=== PATIENT | female | born 1945 | race Caucasian/White ===

== ENCOUNTER → 2017-07-06 11:57 | Outpatient (CLI) | payer OTHER, SELFPAY ==
[2017-07-06 12:31] LABS: Add Manual Diff / Slide Review NO; Basophils Percent Auto 0.6 % (0-2); Hematocrit 36.5 % (36-46); Hemoglobin 12.3 g/dL (12.0-16.0); Lymphocytes Percent Auto 29.3 % (25-40); Mean Corpuscular HGB Conc 33.7 % (30-36); Mean Corpuscular Hemoglobin 29.6 PG (26-34); Monocytes Percent Auto 8.5 % (3-14); Neutrophils Absolute Auto 4200 /uL (3000-5900); Neutrophils Percent Auto 57.6 % (50-75); Platelet Count 249 X10^3/uL (150-400); Red Blood Cell Count 4.15 X10^6/uL (4.0-5.2); Red Cell Distribution Width 14.3 % (11.6-14.8); White Blood Cell Count 7.4 X10^3/uL (4.5-11.0)
[2017-07-06 12:45] LABS: Alanine Aminotransferase 64 IU/L (9-52); Albumin 4.3 g/dL (3.5-5.0); Albumin Globulin Ratio 1.4 (1.0-2.8); Alkaline Phosphatase 65 U/L (38-126); Aspartate Aminotransferase 47 IU/L (14-36); BUN Creatinine Ratio 21.3 (6-22); Bilirubin Total 0.5 mg/dL (0.2-1.3); Calcium 9.3 mg/dL (8.4-10.2); Estimated Glomerular Filt Rate > 60.0 mL/min (>60); Globulin 3.1 g/dL (1.7-4.1); Glucose 156 mg/dL (80-110); HEMOLYSIS < 15 (0-50); Potassium 4.6 mmol/L (3.4-5.1); Sodium 138 mmol/L (137-145); Total Protein 7.4 g/dL (6.3-8.2)
[2017-07-11 15:49] LABS: Chromogranin A, Serum 81 ng/mL (25-140)
[2017-07-14 08:06] LABS: 5-HIAA, Urine 9.5 mg/24 h (< OR = 6.0); Total Volume 2500 mL
== END ==
PROVIDERS: Family Provider Internal Medicine; PCP Internal Medicine; Visit Provider Internal Medicine Hematology & Oncology
DX: C00-D49 Neoplasms (principal)
CPT/HCPCS: 36415; 80053; 82570; 83497; 85025; 86316

== ENCOUNTER → 2017-07-06 13:44 | Outpatient (CLI) | payer OTHER, SELFPAY ==
--- NOTE | 2017-07-06 13:46 | DI.CT.S_ITS ---
PROCEDURE: CT ABDOMEN WO/W CON INDICATIONS: MASS OF SMALL INTESTINE TECHNIQUE: 4 phase scanning was performed. Non-contrast 5 mm axial sections acquired from the diaphragm to the iliac crests. Following the administration of intravenous contrast, 5 mm thick arterial-phase, portal venous-phase, and 5-minute delayed phase images were acquired through the liver. 5 mm thick coronal and sagittal reformats were performed. For radiation dose reduction, the following was used: automated exposure control, adjustment of mA and/or kV according to patient size. COMPARISON: [facility], CT, THORAX WITH CONTRAST, 01/11/2016, 8:48. [facility], CT, ABDOMEN/PELVIS WITH CONTRAST, 10/19/2015, 10:49. FINDINGS: Image quality: Excellent. Lung bases: There is a small subpleural nodule in the right lower lobe measuring up to 5 mm which appears similar to the prior study. Mild dependent atelectasis is present bilaterally. Heart size is normal. Liver: Within the right posterior hepatic dome in segment 7, there is a peripheral subcapsular peripherally enhancing hyperattenuating lesions measuring up to 2.3 x 1.0 x 1.2 cm. In addition, along the falciform ligament of the left hepatic lobe, there is a peripheral subcapsular hyperattenuating lesion measuring approximately 1.5 x 1.1 x 1.1 cm. Given its small size, evaluate for internal enhancement is limited. The findings are new from the prior study. Other solid organs: Gallbladder is surgically absent. Biliary system is non dilated. Pancreas is normal in morphology. Spleen is normal in size and enhancement. No adrenal nodules. Both kidneys demonstrate normal size and enhancement, without hydronephrosis or nephrolithiasis. Nodes and vessels: No retroperitoneal or mesenteric adenopathy by size criteria. Aorta and inferior vena cava are normal in size. Bowel and peritoneum: There are postsurgical changes in the right lower quadrant compatible with prior partial resection. Visualized bowel loops are normal in caliber and wall thickness. No free fluid or air. Bones: No suspicious bony lesions. No vertebral body compression fractures. Miscellaneous: There are postsurgical changes within the ventral abdominal wall. No ventral hernias. IMPRESSION: 1. Demonstration of 2 new subcapsular hypoattenuating lesions in the liver with peripheral enhancement demonstrated within the right lobe lesion. The findings are suspicious for metastatic disease. Dictated by: Carlos Tracey M.D. on 07/06/2017 at 15:43 Approved by: Carlos Tracey M.D. on 07/06/2017 at 15:55
== END ==
PROVIDERS: Family Provider Internal Medicine; PCP Internal Medicine; Visit Provider Internal Medicine Hematology & Oncology
DX: K76.9 Liver disease, unspecified (principal)
CPT/HCPCS: 36415; 74170; 80053; 82570; 83497; 85025; 86316

== ENCOUNTER → 2017-10-30 09:00 | Outpatient (CLI) | payer OTHER, SELFPAY ==
[2017-10-30 09:23] LABS: Add Manual Diff / Slide Review NO; Basophils Percent Auto 0.6 % (0-2); Eosinophils Percent Auto 3.6 % (2-4); Hematocrit 38.6 % (36-46); Hemoglobin 12.9 g/dL (12.0-16.0); Lymphocytes Percent Auto 30.6 % (25-40); Mean Corpuscular HGB Conc 33.3 % (30-36); Mean Corpuscular Hemoglobin 29.6 PG (26-34); Mean Corpuscular Volume 88.7 fL (80-100); Monocytes Percent Auto 8.9 % (3-14); Neutrophils Absolute Auto 4100 /uL (3000-5900); Neutrophils Percent Auto 56.3 % (50-75); Platelet Count 279 X10^3/uL (150-400); Red Blood Cell Count 4.35 X10^6/uL (4.0-5.2); Red Cell Distribution Width 14.2 % (11.6-14.8); White Blood Cell Count 7.3 X10^3/uL (4.5-11.0)
[2017-10-30 09:46] LABS: Alanine Aminotransferase 50 IU/L (9-52); Albumin 4.3 g/dL (3.5-5.0); Albumin Globulin Ratio 1.5 (1.0-2.8); Alkaline Phosphatase 65 U/L (38-126); Aspartate Aminotransferase 40 IU/L (14-36); BUN Creatinine Ratio 16.7 (6-22); Bilirubin Total 0.4 mg/dL (0.2-1.3); Blood Urea Nitrogen 15 mg/dL (7-17); Carbon Dioxide 29 mmol/L (22-32); Chloride 104 mmol/L (98-107); Estimated Glomerular Filt Rate > 60.0 mL/min (>60); Globulin 2.9 g/dL (1.7-4.1); Glucose 145 mg/dL (80-110); HEMOLYSIS < 15 (0-50); Potassium 4.7 mmol/L (3.4-5.1); Sodium 143 mmol/L (137-145); Total Protein 7.2 g/dL (6.3-8.2)
[2017-11-01 18:39] LABS: Chromogranin A, Serum 97 ng/mL (25-140)
== END ==
PROVIDERS: PCP Internal Medicine; Visit Provider Internal Medicine Hematology & Oncology
CPT/HCPCS: 36415; 80053; 85025; 86316

== ENCOUNTER → 2017-10-30 09:19 | Outpatient (CLI) | payer OTHER, SELFPAY ==
--- NOTE | 2017-10-30 10:06 | DI.CT.S_ITS ---
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 5 mm coronal and sagittal reformats were performed, with additional 7 mm coronal MIP reformats through the lungs. For radiation dose reduction, the following was used: automated exposure control, adjustment of mA and/or kV according to patient size. COMPARISON: [facility], CT, ABDOMEN/PELVIS WITH CONTRAST, 10/19/2015, 10:49. [facility], CT, CT ABDOMEN WO/W CON, 07/06/2017, 13:51. FINDINGS: Image quality: Excellent. CHEST: Lungs and pleura: No acute airspace opacities. No pleural effusions or pneumothorax. Central and peripheral airways appear patent and normal in caliber. Mediastinum: Heart size is normal. No pericardial effusion. No mediastinal or hilar adenopathy by size criteria. Thoracic aorta and central pulmonary arteries are normal in size. Esophagus is normal in caliber. No hiatal hernia. Chest wall: No axillary or supraclavicular adenopathy by size criteria. Thyroid gland demonstrates no significant CT abnormality. ABDOMEN: Solid organs: The liver demonstrates 2 lesions that are smaller than on the prior. Adjacent to the falciform ligament there is a 12 by 8 by 15 mm nodule, which previously measured 23 x 10 x 12 mm. Within the subcapsular right lateral liver dome, there is a nodule seen that measures 11 x 11 x 15 mm, which previously measured 15 x 11 x 11 mm. Gallbladder has been removed. Biliary system is non dilated. Pancreas enhances normally. Spleen is normal in size and enhancement. No adrenal nodules. Kidneys demonstrate normal size and enhancement, without hydronephrosis. Peritoneum and bowel: No masses are now seen. Postoperative changes are seen in the right lower quadrant, with anastomotic staple lines. No dilated loops of small bowel are seen. No free air or significant free fluid can be seen. Nodes and vessels: No retroperitoneal or mesenteric adenopathy by size criteria. Aorta and inferior vena cava are normal in size. Bones: No suspicious bony lesions. No vertebral body compression fractures. Miscellaneous: There is a fat-containing ventral hernia seen within the epigastrium, as seen on series 4 image 58. Apparent mesh placement is seen more inferiorly. Age-appropriate bony degenerative changes are seen. IMPRESSION: 2 liver lesions are seen. One of which appears slightly smaller than on the prior and a 2nd that is stable from prior. No new lesions are seen. Incidental note is made of: Right lower quadrant postoperative change Anterior abdominal wall mesh placement Fat-containing ventral wall hernia within the epigastrium Dictated by: Lasha Mason M.D. on 10/30/2017 at 10:13 Approved by: Lasha Mason M.D. on 10/30/2017 at 10:20
== END ==
PROVIDERS: Family Provider Internal Medicine; PCP Internal Medicine; Visit Provider Internal Medicine Hematology & Oncology
DX: C7A.012 Malignant carcinoid tumor of the ileum (principal); C78.7 Secondary malignant neoplasm of liver and intrahepatic bile duct
CPT/HCPCS: 36415; 71260; 72193; 74170; 80053; 85025; 86316; Q9967

== ENCOUNTER → 2017-11-27 09:30 | Outpatient (CLI) | payer OTHER, SELFPAY ==
[2017-11-27 10:27] LABS: Hemoglobin A1C% w Est Avg Glu 6.4 % (4.0-6.0)
[2017-11-27 10:38] LABS: Cholesterol 173 mg/dL (140-199); HDL Cholesterol 53 mg/dL (40-60); LDL Cholesterol Calculated 88 mg/dL (<100); Triglycerides 161 mg/dL (35-150)
== END ==
PROVIDERS: Family Provider Internal Medicine; PCP Internal Medicine; Visit Provider Internal Medicine
DX: E11.9 Type 2 diabetes mellitus without complications (principal); E78.5 Hyperlipidemia, unspecified
CPT/HCPCS: 36415; 80061; 83036

== ENCOUNTER 2017-12-06 07:46 | Day surgery (SDC) | payer OTHER, SELFPAY ==
[2017-12-06] VITALS (8 sets, daily range): BP systolic 128–148; BP diastolic 68–80; PULSE 76–95; RESP 10–16; TEMP 35.8–37.1; O2SAT 90–95; BMI 34.7
[2017-12-06] MEDS: LACTATED RINGERS 1,000 ML 100 ML IV (08:16)
[2017-12-06] MEDS: CEFAZOLIN 2 GM/100 ML FROZ.PIGGY IV (08:45)
--- NOTE | 2017-12-06 09:07 | SUR.OPER ---
Supine on padded OR bed, head on pillow, arms secured on padded arm boards at <90 degrees abduction, legs uncrossed, safety belt at thigh, tape over blanket over lower legs.
[2017-12-06] MEDS: BUPIVACAINE 0.5% (PF) VIAL 30 ML INJ (09:18)
[2017-12-06] MEDS: LIDOCAINE 1% W/EPI INJ 20 ML INJ (09:19)
[2017-12-06] MEDS: CEFAZOLIN 1 GM VIAL IV (09:40)
--- NOTE | 2017-12-06 09:56 | PM.OP.1 ---
Operative Date/Time/Diagnoses Date of procedure: 12/06/17 Time of procedure: 09:57 Pre-op diagnosis: Incisional Hernia Post-op diagnosis: same Procedure & Clinicians Procedure: Incisional Hernia Repair Same procedure as scheduled: Yes Indications: Enlarging and painful incisional hernia Click Yes if Unassisted: Yes Anesthesia Type: General (Abdontlarctheayk) Operative Notes Findings: 8x6 cm Incisional Hernia containing transverse colon and omentum Closure Type: primary Specimen(s): none sent Implants & Drains: 8 cm circular CQur mesh implant Estimated Blood Loss (mL): 3 Blood products transfused: none Procedure in detail: After obtaining informed consent, the patient was brought to the operating room and placed in the supine position on the operating table. Following successful induction of general endotracheal, placement of appropriate monitors, and padding of all bony prominences, the abdomen was prepped and draped in the standard surgical fashion. A time-out was held per SCOAP protocol. Following infiltration with local anesthetic to create a field block, an incision was created directly over the hernia in the epigastrium and carried down through the skin subcutaneous tissue. This was all done sharply and very carefully. We immediately encountered the transverse colon which was carefully preserved. Dissection was continued to liberate the hernia sac from the overlying fascia. The omentum was freed superiorly so that it could overlie the colon. Once this was done we attempted to repair the hernia. We initially tried to repair the hernia directly using Prolene suture of the bed there were such enormous tension this matted was abandoned. Closing the upper and lower portions of the hernia with 0 Prolene suture, an 8 x 8 cm portion of C cur mesh was placed in the hernia defect. This size was chosen because it covered the defect without impinging too much on the xiphoid process which extended into the wound. The fascia over the the xiphoid process was closed to cover this bone. The graft fit nicely in the wound and was flattened. It was sewn to the fascial edges using Prolene suture. The wound was irrigated with warm saline solution and aspirated free of all fluid. The subcutaneous tissue was closed with Vicryl sutures and Monocryl was placed in the skin. All sponge, needle, and instrument counts were correct at the conclusion of the case. The patient was allowed to wake from anesthesia without difficulty and taken to the post anesthesia care unit in good condition. Complications: none Condition: stable Disposition: PACU Plan for aftercare: 1. Discharge to home 2. Follow up with me in 2 weeks
--- NOTE | 2017-12-06 10:23 | PM.PREOP ---
Pre-operative Note Interval Note Pre-op Check: Yes History & Physical Reviewed by Physician Changes: No
--- NOTE | 2017-12-06 10:33 | SUR.PHASEI ---
stablee pacu stay. to opd.
[2017-12-06] MEDS: OXYCODONE/ACETAMINOPHEN 5/325 TABLET 1 TAB PO (10:40)
--- NOTE | 2017-12-06 10:43 | SUR.PHASEII ---
pain rated 3/10, medicated with 1 percocet after tolerated applesauce. called for peanut picker.
--- NOTE | 2017-12-06 10:53 | SUR.PHASEII ---
here, vss, discussed d/c instructions, both voiced an understanding.
== END 2017-12-06 11:05 | disposition home or self-care (01) ==
PROVIDERS: PCP Internal Medicine; Visit Provider Surgery
PROC: (CPT 49560; principal; 2017-12-06 08:45)
DX: K43.2 Incisional hernia without obstruction or gangrene (principal); E11.9 Type 2 diabetes mellitus without complications; I10 Essential (primary) hypertension; E66.9 Obesity, unspecified; Z79.84 Long term (current) use of oral hypoglycemic drugs
CPT/HCPCS: 49560; 49568; C1781; J0690; J2405; J2704; J3010

== ENCOUNTER → 2018-07-03 08:17 | Outpatient (CLI) | payer OTHER, SELFPAY ==
[2018-07-03 09:27] LABS: Add Manual Diff / Slide Review NO; Basophils Absolute Auto 100 /uL (0-100); Basophils Percent Auto 0.6 % (0-2); Eosinophils Absolute Auto 200 /uL (0-450); Eosinophils Percent Auto 2.1 % (2-4); Hematocrit 39.1 % (36-46); Lymphocytes Absolute Auto 2700 /uL (1100-4500); Lymphocytes Percent Auto 33.5 % (25-40); Mean Corpuscular HGB Conc 33.4 % (30-36); Mean Corpuscular Hemoglobin 29.5 PG (26-34); Mean Corpuscular Volume 88.5 fL (80-100); Monocytes Absolute Auto 700 /uL (0-900); Monocytes Percent Auto 8.6 % (3-14); Neutrophils Absolute Auto 4500 /uL (1500-7000); Neutrophils Percent Auto 55.2 % (50-75); Platelet Count 294 X10^3/uL (150-400); Red Blood Cell Count 4.42 X10^6/uL (4.0-5.2); Red Cell Distribution Width 14.4 % (11.6-14.8); White Blood Cell Count 8.2 X10^3/uL (4.5-11.0)
[2018-07-03 09:29] LABS: Hemoglobin A1C% w Est Avg Glu 5.9 % (4.0-6.0)
[2018-07-03 09:36] LABS: Alanine Aminotransferase 33 IU/L (9-52); Albumin 4.6 g/dL (3.5-5.0); Albumin Globulin Ratio 1.5 (1.0-2.8); Alkaline Phosphatase 70 U/L (38-126); Aspartate Aminotransferase 30 IU/L (14-36); BUN Creatinine Ratio 18.8 (6-22); Bilirubin Total 0.4 mg/dL (0.2-1.3); Blood Urea Nitrogen 15 mg/dL (7-17); Calcium 9.4 mg/dL (8.4-10.2); Carbon Dioxide 25 mmol/L (22-32); Chloride 102 mmol/L (98-107); Cholesterol 175 mg/dL (140-199); Estimated Glomerular Filt Rate > 60.0 mL/min (>60); Glucose 131 mg/dL (80-110); HDL Cholesterol 52 mg/dL (40-60); HEMOLYSIS < 15 (0-50); LDL Cholesterol Calculated 89 mg/dL (<100); Potassium 4.4 mmol/L (3.4-5.1); Sodium 139 mmol/L (137-145); Total Protein 7.6 g/dL (6.3-8.2); Triglycerides 168 mg/dL (35-150)
[2018-07-03 10:22] LABS: Vitamin D 25 Hydroxy (D3) 39.9 ng/mL (30.0-100.0)
[2018-07-03 10:25] LABS: Microalbumin Urine Random 2.2 mg/dL (0-1.6)
[2018-07-03 10:26] LABS: Creatinine Urine Random 95.4 mg/dL
[2018-07-03 10:35] LABS: Hep C Virus Ab w/Reflex Quant NEGATIVE s/c (NEGATIVE)
== END ==
PROVIDERS: PCP Internal Medicine; Visit Provider Nurse Practitioner Family
DX: E11.9 Type 2 diabetes mellitus without complications (principal); Z11.59 Encounter for screening for other viral diseases; Z13.29 Encounter for screening for other suspected endocrine disorder; Z86.39 Personal history of other endocrine, nutritional and metabolic disease
CPT/HCPCS: 36415; 80053; 80061; 82043; 82306; 82570; 83036; 84443; 85025; 86803

== ENCOUNTER → 2018-07-06 15:24 | Outpatient (CLI) | payer OTHER, SELFPAY ==
--- NOTE | 2018-07-06 | DI.RAD.S_ITS ---
PROCEDURE: XR LUMBAR SPINE 2-3V INDICATIONS: LOW BACK PAIN TECHNIQUE: 3 views of the lumbar spine were acquired. COMPARISON: [facility], , L-SPINE 2-3 VIEWS, 07/24/2012, 8:21. FINDINGS: Bones: 5 [id number] vertebrae are present. There is grade 1 anterolisthesis of L4 on L5 and L3 on L4. Grade 1 retrolisthesis of L1 on L2 and L2 on L3 is also seen. No vertebral body compression fractures. Degenerative endplate changes and bilateral facet arthrosis throughout lumbar spine is seen. No suspicious bony lesions. Soft tissues: Overlying bowel gas pattern is normal. No suspicious soft tissue calcifications. IMPRESSION: Degenerative disc disease throughout lumbar spine. Grade 1 spondylolisthesis at L1-2 through L4-5 levels as above. No acute compression fracture. Dictated by: Chito Rodríguez M.D. on 07/06/2018 at 16:55 Approved by: Chito Rodríguez M.D. on 07/06/2018 at 16:57
== END ==
PROVIDERS: PCP Internal Medicine; Visit Provider Nurse Practitioner Family
DX: M54.5 Low back pain (principal); M51.36 Other intervertebral disc degeneration, lumbar region; M43.16 Spondylolisthesis, lumbar region
CPT/HCPCS: 72100

== ENCOUNTER → 2018-07-27 12:41 | Outpatient (CLI) | payer OTHER, SELFPAY ==
--- NOTE | 2018-07-27 | DI.MG.S_ITS ---
BILATERAL DIGITAL SCREENING MAMMOGRAM 3D/2D WITH CAD: 07/27/2018 CLINICAL: Routine screening. Family history of breast cancer. Comparison is made to exams dated: 12/20/2016 mammogram, 12/07/2016 mammogram, 11/15/2016 mammogram, 10/02/2015 mammogram - [facility], 12/30/2016 stereotactic biopsy - [facility], and 11/18/2013 mammogram - [facility]. There are scattered fibroglandular elements in both breasts. Current study was also evaluated with a Computer Aided Detection (CAD) system. There is a benign biopsy clip in the right breast. There also are benign biopsy clips in the left breast. There is a mole marker on the right breast. There are mole markers on the left breast. No significant masses, calcifications, or other findings are seen in either breast. There has been no significant interval change. IMPRESSION: NEGATIVE There is no mammographic evidence of malignancy. A 1 year screening mammogram is recommended. This exam was interpreted at Station ID: [id number]. NOTE: For mammograms, a report in lay terms will be sent to the patient. Approximately 15% of breast malignancies will not be visualized mammographically. In the management of a palpable breast mass, a negative mammogram must not discourage biopsy of a clinically suspicious lesion. Electronically Signed By: Vincent mayberry/nicole:07/27/2018 18:29:24 letter sent: Normal Exam ACR BI-RADS Category 1: Negative 3341F
== END ==
PROVIDERS: PCP Nurse Practitioner Family; Visit Provider Nurse Practitioner Family
DX: Z12.31 Encounter for screening mammogram for malignant neoplasm of breast (principal); Z80.3 Family history of malignant neoplasm of breast; M85.851 Other specified disorders of bone density and structure, right thigh; Z78.0 Asymptomatic menopausal state; E11.9 Type 2 diabetes mellitus without complications; Z87.891 Personal history of nicotine dependence
CPT/HCPCS: 77063; 77067; 77080

== ENCOUNTER → 2018-07-30 14:33 | Outpatient (CLI) | payer OTHER, SELFPAY ==
[2018-08-06 11:02] LABS: 5-HIAA, Urine 12.5 mg/24 h (< OR = 6.0); Total Volume 1250 mL
== END ==
PROVIDERS: PCP Nurse Practitioner Family; Visit Provider Internal Medicine Hematology & Oncology
DX: C78.7 Secondary malignant neoplasm of liver and intrahepatic bile duct (principal)
CPT/HCPCS: 82570; 83497

== ENCOUNTER → 2018-08-27 10:51 | Outpatient (CLI) | payer OTHER, SELFPAY ==
--- NOTE | 2018-08-27 10:52 | DI.CT.S_ITS ---
PROCEDURE: CT CHEST ABD PEL W CON INDICATIONS: carcinoid TECHNIQUE: After the administration of oral and intravenous contrast, 5 mm thick sections acquired from the lung apices to the symphysis. 5 mm coronal and sagittal reformats were performed, with additional 7 mm coronal MIP reformats through the lungs. For radiation dose reduction, the following was used: automated exposure control, adjustment of mA and/or kV according to patient size. COMPARISON: [facility], CT, CT CHEST ABD PEL W ABD WO, 10/30/2017, 10:10. FINDINGS: Image quality: Excellent. CHEST: Lungs and pleura: 5 mm nodular density in posterior lateral aspect of left lung base is seen series 4 image 223. 4 mm nodular pleural thickening in posterior aspect of left lung base is also seen series 4 image 246. No acute airspace opacities. No discrete right lung nodule. No pleural effusions or pneumothorax. Central and peripheral airways appear patent and normal in caliber. Mediastinum: Heart size is normal. No pericardial effusion. No mediastinal or hilar adenopathy by size criteria. Thoracic aorta and central pulmonary arteries are normal in size. Esophagus is normal in caliber. No hiatal hernia. Chest wall: No axillary or supraclavicular adenopathy by size criteria. Thyroid gland is within normal limits. ABDOMEN: Solid organs: Liver is normal in size. Previously described 12 x 8 x 15 mm hypodensity adjacent to falciform ligament now measures 10 x 6 mm in size. Previously described 15 x 11 x 11 mm hypodense area involving subcapsular right lateral hepatic dome now measures 15 x 7 x 7 mm in size. No new hepatic lesion is seen. Gallbladder is surgically absent. Biliary system is non dilated. Pancreas enhances normally. Spleen is normal in size and enhancement. No adrenal nodules. Kidneys demonstrate normal size and enhancement, without hydronephrosis. Peritoneum and bowel: Bowel loops demonstrate normal wall thickness and caliber. No free fluid or air. Post surgical changes in right lower quadrant abdomen is again seen. Nodes and vessels: No retroperitoneal or mesenteric adenopathy by size criteria. Aorta and inferior vena cava are normal in size. Miscellaneous: Fat containing ventral hernia is again seen and unchanged. PELVIS: Genitourinary: Bladder wall thickness is normal. Miscellaneous: No inguinal hernias or adenopathy. Bones: No suspicious bony lesions. No vertebral body compression fractures. Degenerative disc disease throughout thoracic and lumbar spine is seen. IMPRESSION: 1. Tiny 4-5 mm nodular densities in left lung base as described above, not definitively seen on previous study, consider followup CT study in 6-12 months for evaluation of stability. 2. Interval further decrease in size of patient's known hypodense areas in right and left hepatic lobes as described above. 3. Post surgical changes in right lower quadrant abdomen. Ventral hernia containing fat only. Anterior abdominal wall mesh placement. These are unchanged from prior study. Dictated by: Chito Rodríguez M.D. on 08/27/2018 at 15:32 Approved by: Chito Rodríguez M.D. on 08/27/2018 at 15:43
== END ==
PROVIDERS: PCP Nurse Practitioner Family
DX: C7A.012 Malignant carcinoid tumor of the ileum (principal); R91.8 Other nonspecific abnormal finding of lung field; Z90.49 Acquired absence of other specified parts of digestive tract; K43.9 Ventral hernia without obstruction or gangrene; R16.0 Hepatomegaly, not elsewhere classified
CPT/HCPCS: 71260; 74177; Q9967

== ENCOUNTER → 2018-10-25 08:09 | Outpatient (CLI) | payer OTHER, SELFPAY ==
--- NOTE | 2018-10-25 08:12 | DI.MRI.S_ITS ---
PROCEDURE: MR LUMBAR SPINE WO CON INDICATIONS: Right L4-5 L5-S1 facet pain TECHNIQUE: Noncontrast sagittal T1 spin echo and T2 fast echo, sagittal STIR, axial T1 and T2 fast spin echo through the lumbar spine. In cases with scoliosis, additional coronal T2 fast spin echo may be performed. COMPARISON: [facility], CR, XR LUMBAR SPINE 2-3V, 07/06/2018, 15:34. FINDINGS: Image quality: Excellent. Alignment and Curvature: There is mild L3-L4 and L4-L5 anterolisthesis secondary to facet hypertrophy. Bone Marrow: Marrow is of normal overall signal. No acute vertebral body compression fractures. Spinal Cord: Conus medullaris terminates at the L1-2 disc level. Visualized cord demonstrates normal signal and size. Paraspinous Soft Tissues: No paravertebral masses. L1-L2: Loss of disc signal. Mild, diffuse disc bulge. Mild narrowing of the central canal. Mild bilateral neural foraminal narrowing. No neural compression. L2-L3: Loss of disc signal. Mild, diffuse disc bulge. Mild narrowing of the central canal. Mild bilateral neural foraminal narrowing. No neural compression. L3-L4: Loss of disc signal. Mild, diffuse disc bulge. Moderate to severe bilateral facet hypertrophy. Mild narrowing of the central canal. Mild to moderate right and moderate left neural foraminal narrowing. No neural compression. Fissure noted in the anterior annulus. L4-L5: Loss of disc signal. Mild, diffuse disc bulge. Severe facet and ligamentum flavum hypertrophy. Severe narrowing of the central canal with compression of the nerve roots of the cauda equina. Moderate to severe right and moderate left neural foraminal narrowing and slight compression of the exiting right L4 nerve root. L5-S1: Loss of disc signal. Mild, diffuse disc bulge. Mild right and moderate left facet hypertrophy. Mild narrowing of the central canal. Severe bilateral neural foraminal narrowing with compression of the exiting L5 nerve roots. There is a fissure in posterior annulus. IMPRESSION: 1. Grade I L3-L4 and L4-L5 degenerative spondylolisthesis. 2. Multilevel degenerative disc disease. 3. Multilevel facet arthropathy. 4. Severe L4-L5 central canal narrowing. Mild L1-L2, L2-L3, L3-L4 and L5-S1 central canal narrowing. 5. Severe bilateral L5-S1 neural foraminal narrowing. Moderate to severe right and moderate left L4-L5 neural foraminal narrowing. Mild to moderate right and moderate left L3-L4 neural foraminal narrowing. Mild bilateral L1-L2 and L2-L3 neural foraminal narrowing. Dictated by: Pam Weathers MD, PhD on 10/25/2018 at 11:39 Approved by: Pam Weathers MD, PhD on 10/25/2018 at 11:43
== END ==
PROVIDERS: PCP Nurse Practitioner Family; Visit Provider Physical Medicine & Rehabilitation
DX: M47.27 Other spondylosis with radiculopathy, lumbosacral region (principal); M43.16 Spondylolisthesis, lumbar region; M51.16 Intervertebral disc disorders with radiculopathy, lumbar region; M48.061 Spinal stenosis, lumbar region without neurogenic claudication; M96.1 Postlaminectomy syndrome, not elsewhere classified
CPT/HCPCS: 72148

== ENCOUNTER 2018-12-04 13:22 | Outpatient (CLI) | payer OTHER, SELFPAY ==
[2018-12-04] VITALS (9 sets, daily range): BP systolic 120–144; BP diastolic 63–71; PULSE 61–67; RESP 16–20; O2SAT 94–100
--- NOTE | 2018-12-04 13:24 | DI.RAD.S_ITS ---
PROCEDURE: PAIN L/SI FACET INJ/BLK 1STL INDICATIONS: SPONDYLOSIS FINDINGS: Fluoroscopic spot filming was performed to verify placement of spinal needles at the right L3-4, L4-5 and L5-S1 facet joints level(s), as labeled on the films. Appropriate location(s) of the needle tip(s) was confirmed by injection of iodinated contrast. IMPRESSION: Successful needle tip localization for facet joint injections on the right as noted above. Dictated by: Wyatt Roche M.D. on 12/04/2018 at 16:30 Approved by: Wyatt Roche M.D. on 12/04/2018 at 16:30
[2018-12-04] MEDS: MIDAZOLAM 5 MG/5 ML VIAL IV (13:59)
[2018-12-04] MEDS: fentaNYL 100 MCG/2 ML INJ 50 MCG IV (13:59)
[2018-12-04] MEDS: LIDOCAINE 1% 20 ML 10 ML INJ (14:05)
[2018-12-04] MEDS: IOPAMIDOL 15 ML VIAL 3 ML INJ (14:05)
[2018-12-04] MEDS: BUPIVACAINE 0.5% (PF) VIAL 2 ML INJ (14:06)
[2018-12-04] MEDS: BETAMETHASONE 30 MG/5 ML MDV 12 MG INJ (14:06)
--- NOTE | 2018-12-04 14:08 | PC.NURSE ---
ASSISTING PT OFF TABLE AND TRANSPORTING TO POST PROC AREA IN STABLE CONDITION. PASSING NURSING CARE OF PT OFF TO CARTER Man RN.
--- NOTE | 2018-12-04 14:20 | P.PCN_ITS ---
Procedures Date/Time Date of procedure: 12/04/18 Time of procedure: 14:20 General Procedure description: PREOP DIAGNOSIS 1. FACET ARTHROPATHY, 2. AXIAL LBP, 3. MULTILEVEL DDD, POST OP DIAGNOSIS 1. FACET ARTHROPATHY, 2. AXIAL LBP, 3. MULTILEVEL DDD, PROCEDURES 1. FLUORSCOPICALLY GUIDED CONTRAST CONTROLLED FACET JOINT INJECTIONS RIGHT L3/4, L4/5, L5/S1 SURGEON: Derrick Barraza, DO INDICATIONS Sanna is referred by COLLEEN Eason for treatment of Axial LBP FINDINGS Multilevel Facet Arthropathy with Clinically significant axial LBP DESCRIPTION OF PROCEDURE Fluoroscopically guided, contrast-controlled right L3/4, L4/5, L5/S1 facet joint injections. Following review of allergy and review of potential side effects and complications, including, but not necessarily limited to, infection, allergic reaction, local tissue breakdown, stroke, temporary or permanent nerve injury, paralysis, and possible , the patient indicated that the patient understood and agreed to proceed. An informed consent document was signed by the patient, witnessed by a nurse, and placed in the patient's chart. Additionally, other treatment options including medications, modalities, and physical therapy were reviewed with the patient. After review of previous anaesthesic history and IV conscious sedation the patient was deemed safe to proceed with todays procedure with IV conscious sedation as ASA class II designation. Safety time-out was performed to confirm patient ID, procedure to be performed and site of procedure. IV sedation was accomplished with a combination of 2mg of Versed and 50mcg of Fentanyl was administered by the RN after DO order, titrated to patient comfort during the course of the procedure while the patient remained responsive to all verbal commands. In the prone position, following sterile prep and drape of the lumbar region, the posterior aspect of the right L3/4, L4/5, L5/S1 facet joints were identified fluoroscopically. The skin was anesthetized via a 25-gauge 1.5-inch needle with 1% lidocaine solution into the corresponding facet joints. At this point, a 22- gauge 3.5-inch spinal needle was atraumatically introduced and advanced under fluoroscopic guidance into the corresponding facet joints. Following negative aspiration, injections of approximately 0.2-cc of Isovue 200 confirmed interarticular placement without vascular uptake. Radiological data, including multiple fluoroscopic views of the lumbosacral spine, reveal a spinal needle at the right L3/4, L4/5, L5/S1 facet joints. Subsequent views show flow of contrast material both superiorly and inferiorly within the joint space without vascular or intrathecal uptake. At this point, a total of 0.5 cc including a mixture of 0.25cc Marcaine and 0.25cc betamethasone was injected without complication into each of the maya esponding facet joints. The procedure tolerated the procedure well without signs or symptoms of complications prior to transfer to the recovery area continued monitoring without incident. The patient was then transferred to the recovery area where they were observed for an appropriate period of time after the injection. The patient reported a VAS score of 7 prior to the procedure and a post-procedure VAS of 0. Total Fluoroscopy Time: 12.7 seconds Total Conscious Sedation Time: 24min POST OP INSTRUCTIONS The patient was provided a Pain Log to continue to record their response to the target-specific procedure prior to follow-up visit with their referring physician. Additionally, specific post-injection care instructions and a contact number to our office were provided if concerns arise regarding possible complications associated with the procedure are suspected. Derrick Barraza DO Complications: none
--- NOTE | 2018-12-04 16:28 | PC.NURSE ---
Discharge note: Patient arrived for post pocedure monitoring at 1418. VSS, O2 sat WNL, Drowsy but awake. at chairside. Tolerating po without nausea. No complaints of pain or unusual numbness or tingling to lower extremities. Discharge instructions reviewed with patient and with good understanding. Able to stand and transfer to wheelchair without difficulty. Stable for discharge to home, W/C to car.
== END 2018-12-04 14:55 ==
LOC: RAD 13:23
PROVIDERS: PCP Nurse Practitioner Family; Visit Provider Physical Medicine & Rehabilitation
DX: M47.817 Spondylosis without myelopathy or radiculopathy, lumbosacral region (principal); M47.816 Spondylosis without myelopathy or radiculopathy, lumbar region; M54.5 Low back pain; M51.36 Other intervertebral disc degeneration, lumbar region; M51.37 Other intervertebral disc degeneration, lumbosacral region
CPT/HCPCS: 64493; 64494; 64495; 99152; J0702; J2250; J3010

== ENCOUNTER → 2019-07-22 07:25 | Outpatient (CLI) | payer MEDICARE, SELFPAY ==
[2019-07-22 08:05] LABS: Hemoglobin A1C% w Est Avg Glu 6.3 % (4.0-6.0)
[2019-07-22 08:09] LABS: BUN Creatinine Ratio 20.7 (6-22); Blood Urea Nitrogen 18 mg/dL (7-17); Calcium 9.8 mg/dL (8.4-10.2); Carbon Dioxide 25 mmol/L (22-32); Chloride 103 mmol/L (98-107); Cholesterol 176 mg/dL (140-199); Estimated Glomerular Filt Rate > 60.0 mL/min (>60); Glucose 131 mg/dL (80-110); HDL Cholesterol 53 mg/dL (40-60); HEMOLYSIS < 15 (0-50); LDL Cholesterol Calculated 84 mg/dL (<100); Potassium 4.8 mmol/L (3.4-5.1); Sodium 138 mmol/L (137-145); Triglycerides 197 mg/dL (35-150)
[2019-07-22 16:02] LABS: Creatinine Urine Random 151.3 mg/dL
[2019-07-22 16:05] LABS: Microalbumi Creatinin Ratio Ur 19.8 ug/mg CR (<30)
== END ==
PROVIDERS: PCP Internal Medicine; Referring Provider Internal Medicine; Visit Provider Internal Medicine
DX: E11.9 Type 2 diabetes mellitus without complications (principal); I10 Essential (primary) hypertension; E78.5 Hyperlipidemia, unspecified
CPT/HCPCS: 36415; 80048; 80061; 82043; 82570; 83036

== ENCOUNTER → 2019-07-29 11:06 | Outpatient (CLI) | payer MEDICARE, SELFPAY ==
--- NOTE | 2019-07-29 | DI.MG.S_ITS ---
BILATERAL DIGITAL SCREENING MAMMOGRAM 3D/2D WITH CAD: 07/29/2019 CLINICAL: Routine screening. Family history of breast cancer. Comparison is made to exams dated: 11/15/2016 mammogram, 10/02/2015 mammogram, 11/18/2013 mammogram, and 07/27/2018 mammogram - [facility]. There are scattered fibroglandular elements in both breasts. Current study was also evaluated with a Computer Aided Detection (CAD) system. There is a biopsy clip in the right breast. There also are biopsy clips in the left breast. There is a mole marker on the right breast. There are mole markers on the left breast. No significant masses, calcifications, or other findings are seen in either breast. There has been no significant interval change. IMPRESSION: NEGATIVE There is no mammographic evidence of malignancy. A 1 year screening mammogram is recommended. This exam was interpreted at Station ID: [id number]. NOTE: For mammograms, a report in lay terms will be sent to the patient. Approximately 15% of breast malignancies will not be visualized mammographically. In the management of a palpable breast mass, a negative mammogram must not discourage biopsy of a clinically suspicious lesion. Electronically Signed By: Sebastián alves/nicole:07/29/2019 11:27:54 letter sent: Normal Exam ACR BI-RADS Category 1: Negative 3341F
--- NOTE | 2019-08-13 15:50 | ONC.SCHED ---
Waiting for approval for CT scan.
== END ==
PROVIDERS: PCP Internal Medicine; Referring Provider Internal Medicine; Visit Provider Internal Medicine
DX: Z12.31 Encounter for screening mammogram for malignant neoplasm of breast (principal); Z80.3 Family history of malignant neoplasm of breast
CPT/HCPCS: 77063; 77067

== ENCOUNTER → 2019-08-16 09:21 | Outpatient (CLI) | payer MEDICARE, SELFPAY ==
--- NOTE | 2019-08-16 10:20 | DI.CT.S_ITS ---
PROCEDURE: CT CHEST ABD PEL W CON INDICATIONS: f/u carcinoid TECHNIQUE: After the administration of oral and intravenous contrast, 5 mm thick sections acquired from the lung apices to the symphysis. 5 mm coronal and sagittal reformats were performed, with additional 7 mm coronal MIP reformats through the lungs. For radiation dose reduction, the following was used: automated exposure control, adjustment of mA and/or kV according to patient size. COMPARISON: [facility], CT, ABDOMEN/PELVIS WITH CONTRAST, 10/19/2015, 10:49. [facility], CT, CT CHEST ABD PEL W CON, 08/27/2018, 12:02. FINDINGS: Image quality: Excellent. CHEST: Lungs and pleura: No acute airspace opacities. No pleural effusions or pneumothorax. Central and peripheral airways appear patent and normal in caliber. The previously identified sub-centimeter bilateral pulmonary nodules are unchanged. There is a 5 mm groundglass like appearing nodular focus in the medial posterior left lower lobe on series 3 image 255, new compared to prior exam. Mediastinum: Heart size is normal. No pericardial effusion. No mediastinal or hilar adenopathy by size criteria. Thoracic aorta and central pulmonary arteries are normal in size. Esophagus is normal in caliber. No hiatal hernia. Chest wall: No axillary or supraclavicular adenopathy by size criteria. Thyroid gland is unremarkable. ABDOMEN: Solid organs: Liver is enlarged. Previous identified hepatic hyper densities are unchanged. Hepatic steatosis is present. Gallbladder has been removed. Biliary system is non dilated. Pancreas enhances normally. Spleen is normal in size and enhancement. No adrenal nodules. Kidneys demonstrate normal size and enhancement, without hydronephrosis. Peritoneum and bowel: Bowel loops demonstrate normal wall thickness and caliber. No free fluid or air. Postsurgical changes are present within the distal small bowel. Nodes and vessels: No retroperitoneal or mesenteric adenopathy by size criteria. Aorta and inferior vena cava are normal in size. Miscellaneous: No ventral hernias. PELVIS: Genitourinary: Bladder wall thickness is normal. Miscellaneous: No inguinal hernias or adenopathy. Bones: No suspicious bony lesions. No vertebral body compression fractures. IMPRESSION: 1. 5 mm groundglass like appearing nodular opacity within the left lower lobe as above. Given history of carcinoid, three-month interval followup is recommended to document stability. Dictated by: Deedee Humphrey M.D. on 08/16/2019 at 14:31 Approved by: Deedee Humphrey M.D. on 08/16/2019 at 14:39
== END ==
PROVIDERS: PCP Internal Medicine
DX: C7A.012 Malignant carcinoid tumor of the ileum (principal); R91.8 Other nonspecific abnormal finding of lung field; R16.0 Hepatomegaly, not elsewhere classified; K76.0 Fatty (change of) liver, not elsewhere classified; Z90.49 Acquired absence of other specified parts of digestive tract
CPT/HCPCS: 71260; 74177

== ENCOUNTER → 2019-10-14 08:50 | Outpatient (CLI) | payer MEDICARE, SELFPAY ==
[2019-10-15 20:09] LABS: COVID19 Sendout Not Detected (Not Detect)
== END ==
PROVIDERS: PCP Internal Medicine; Visit Provider Physician Assistant
DX: Z11.59 Encounter for screening for other viral diseases (principal)
CPT/HCPCS: 87635

== ENCOUNTER 2019-10-17 07:31 | Outpatient (CLI) | payer MEDICARE, SELFPAY ==
[2019-10-17] VITALS (10 sets, daily range): BP systolic 112–179; BP diastolic 56–95; PULSE 62–75; RESP 11–19; TEMP 36.3; O2SAT 92–100
--- NOTE | 2019-10-17 07:32 | DI.RAD.S_ITS ---
PROCEDURE: PAIN L/SI FACET INJ/BLK 1STL INDICATIONS: SPONDYLOSIS COMPARISON: [facility], CT, CT CHEST ABD PEL W CON, 08/16/2019, 10:12. [facility], XA, PAIN L/SI FACET INJ/BLK 1STL, 12/04/2018, 14:01. FINDINGS: Fluoroscopic spot filming was performed to verify placement of spinal needles at the L3 through L5 facet joint level(s), as labeled on the films. Appropriate location(s) of the needle tip(s) was confirmed by injection of iodinated contrast. IMPRESSION: Appropriate needle tip localization for left-sided L3-L4, L4-L5, and L5-S1 facet joint injections Dictated by: Wyatt Roche M.D. on 10/17/2019 at 9:04 Approved by: Wyatt Roche M.D. on 10/17/2019 at 9:08
[2019-10-17] MEDS: MIDAZOLAM 5 MG/5 ML VIAL IV (08:26)
[2019-10-17] MEDS: fentaNYL 100 MCG/2 ML INJ 50 MCG IV (08:26)
[2019-10-17] MEDS: BUPIVACAINE 0.5% (PF) VIAL 5 ML INJ (08:36)
[2019-10-17] MEDS: BETAMETHASONE 30 MG/5 ML MDV 12 MG INJ (08:36)
[2019-10-17] MEDS: LIDOCAINE 1% 20 ML 10 ML INJ (08:36)
[2019-10-17] MEDS: IOPAMIDOL 15 ML VIAL 3 ML INJ (08:36)
--- NOTE | 2019-10-17 08:44 | P.PCN_ITS ---
Date/Time/Diagnoses Date of procedure: 10/17/19 Time of procedure: 08:45 Pre-procedure diagnosis: 1. FACET ARTHROPATHY, 2. AXIAL LBP, 3. MULTILEVEL DDD Post-procedure diagnosis: same Procedure Notes Procedure: 1. FLUOROSCOPICALLY GUIDED CONTRAST CONTROLLED FACET JOINT INJECTIONS LEFT L3/4, L4/5, L5/S1 Indications: Sanna is referred by for treatment of Axial LBP Physician: Derrick Barraza Total Fluoroscopy time (seconds): 6 Total sedation minutes: 12 Complications: none Procedure in detail & Post-procedure care: FINDINGS Multilevel Facet Arthropathy with Clinically significant axial LBP DESCRIPTION OF PROCEDURE Fluoroscopically guided, contrast-controlled left L3/4, L4/5, L5/S1 facet joint injections. Following review of allergy and review of potential side effects and complications, including, but not necessarily limited to, infection, allergic reaction, local tissue breakdown, stroke, temporary or permanent nerve injury, paralysis, and possible , the patient indicated that the patient understood and agreed to proceed. An informed consent document was signed by the patient, witnessed by a nurse, and placed in the patient's chart. Additionally, other treatment options including medications, modalities, and physical therapy were reviewed with the patient. After review of previous anaesthesic history and IV conscious sedation the patient was deemed safe to proceed with today?s procedure with IV conscious sedation as ASA class II designation. Safety time-out was performed to confirm patient ID, procedure to be performed and site of procedure. IV sedation was accomplished with a combination of 2mg of Versed and 50mcg of Fentanylwas administered by the RN after DO order, titrated to patient comfort during the course of the procedure while the patient remained responsive to all verbal commands. In the prone position, following sterile prep and drape of the lumbar region, the posterior aspect of the left L3/4, L4/5, L5/S1 facet joints were identified fluoroscopically. The skin was anesthetized via a 25-gauge 1.5-inch needle with 1% lidocaine solution into the corresponding facet joints. At this point, a 22- gauge 3.5-inch spinal needle was atraumatically introduced and advanced under fluoroscopic guidance into the corresponding facet joints. Following negative aspiration, injections of approximately 0.2-cc of Isovue 200 confirmed interarticular placement without vascular uptake. Radiological data, including multiple fluoroscopic views of the lumbosacral spine, reveal a spinal needle at the left L3/4, L4/5, L5/S1 facet joints. Subsequent views show flow of contrast material both superiorly and inferiorly within the joint space without vascular or intrathecal uptake. At this point, a total of 0.5cc including a mixture of 0.25cc Marcaine and 0.25cc betamethasone was injected without complication into each of the corresponding facet joints. The procedure tolerated the procedure well without signs or symptoms of complications prior to transfer to the recovery area continued monitoring without incident. The patient was then transferred to the recovery area where they were observed for an appropriate period of time after the injection. The patient reported a VAS score of 7 prior to the procedure and a post-procedure VAS of 0. POST OP INSTRUCTIONS The patient was provided a Pain Log to continue to record their response to the target-specific procedure prior to follow-up visit with their referring physician. Additionally, specific post-injection care instructions and a contact number to our office were provided if concerns arise regarding possible complications associated with the procedure are suspected.
--- NOTE | 2019-10-17 15:44 | PC.NURSE ---
Fentanyl and versed given by this RN all other meds scanned given by Dr Barraza. Patient was stable and transferred to [facility].
== END 2019-10-17 09:20 | disposition home or self-care (01) ==
PROVIDERS: PCP Internal Medicine; Referring Provider Internal Medicine; Visit Provider Physical Medicine & Rehabilitation
DX: M47.817 Spondylosis without myelopathy or radiculopathy, lumbosacral region (principal); M47.816 Spondylosis without myelopathy or radiculopathy, lumbar region; M54.5 Low back pain; M51.36 Other intervertebral disc degeneration, lumbar region; M51.37 Other intervertebral disc degeneration, lumbosacral region
CPT/HCPCS: 64493; 64494; 64495; 99152; J0702; J2250; J3010

== ENCOUNTER → 2019-11-13 08:31 | Outpatient (CLI) | payer MEDICARE, SELFPAY ==
--- NOTE | 2019-11-13 08:46 | DI.CT.S_ITS ---
PROCEDURE: CT CHEST WO CON INDICATIONS: follow up GGO seen in [facility] on August CT chest TECHNIQUE: Noncontrast 2.0-2.5 mm thick sections acquired from the pulmonary apices to the posterior costophrenic angles. 7 mm thick axial MIP and 5 mm coronal and sagittal reformats were then acquired. A low radiation dose technique was utilized. COMPARISON: [facility], CT, CT ABDOMEN WO/W CON, 07/06/2017, 13:51. [facility], CT, CT CHEST ABD PEL W CON, 08/16/2019, 10:12. FINDINGS: Image quality: Diagnostic, given the low radiation dose technique. Lungs and pleura: Compared to previous study, previously described 5 millimeter ground-glass like nodular focus in medial posterior left lower lobe is no longer present suggestive of resolved focal atelectasis. There is a benign appearing ill-defined 6 millimeter subpleural nodular density in lateral aspect of left lower lobe series 3, image 236 which is essentially unchanged from prior studies dating back to 2018. There is no new pulmonary nodule or mass. Mild scattered dependent atelectasis and scarring is seen in periphery of bilateral lung lara. No pleural effusion or pneumothorax. No acute airspace opacity. Mild reticular thickening in periphery of bilateral upper lobes are seen. Central and peripheral airway is patent and are normal in size. Mediastinum: Heart size is enlarged. No pericardial effusion. No mediastinal adenopathy by size criteria. Mild atherosclerotic calcifications are seen. Thoracic aorta and central pulmonary arteries are normal in size. Esophagus is normal in caliber. No hiatal hernia. Bones and chest wall: No suspicious bony lesions. No vertebral body compression fractures. No axillary or supraclavicular adenopathy by size criteria. Thyroid gland is within normal limits.. Abdomen: Hepatic steatosis is again seen. Gallbladder is surgically absent. IMPRESSION: 1. Previously noted ground-glass opacity nodule in medial left lower lobe near left lung base is no longer present consistent with resolved nodular atelectasis. Stable benign 6 millimeter subpleural nodule in lateral periphery of left lung base dating back to 2018 and is consistent with benign process. No new pulmonary nodule or mass is seen. Airway is patent. 2. Scattered atelectasis and scarring in periphery of bilateral lung lara with mild peripheral reticular thickening suggestive of mild chronic interstitial lung disease. 3. No mediastinal or hilar lymphadenopathy. Fleischner Society criteria for SOLID lung nodule followup. Nodule size (mm)Low-risk patientHigh-risk patient<6 (single or multiple)No routine followup.Optional CT at 12 months. 6-8 (single or multiple)CT at 6-12 months, then optional CT at 18-24 mo.CT at 6-12 months, then CT at 18-24 months. >8 (single)CT at 3 months, PET-CT, or biopsy. Same as for low-risk pts. >8 (multiple)CT at 3-6 months, then optional CT at 18-24 mo.CT at 3-6 months, then CT at 18-24 months. Fleischner Society criteria for SUB-SOLID lung nodule followup. Solitary pure ground-glass nodules<6 mm (ground glass or part solid)No followup needed. 6 mm or larger (ground glass)CT at 6-12 months to confirm persistence, then CT every 2 years until 5 years.6 mm or larger (part solid)CT at 3-6 months to confirm persistence, then annual CT until 5 years if unchanged and solid component remains <6 mm. Multiple sub-solid nodules<6 mmCT at 3-6 months, then CT consider at 2 & 4 years for high risk patients. [address] at 3-6 months. Subsequent management based on most suspicious lesions. Recommendations do not apply to lung cancer screening, patients with immunosuppression, or patients with known primary cancer. Dictated by: Chito Rodríguez M.D. on 11/13/2019 at 10:08 Approved by: Chito Rodríguez M.D. on 11/13/2019 at 10:13
== END ==
PROVIDERS: PCP Internal Medicine; Referring Provider Internal Medicine; Visit Provider Internal Medicine
DX: C7A.012 Malignant carcinoid tumor of the ileum (principal); K76.0 Fatty (change of) liver, not elsewhere classified; R91.1 Solitary pulmonary nodule; J98.11 Atelectasis; J98.4 Other disorders of lung; Z90.49 Acquired absence of other specified parts of digestive tract
CPT/HCPCS: 71250

== ENCOUNTER → 2020-01-08 13:08 | Outpatient (CLI) | payer MEDICARE, SELFPAY ==
--- NOTE | 2020-01-08 13:09 | DI.RAD.S_ITS ---
PROCEDURE: XR LUMBAR SPINE MIN 4V INDICATIONS: UPDATE IMAGING TECHNIQUE: 5 views of the lumbar spine were acquired. COMPARISON: [facility], CT, CT CHEST ABD PEL W CON, 08/16/2019, 10:12. [facility], CR, XR LUMBAR SPINE 2-3V, 07/06/2018, 15:34. FINDINGS: Bones: 5 nonrib-bearing vertebrae are present. Mild anterolisthesis of L4 on L5 measuring 5 mm. Mild degenerative change. No vertebral body compression fractures. No suspicious bony lesions. Soft tissues: Overlying bowel gas pattern is normal. No suspicious soft tissue calcifications. Abdominal clips. Oblique images: No pars defects. IMPRESSION: No compression fracture. Mild anterolisthesis of L4 on L5. Mild degenerative change. Dictated by: Luciano Moscoso M.D. on 01/08/2020 at 15:56 Approved by: Luciano Moscoso M.D. on 01/08/2020 at 16:00
== END ==
PROVIDERS: PCP Internal Medicine; Referring Provider Physical Medicine & Rehabilitation; Visit Provider Physical Medicine & Rehabilitation
DX: M47.27 Other spondylosis with radiculopathy, lumbosacral region (principal); M43.19 Spondylolisthesis, multiple sites in spine
CPT/HCPCS: 72110; 99214

== ENCOUNTER → 2020-02-11 08:20 | Outpatient (CLI) | payer MEDICARE, SELFPAY ==
[2020-02-11 10:03] LABS: Add Manual Diff / Slide Review NO; Basophils Absolute Auto 100 /uL (0-100); Basophils Percent Auto 0.7 % (0-2); Eosinophils Absolute Auto 200 /uL (0-450); Hematocrit 36.8 % (36-46); Hemoglobin 12.3 g/dL (12.0-16.0); Lymphocytes Absolute Auto 2600 /uL (1100-4500); Lymphocytes Percent Auto 36.5 % (25-40); Mean Corpuscular HGB Conc 33.3 % (30-36); Mean Corpuscular Hemoglobin 29.7 PG (26-34); Monocytes Absolute Auto 600 /uL (0-900); Monocytes Percent Auto 8.9 % (3-14); Neutrophils Absolute Auto 3700 /uL (1500-7000); Neutrophils Percent Auto 50.9 % (50-75); Platelet Count 238 X10^3/uL (150-400); Red Blood Cell Count 4.13 X10^6/uL (4.0-5.2); Red Cell Distribution Width 13.9 % (11.6-14.8); White Blood Cell Count 7.2 X10^3/uL (4.5-11.0)
[2020-02-11 10:07] LABS: Hemoglobin A1C% w Est Avg Glu 6.7 % (4.0-6.0)
[2020-02-11 10:29] LABS: BUN Creatinine Ratio 17.6 (6-22); Blood Urea Nitrogen 15 mg/dL (7-17); Calcium 9.3 mg/dL (8.4-10.2); Carbon Dioxide 29 mmol/L (22-32); Chloride 104 mmol/L (98-107); Cholesterol 177 mg/dL (140-199); Estimated Glomerular Filt Rate > 60.0 mL/min (>60); Glucose 111 mg/dL (80-110); HDL Cholesterol 62 mg/dL (40-60); HEMOLYSIS < 15 (0-50); LDL Cholesterol Calculated 77 mg/dL (<100); Potassium 4.8 mmol/L (3.4-5.1); Sodium 137 mmol/L (137-145); Triglycerides 191 mg/dL (35-150)
== END ==
PROVIDERS: PCP Internal Medicine; Referring Provider Internal Medicine; Visit Provider Internal Medicine
DX: E11.9 Type 2 diabetes mellitus without complications (principal); E78.5 Hyperlipidemia, unspecified
CPT/HCPCS: 36415; 80048; 80061; 83036; 85025

== ENCOUNTER → 2020-02-24 13:51 | Outpatient (CLI) | payer MEDICARE, SELFPAY ==
[2020-02-24 14:51] LABS: COVID19 -Nasal RAPID Negative (Negative)
== END ==
PROVIDERS: PCP Internal Medicine; Visit Provider Physical Medicine & Rehabilitation
DX: Z01.812 Encounter for preprocedural laboratory examination (principal); Z20.822 Contact with and (suspected) exposure to COVID-19
CPT/HCPCS: 87635; C9803

== ENCOUNTER 2020-02-25 12:14 | Outpatient (CLI) | payer MEDICARE, SELFPAY ==
[2020-02-25] VITALS (8 sets, daily range): BP systolic 125–146; BP diastolic 50–71; PULSE 71–93; RESP 13–16; TEMP 36.1; O2SAT 92–98
--- NOTE | 2020-02-25 12:18 | DI.RAD.S_ITS ---
PROCEDURE: PAIN L/SI FACET INJ/BLK 1STL INDICATIONS: SPONDYLOSIS COMPARISON: None. FINDINGS: Fluoroscopic spot filming was performed to verify placement of spinal needles at the L3, L4, L5 and S1 level(s), as labeled on the films. Appropriate location(s) of the needle tip(s) was confirmed by injection of iodinated contrast. IMPRESSION: Fluoroscopy for pain management. Dictated by: Cordell Chang M.D. on 02/25/2020 at 15:20 Approved by: Cordell Chang M.D. on 02/25/2020 at 15:20
[2020-02-25] MEDS: fentaNYL 100 MCG/2 ML INJ 50 MCG IV (13:22)
[2020-02-25] MEDS: MIDAZOLAM 5 MG/5 ML VIAL IV (13:22)
[2020-02-25] MEDS: BUPIVACAINE 0.5% (PF) VIAL 5 ML INJ (13:27)
[2020-02-25] MEDS: LIDOCAINE 1% 20 ML 10 ML INJ (13:27)
[2020-02-25] MEDS: IOPAMIDOL 15 ML VIAL 3 ML INJ (13:27)
--- NOTE | 2020-02-25 13:45 | PM.PROC.IR.1 ---
Date/Time/Diagnoses Date of procedure: 02/25/20 Time of procedure: 13:45 Pre-procedure diagnosis: 1. FACET ARTHROPATHY Post-procedure diagnosis: same Procedure Notes Procedure: 1. BILATERAL- L3, L4, L5 and S1 DIAGNOSTIC MB BLOCKS with LA Anesthetic Indications: Sanna is referred by Dr. Cho for treatment of Bilateral Axial LBP. Physician: Derrick Barraza Total Fluoroscopy time (seconds): 11 Total sedation minutes: 18 Complications: none Procedure in detail & Post-procedure care: DESCRIPTION OF PROCEDURE Fluoroscopically guided, contrast-controlled bilateral L3, L4, L5 and S1 medial branch blocks with 0.5cc of 0.5% Marcaine. Following review of allergy and review of potential side effects and complications, including, but not necessarily limited to, infection, allergic reaction, local tissue breakdown, nerve injury, paralysis, stroke and possible , the patient indicated that the patient understood and agreed to proceed. An informed consent document was signed by the patient, witnessed by a nurse, and placed in the patient's chart. After review of previous anaesthesic history and IV conscious sedation the patient was deemed safe to proceed with today's procedure with IV conscious sedation as ASA class II designation. Safety time-out was performed to confirm patient ID, procedure to be performed and site of procedure. IV sedation was accomplished with a combination of 2mg of Versed and 50mcg of Fentanyl was administered by the RN after DO order, titrated to patient comfort during the course of the procedure while the patient remained responsive to all verbal commands In the prone position, following sterile prep and drape of the lumbar region, the right L3, L4, L5 and S1 anatomical location of the medial branch of the dorsal ramus was identified fluoroscopically. Subsequently an anesthetic skin wheal using 1% lidocaine solution was initiated at each of the anatomical spots. Subsequently then a 22-gauge 3.5-inch spinal needle was atraumatically introduced and advanced under fluoroscopic guidance at each of the corresponding sites at the right L3, L4, L5 and S1 MB. After negative aspiration, 0.2cc of Isovue 200 was injected, confirming placement without vascular or intrathecal uptake. Subsequently then 0.5cc of 0.5% Marcaine solution was injected at each of the corresponding sites at the right L3, L4, L5 and S1 medial branch locations. The identical procedure was replicated on the left. The patient tolerated the procedure well without signs or symptoms of complications prior to transfer to the recovery area continued monitoring without incident. Post-procedure, the patient was monitored initiating provocative activities to measure the amount of relief from block of the facetogenic pain. The patient reported a VAS of 7 prior to the procedure and a post-procedure VAS of 1. It has been a pleasure to assist in the diagnostic and therapeutic care of your patient. POST OP INSTRUCTIONS The patient was provided with a Pain Log to complete over the next several hours and subsequent days prior to the patient's follow up with the ordering physician. If the patient has science center display builder relief to the solution applied, then they may be a candidate for medial branch rhizotomy. The patient is aware, was provided, once again, with a Pain Log and will follow up with the referring physician for review and clinical correlation
== END 2020-02-25 14:00 | disposition home or self-care (01) ==
LOC: RAD 12:17
PROVIDERS: PCP Internal Medicine; Referring Provider Internal Medicine; Visit Provider Physical Medicine & Rehabilitation
DX: M47.817 Spondylosis without myelopathy or radiculopathy, lumbosacral region (principal); M47.816 Spondylosis without myelopathy or radiculopathy, lumbar region
CPT/HCPCS: 64493; 64494; 64495; 99152; J2250; J3010

== ENCOUNTER → 2020-04-13 14:26 | Outpatient (CLI) | payer MEDICARE, SELFPAY ==
[2020-04-13 15:21] LABS: COVID19 -Nasal RAPID Negative (Negative)
== END ==
PROVIDERS: PCP Internal Medicine; Visit Provider Physical Medicine & Rehabilitation
DX: Z20.822 Contact with and (suspected) exposure to COVID-19 (principal)
CPT/HCPCS: 87635; C9803

== ENCOUNTER 2020-04-14 07:26 | Outpatient (CLI) | payer MEDICARE, SELFPAY ==
[2020-04-14] VITALS (13 sets, daily range): BP systolic 115–151; BP diastolic 54–75; PULSE 66–86; RESP 12–18; TEMP 36.1; O2SAT 94–99
--- NOTE | 2020-04-14 07:27 | DI.RAD.S_ITS ---
PROCEDURE: PAIN L/S MED/LAT N RFA BILAT INDICATIONS: SPONDYLOSIS COMPARISON: [facility], , PAIN L/SI FACET INJ/BLK 1STL, 02/25/2020, 13:26. FINDINGS: Fluoroscopic spot filming was performed to verify placement of spinal needles on both sides at the L3, L4, L5, and S1 levels, as labeled on the films. IMPRESSION: Intraprocedural examination within normal limits. Dictated by: Lasha Mason M.D. on 04/14/2020 at 8:43 Approved by: Lasha Mason M.D. on 04/14/2020 at 8:44
[2020-04-14] MEDS: fentaNYL 100 MCG/2 ML INJ 50 MCG IV (08:22)
[2020-04-14] MEDS: MIDAZOLAM 5 MG/5 ML VIAL IV (08:44)
[2020-04-14] MEDS: LIDOCAINE 1% 20 ML INJ (08:52)
[2020-04-14] MEDS: BUPIVACAINE 0.5% (PF) VIAL 5 ML INJ (08:53)
--- NOTE | 2020-04-14 09:15 | P.PCN_ITS ---
Date/Time/Diagnoses Date of procedure: 04/14/20 Time of procedure: 09:15 Pre-procedure diagnosis: 1. RECALCITRANT FACET ARTHROPATHY Post-procedure diagnosis: same Procedure Notes Procedure: 1. BILATERAL L3, L4 AND L5 MEDIAL BRANCH RADIOFREQUENCY NEUROTOMY AND S1 DORSAL RAMUS BRANCH RADIOFREQUENCY NEUROTOMY Indications: Sanna is referred by Dr. Cho for treatment of facet arthropathy. Physician: Derrick Barraza Total Fluoroscopy time (seconds): 20 Total sedation minutes: 38 Complications: none Procedure in detail & Post-procedure care: DESCRIPTION OF PROCEDURE Bilateral L3, L4 and L5 medial branch radiofrequency neurotomy and bilateral S1 dorsal ramus radiofrequency neurotomy under fluoroscopy with conscious sedation. The patient is well known to this clinic having undergone previous facet injecti ons with good but temporary relief. The patient has experienced appropriate, concordant relief with previous facet and median branch blocks but the patient's pain has been recalcitrant to further conservative measures. Therefore, based upon the patient's relief and persistent symptoms, the patient is considered an appropriate candidate for facet rhizotomy. All of the patient's questions regarding the risks versus benefits of the procedure, including, but not limited to, bleeding, infection, temporary as well as lasting nerve injury, paralysis, stroke, and , as well treatment alternatives were answered to satisfaction. After obtaining informed consent, denial of pertinent drug allergies, as well as being made aware of the potential risks of bleeding, infection, spinal cord trauma, paralysis, temporary and permanent nerve damage, seizure, stroke, and possible , the patient was brought to the fluoroscopy suite and positioned prone on the fluoroscopy table. The lumbar region was prepped with Betadine and covered with a fenestrated drape in the usual sterile fashion. Appropriate monitors applied including pulse oximeter, pulse, and blood pressure for regular monitoring throughout the procedure. After review of previous anaesthesic history and IV conscious sedation the patient was deemed safe to proceed with today's procedure with IV conscious sedation as ASA class II designation. Safety time-out was performed to confirm patient ID, procedure to be performed and site of procedure. IV sedation was accomplished with a combination of 4mg of Versed and 50mcg of Fentanyl administered by the RN after DO order, titrated to patient comfort during the course of the procedure while the patient remained responsive to all verbal commands. After local infiltration using 1% lidocaine, under fluoroscopic guidance, a 10- cm RF insulated needle with a 10-mm active tip was positioned parallel to the junction of the right sacral ala and the superior articulating process where the S1 dorsal ramus resides. Needle placement was confirmed with motor stimulation of .5v on the right which produced local stimulation without radicular component. The stimulation was then increased to 2v with, once again, only local multifidus stimulation without radicular component. The needle was then removed and the identical procedure was performed along the length of the right L5 medial branch with motor stimulation at .7v on the right. The identical procedure was once again performed along the length of the right L4 medial branch with motor stimulation of .5v on the right. The identical procedure was once again performed along the length of the right L3 medial branch with motor stimulation of .5v on the right. The medial branches were then anesthetised with 0.5% Marcaine. This was then followed by two discreet lesions performed at 80 degrees Celsius for 90 seconds each. The identical procedure was repeated on the left. The patient tolerated the procedure well without signs or symptoms of complications prior to transfer to the recovery area continued monitoring without incident. The patient was then transferred to the recovery area where they were observed for an appropriate period of time after the injection. The patient reported a VAS score of 7 prior to the procedure and a post-procedure VAS of 0. POST OP INSTRUCTIONS The patient was provided a Pain Log to continue to record the patient's response to the target-specific procedure prior to the patient's follow-up visit with the referring physician. Additionally, specific post-injection care instructions and a contact number to our office were provided if concerns arise regarding possible complications associated with the procedure are suspected.
== END 2020-04-14 09:32 | disposition home or self-care (01) ==
LOC: RAD 07:27
PROVIDERS: PCP Internal Medicine; Referring Provider Internal Medicine; Visit Provider Physical Medicine & Rehabilitation
DX: M47.817 Spondylosis without myelopathy or radiculopathy, lumbosacral region (principal); M47.816 Spondylosis without myelopathy or radiculopathy, lumbar region
CPT/HCPCS: 64635; 64636; 99152; 99153; J2250; J3010

== ENCOUNTER → 2020-06-08 14:36 | Outpatient (CLI) | payer MEDICARE, SELFPAY ==
[2020-06-08 15:23] LABS: COVID19 -Nasal RAPID Negative (Negative)
== END ==
PROVIDERS: PCP Internal Medicine; Visit Provider Physical Medicine & Rehabilitation
DX: Z20.822 Contact with and (suspected) exposure to COVID-19 (principal)
CPT/HCPCS: 87635; C9803

== ENCOUNTER 2020-06-09 08:07 | Outpatient (CLI) | payer MEDICARE, SELFPAY ==
[2020-06-09] VITALS (8 sets, daily range): BP systolic 129–171; BP diastolic 59–70; PULSE 68–76; RESP 12–20; TEMP 36.1; O2SAT 95–100
--- NOTE | 2020-06-09 08:08 | DI.RAD.S_ITS ---
PROCEDURE: PAIN L/S TRANSFORAM INJECT SWAPNIL COMPARISON: None. INDICATIONS: SPONDYLOSIS FINDINGS: Needle tip localization at the L4-L5 neural foramen bilaterally for transforaminal epidural steroid injection. IMPRESSION: Normal tip positioning of the injection needle bilaterally for L4-L5 steroid injection. Dictated by: Wyatt Roche M.D. on 06/09/2020 at 11:40 Approved by: Wyatt Roche M.D. on 06/09/2020 at 11:41
[2020-06-09] MEDS: fentaNYL 100 MCG/2 ML INJ 50 MCG IV (09:11)
[2020-06-09] MEDS: MIDAZOLAM 5 MG/5 ML VIAL IV (09:11)
[2020-06-09] MEDS: IOPAMIDOL 15 ML VIAL 3 ML INJ (09:17)
[2020-06-09] MEDS: DEXAMETHASONE 10 MG/ML VIAL 20 MG INJ (09:17)
[2020-06-09] MEDS: BETAMETHASONE 30 MG/5 ML MDV 6 MG INJ (09:18)
[2020-06-09] MEDS: BUPIVACAINE 0.25% (PF) VIAL 2 ML INJ (09:18)
[2020-06-09] MEDS: LIDOCAINE 1% 20 ML 10 ML INJ (09:20)
--- NOTE | 2020-06-09 09:28 | P.PCN_ITS ---
Date/Time/Diagnoses Date of procedure: 06/09/20 Time of procedure: 09:28 Pre-procedure diagnosis: 1. FORAMINAL STENOSIS WITH LE SYMPTOMS Post-procedure diagnosis: same Procedure Notes Procedure: 1. FLUOROSCOPICALLY GUIDED CONTRAST CONTROLLED TRANSFORAMINAL EPIDURAL STEROID INJECTION - BILATERAL L4/5 TFESI Indications: Sanna is referred by Dr. Cho for treatment of Foraminal Stenosis with bilateral LE Symptoms Physician: Derrick Barraza Total Fluoroscopy time (seconds): 15 Total sedation minutes: 15 Complications: none Procedure in detail & Post-procedure care: FINDINGS Foraminal Nerve Root Compression secondary to disc disease and facet hypertrophy DESCRIPTION OF PROCEDURE Following review of allergy and review of potential side effects and complications, including, but not necessarily limited to, infection, allergic reaction, local tissue breakdown, stroke, temporary or permanent nerve injury, paralysis, and possible , the patient indicated that the patient understood and agreed to proceed. An informed consent document was signed by the patient, witnessed by a nurse, and placed in the patient's chart. Additionally, other treatment options including medications, modalities, and physical therapy were reviewed with the patient. After review of previous anaesthesic history and IV conscious sedation the patient was deemed safe to proceed with today?s procedure with IV conscious sedation as ASA class II designation. Safety time-out was performed to confirm patient ID, procedure to be performed and site of procedure. IV sedation was accomplished with a combination of 2mg of Versed and 50mcg of Fentanyl was administered by the RN after DO order, titrated to patient comfort during the course of the procedure while the patient remained responsive to all verbal commands In the prone position following sterile prep and drape of the lumbar region, the right L4/5 posterior neuroforamen was identified fluoroscopically. The skin was anesthetized via a 25-gauge 1.5-inch needle with 1% lidocaine solution. At this point, a 25-gauge 3.5-inch spinal needle was atraumatically introduced and advanced under fluoroscopic guidance through the posterior right L4/5 neuroforamen to approximately the anterior aspect of the canal. Depth was confirmed on lateral view. Following negative aspiration, injection of approximately 1.5cc of Isovue 200 under live fluoroscopy in the AP view confirmed excellent flow along the nerve root, into the epidural space without vascular or intrathecal uptake observed Radiological data, including multiple fluoroscopic views of the lumbosacral spine, reveal a spinal needle at the right L4/5 posterior neuroforamen. Subsequent views show flow of contrast material flowing superiorly and inferiorly along the nerve root confirming epidural flow. Subsequently, a test dose of 1.5cc of 1% lidocaine solution was administered and patient was observed for two minutes for signs or symptoms of complications, including abdominal pain, shortness of breath, bilateral upper or lower extremity weakness, nausea and vomiting, prior to steroid injection. At this point, a total of 3cc or 20mg of dexamethasone and 6mg betamethasone was injected without incident. Attention was then refocused to the left L4/5 level where the identical procedure was replicated. The procedure tolerated the procedure well without signs or symptoms of co mplications prior to transfer to the recovery area continued monitoring without incident. The patient was then transferred to the recovery area where they were observed for an appropriate time after the injection. The patient reported a VAS score of 7 prior to the procedure and a post-procedure VAS of 0. POST OP INSTRUCTIONS The patient was provided a Pain Log to continue to record their response to the target-specific procedure prior to follow-up visit with their referring physician. Additionally, specific post-injection care instructions and a contact number to our office were provided if concerns arise regarding possible complications associated with the procedure are suspected.
== END 2020-06-09 09:50 | disposition home or self-care (01) ==
LOC: RAD 08:08
PROVIDERS: PCP Internal Medicine; Referring Provider Internal Medicine; Visit Provider Physical Medicine & Rehabilitation
DX: M48.061 Spinal stenosis, lumbar region without neurogenic claudication (principal); M51.16 Intervertebral disc disorders with radiculopathy, lumbar region
CPT/HCPCS: 64483; 99152; J0702; J1100; J2250; J3010

== ENCOUNTER → 2020-06-24 19:30 | Outpatient (CLI) | payer MEDICARE, SELFPAY ==
--- NOTE | 2020-06-24 | DI.MRI.S_ITS ---
PROCEDURE: MR LUMBAR SPINE WO CON INDICATIONS: Spinal stenosis, lumbar region with neurogenic cla TECHNIQUE: Noncontrast sagittal T1 spin echo and T2 fast echo, sagittal STIR, axial T1 and T2 fast spin echo through the lumbar spine. In cases with scoliosis, additional coronal T2 fast spin echo may be performed. COMPARISON: [facility], CR, XR LUMBAR SPINE MIN 4V, 01/08/2020, 13:21. FINDINGS: Image quality: Excellent. Alignment and Curvature: There is mild L3-L4 and L4-L5 anterolisthesis secondary to facet hypertrophy. Bone Marrow: Marrow is of normal overall signal. No acute vertebral body compression fractures. Spinal Cord: Conus medullaris terminates at the L1 level. Visualized cord demonstrates normal signal and size. Paraspinous Soft Tissues: No paravertebral masses. T12-L1: Loss of disc signal. Mild, diffuse disc bulge. No central stenosis. No neural foraminal narrowing. No neural compression. L1-L2: Loss of disc signal. Mild, diffuse disc bulge. Mild narrowing of the central canal. Mild bilateral neural foraminal narrowing. No neural compression. Fissure noted in the posterior annulus. L2-L3: Loss of disc signal. Mild, diffuse disc bulge. Mild bilateral facet hypertrophy. Mild narrowing the central canal. Mild bilateral neural foraminal narrowing. No neural compression. L3-L4: Loss of disc signal and slight loss of disc height. Mild, diffuse disc bulge. Moderate bilateral facet hypertrophy. Mild narrowing of the central canal. Mild right moderate left neural foraminal narrowing. No neural compression. L4-L5: Loss of disc signal. Mild, diffuse disc bulge. Severe bilateral facet hypertrophy. Severe ligamentum flavum hypertrophy. Severe narrowing of the central canal with compression of the nerve roots of the cauda equina. Severe right and moderate left neural foraminal narrowing with compression of the exiting right L4 nerve root. L5-S1: Loss of disc signal. Mild, diffuse disc bulge. Mild bilateral facet hypertrophy. No central stenosis. Severe bilateral neural foraminal narrowing with slight compression of the exiting L5 nerve roots. IMPRESSION: 1. Grade 1 L3-L4 and L4-L5 degenerative spondylolisthesis. 2. Multilevel degenerative disc disease. 3. Severe L4-L5 central canal narrowing with compression of the nerve roots of the cauda equina. 4. Severe right L4-L5 neural foraminal narrowing with compression of the exiting right L4 nerve root. Severe bilateral L5-S1 neural foraminal narrowing with slight compression of the exiting bilateral L5 nerve roots. Dictated by: Pam Weathers MD, PhD on 06/25/2020 at 8:58 Approved by: Pam Weathers MD, PhD on 06/25/2020 at 9:55
== END ==
PROVIDERS: PCP Internal Medicine; Referring Provider Orthopaedic Surgery Orthopaedic Surgery of the Spine; Visit Provider Orthopaedic Surgery Orthopaedic Surgery of the Spine
DX: M48.062 Spinal stenosis, lumbar region with neurogenic claudication (principal); M48.07 Spinal stenosis, lumbosacral region; M51.36 Other intervertebral disc degeneration, lumbar region; M51.37 Other intervertebral disc degeneration, lumbosacral region; M48.061 Spinal stenosis, lumbar region without neurogenic claudication; M43.16 Spondylolisthesis, lumbar region
CPT/HCPCS: 72148

== ENCOUNTER → 2020-07-29 08:37 | Outpatient (CLI) | payer MEDICARE, SELFPAY ==
--- NOTE | 2020-07-29 | DI.MG.S_ITS ---
BILATERAL DIGITAL SCREENING MAMMOGRAM 3D/2D WITH CAD: 07/29/2020 CLINICAL: Routine screening. Family history of breast cancer. Comparison is made to exams dated: 07/29/2019 mammogram, 07/27/2018 mammogram, and 11/15/2016 mammogram - [facility]. There are scattered fibroglandular elements in both breasts. Current study was also evaluated with a Computer Aided Detection (CAD) system. There is a biopsy clip in the right breast. There also are biopsy clips in the left breast. No significant masses, calcifications, or other findings are seen in either breast. There has been no significant interval change. IMPRESSION: NEGATIVE There is no mammographic evidence of malignancy. A 1 year screening mammogram is recommended. This exam was interpreted at Station ID: [id number]. NOTE: For mammograms, a report in lay terms will be sent to the patient. Approximately 15% of breast malignancies will not be visualized mammographically. In the management of a palpable breast mass, a negative mammogram must not discourage biopsy of a clinically suspicious lesion. Electronically Signed By: Carlos cruz/nicole:07/29/2020 11:30:58 letter sent: Normal Exam ACR BI-RADS Category 1: Negative [id number]
[2020-07-29 09:14] LABS: Add Manual Diff / Slide Review NO; Basophils Absolute Auto 100 /uL (0-100); Basophils Percent Auto 0.8 % (0-2); Eosinophils Absolute Auto 200 /uL (0-450); Eosinophils Percent Auto 2.7 % (2-4); Hematocrit 39.4 % (36-46); Hemoglobin 12.8 g/dL (12.0-16.0); Lymphocytes Absolute Auto 2600 /uL (1100-4500); Lymphocytes Percent Auto 32.4 % (25-40); Mean Corpuscular HGB Conc 32.5 % (30-36); Mean Corpuscular Hemoglobin 29.1 PG (26-34); Mean Corpuscular Volume 89.6 fL (80-100); Monocytes Absolute Auto 800 /uL (0-900); Monocytes Percent Auto 9.6 % (3-14); Neutrophils Absolute Auto 4300 /uL (1500-7000); Neutrophils Percent Auto 54.5 % (50-75); Platelet Count 282 X10^3/uL (150-400); Red Cell Distribution Width 14.2 % (11.6-14.8); White Blood Cell Count 7.9 X10^3/uL (4.5-11.0)
[2020-07-29 09:25] LABS: Alanine Aminotransferase 54 IU/L (<35); Albumin 4.6 g/dL (3.5-5.0); Albumin Globulin Ratio 1.5 (1.0-2.8); Alkaline Phosphatase 67 U/L (38-126); Aspartate Aminotransferase 51 IU/L (14-36); BUN Creatinine Ratio 21.4 (6-22); Bilirubin Total 0.6 mg/dL (0.2-1.3); Blood Urea Nitrogen 18 mg/dL (7-17); Calcium 9.8 mg/dL (8.4-10.2); Carbon Dioxide 23 mmol/L (22-32); Chloride 103 mmol/L (98-107); Estimated Glomerular Filt Rate > 60.0 mL/min (>60); Glucose 144 mg/dL (80-110); HEMOLYSIS < 15 (0-50); Sodium 137 mmol/L (137-145); Total Protein 7.6 g/dL (6.3-8.2)
--- NOTE | 2020-07-29 09:40 | DI.CT.S_ITS ---
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 Coronal and sagittal reformats were performed. For radiation dose reduction, the following was used: automated exposure control, adjustment of mA and/or kV according to patient size. COMPARISON:[facility], CT, CT CHEST WO CON, 11/13/2019, 8:47. [facility], CT, CT CHEST ABD PEL W CON, 08/16/2019, 10:12. [facility], CT, CT CHEST ABD PEL W CON, 08/27/2018, 12:02. FINDINGS: Image quality: Excellent. CHEST: Lower Neck: No enlarged lymph nodes. Thyroid: Normal where well visualized. Axillae: No enlarged lymph nodes. Chest Wall: Unremarkable. Lungs and Airways: No consolidation or suspicious nodules. Pleura: No pneumothorax or pleural effusions. Heart: Heart size is normal. No pericardial effusion. Thoracic Vessels: The aorta and pulmonary arteries demonstrate normal size. Mediastinum and Freda: No enlarged lymph nodes. Esophagus: No wall thickening. No hiatal hernia. ABDOMEN: Liver: Unremarkable. Gallbladder: Surgically resected Biliary ducts: Unremarkable. Pancreas: Unremarkable. Spleen: Unremarkable. Adrenal Glands: Unremarkable. Kidneys and Ureters: Unremarkable. Stomach and Bowel: Stomach, small bowel loops, and colon are unremarkable. Peritoneum: No abnormal intraperitoneal fluid. No free air. Ventral Wall: No hernia. Abdominal Nodes: No retroperitoneal or mesenteric adenopathy by size criteria. Vessels: Aorta and inferior vena cava are normal in size. PELVIS: Pelvic Organs: Unremarkable. Bladder: Unremarkable. Pelvic Nodes: No enlarged lymph nodes. Miscellaneous: No inguinal hernias are seen. Bones: Unremarkable. IMPRESSION: 1. Resolution of a small nodule at the medial left lung base, no evidence of pulmonary metastatic disease. 2. No hepatic metastatic disease. Prior cholecystectomy. No bone lesion found. Dictated by: Wyatt Roche M.D. on 07/29/2020 at 12:39 Approved by: Wyatt Roche M.D. on 07/29/2020 at 12:44
[2020-07-29 10:38] LABS: Hemoglobin A1C% w Est Avg Glu 6.5 % (4.0-6.0)
[2020-07-29 16:00] LABS: Creatinine Urine Random 74.6 mg/dL
[2020-07-29 16:05] LABS: Microalbumi Creatinin Ratio Ur 20.1 ug/mg CR (<30); Microalbumin Urine Random 1.5 mg/dL (0-1.6)
[2020-07-31 12:45] LABS: Chromogranin A, Serum 97.8 ng/mL (0.0-101.8)
[2020-08-06 14:09] LABS: 5-HIAA, UR 24HR 18.1 mg/24 hr (0.0-14.9); 5-HIAA, Urine 25.9 mg/L (Undefined)
== END ==
PROVIDERS: Orthopaedic Surgery Orthopaedic Surgery of the Spine; PCP Internal Medicine; Referring Provider Internal Medicine; Visit Provider Internal Medicine
DX: Z01.818 Encounter for other preprocedural examination (principal); Z01.812 Encounter for preprocedural laboratory examination; C7A.019 Malignant carcinoid tumor of the small intestine, unspecified portion; C78.7 Secondary malignant neoplasm of liver and intrahepatic bile duct; Z12.31 Encounter for screening mammogram for malignant neoplasm of breast; Z80.3 Family history of malignant neoplasm of breast; R73.9 Hyperglycemia, unspecified; Z90.49 Acquired absence of other specified parts of digestive tract
CPT/HCPCS: 36415; 71260; 74177; 77063; 77067; 80053; 82043; 82570; 83036; 83497; 85025; 86316; 93005; Q9967

== ENCOUNTER → 2020-08-26 09:22 | Outpatient (CLI) | payer MEDICARE, SELFPAY ==
[2020-08-26 11:52] LABS: COVID19 -Nasal RAPID Negative (Negative)
== END ==
PROVIDERS: PCP Internal Medicine; Visit Provider Physician Assistant
DX: Z01.812 Encounter for preprocedural laboratory examination (principal); Z20.822 Contact with and (suspected) exposure to COVID-19
CPT/HCPCS: 87635

== ENCOUNTER 2020-08-28 06:29 | Inpatient (IN) | payer MEDICARE, SELFPAY ==
[2020-08-20 08:54] VITALS: BMI 32.5
[2020-08-28] VITALS (11 sets, daily range): BP systolic 141–180; BP diastolic 53–85; PULSE 68–115; RESP 12–18; TEMP 36.3–36.7; O2SAT 92–99; BMI 34.3
[2020-08-28] MEDS: LACTATED RINGERS 1,000 ML 42 ML IV ×3 (07:20→12:12)
--- NOTE | 2020-08-28 07:27 | PM.PREOP ---
Pre-operative Note COVID-19 COVID-19 status: Negative Result date/Date tested (Pos, Neg/Pending): 08/26/20 Interval Note History & Physical reviewed/Exam performed by Physician: Yes Changes to H&P: No
[2020-08-28] MEDS: CEFAZOLIN 1 GM VIAL 2 GM IV ×3 (08:05→20:14)
--- NOTE | 2020-08-28 08:26 | SUR.OPER ---
Prone on spine table, head in foam head support, padded chest and pelvic supports, gel pad at knees, lower legs supported by pillows; nipples, genitalia and toes free of pressure, arms secured on foam padded arm boards at <90 degrees abduction. Tape over blanket at thigh secured to table.
[2020-08-28] MEDS: SCOPOLAMINE 1 PATCH TOP (08:45)
[2020-08-28] MEDS: BUPIVACAINE 0.25% W/ EPI 30 ML VIAL INJ (09:33)
[2020-08-28] MEDS: BUPIVACAINE LIPOSOME 266 MG/20 ML VIAL INJ (09:33)
--- NOTE | 2020-08-28 12:30 | DI.RAD.S_ITS ---
PROCEDURE: XR LUMBAR SPINE 2-3V INDICATIONS: L3-4, L4-5, L5-S1 TLIF TECHNIQUE: 3 views of the lumbar spine were acquired. COMPARISON: [facility], MR, MR LUMBAR SPINE WO CON, 10/25/2018, 8:30. [facility], CR, XR LUMBAR SPINE MIN 4V, 01/08/2020, 13:21. FINDINGS: Intraoperative fluoroscopic images demonstrate discectomy and interbody fixation of L3-4, L4-5, and L5-S1. Hardware appears intact and well-positioned. IMPRESSION: Postoperative changes of discectomy and interbody fixation as above. Dictated by: Jonh Quintanilla M.D. on 08/28/2020 at 14:10 Approved by: Jonh Quintanilla M.D. on 08/28/2020 at 14:12
--- NOTE | 2020-08-28 12:56 | P.OP_ITS ---
Operative Date/Time/Diagnoses Date of procedure: 08/28/20 Time of procedure: 07:54 Pre-op diagnosis: 1. L3-4, L4-5, L5-S1 spondylolisthesis 2. L3-4, L4-5, L5-S1 spinal stenosis 3. L3-S1 spondylosis with radiculopathy Post-op diagnosis: same Procedure & Clinicians Procedure: 1. L3-4, L4-5, L5-S1 Postero-lateral and posterior interbody fusion 2. L3-4, L4-5, L5-S1 interbody cage placement. 3. L3-4, L4-5, L5-S1 decompressive laminectomy with bilateral facetecomies 4. L3-4, L4-5, L5-S1 Posterior segmental instrumentation 5. Slayden of bone marrow from iliac crest 6. Utilization of microsurgical technique and operating microscope Same procedure as scheduled: Yes Indications: Patient has been having chronic back pain and worsening lumbar ra diculopathy. Patient failed multiple conservative management with worsening pain weakness and numbness in her lower extremity. Patient has been having difficulty performing activity of daily living. After discussing risks benefits of treatment options, patient elected proceed with surgery. Surgeon: Brianna Mills [employer]anc[employer] Cutting Control Clerk: Da Villa Click Yes if Unassisted: No Anesthesia Type: General Operative Notes Closure Type: primary Specimen(s): none sent Prosthetic devices, grafts, tissues, transplants, or devices: Globus revolve screws, Rise cages Applied: catheter Estimated Blood Loss (mL): 100 Blood products transfused: none Procedure in detail: Patient was seen in the preoperative area. Risks and benefits of the surgery was discussed with the patient. Informed consent was obtained from the patient and placed in the chart. Surgical site was marked. Patient was taken to the operative room. General anesthesia was administered. Prophylactic antibiotic was given to the patient less than 30 min before the incision was made. Patient was placed into a prone position on the Efrain table. Patient's back was then prepped and draped in the sterile fashion. Time- out was performed at this time. Using AP and lateral C-arm imaging the interval between L3-S1 was identified and marked on patient's back. A 3 inch incision 2 in from midline was made on the right side first. The fascia was incised in line with skin incision. Globus MARS retractors was placed inside the incision and docked onto the L3, L4 and L5 lamina. Using microsurgical technique and operating microscope, a L3, L4 and L5 laminectomy and L3-4, L4-5 L5-S1 facetectomy was performed using a Kerrison rongeur. Patient was found have severe neural foramen stenosis and central stenosis at L3 levels. The stenosis was fully decompressed after the laminectomy and facetectomy was completed. The facetectomy and laminectomy render the L3-4 L4-5 L5-S1 further unstable and require fusion procedure at the same time. The disc space at L3-4, L4-5, L5-S1 was identified. And a total diskectomy was performed at L3-4, L4-5, L5-S1 level. The endplates were decorticated using a rasp and shaver. The total diskectomy and decortication was performed at L3-4, L4-5, L5-S1 level in order to to accomplish a L3-4, L4-5, L5-S1 fusion. The local bone from the laminectomy and facetectomy was saved for local bone grafting. After the total diskectomy and decortication was completed, Trifecta bone graft material was combined with local bone that was harvested earlier. At this time, a separate skin is incision was made over the iliac crest. A Jamshidi needle was inserted into the iliac crest through a separate skin incision. 5 cc of bone marrow aspiration was obtained through the separate skin incision using a Jamshidi needle from the iliac crest. The bone marrow aspiration was combined with local bone and the Trifecta bone grafting material. The bone grafting material was placed into the L3-4, L4-5, L5-S1 interbody space along with three cages, one expandable cage at each level. The cages were expanded to their maximum height using the torque limiting screwdriver. At this time a mirror image incision was made on the left side. The fascia was incised in line with the skin incision. Globus MARS retractor was inserted and docked onto the L3-4, L4-5, L5-S1 posterolateral gutter. Using the power drill, posterior-lateral decortication was performed at L3-4, L4-5, L5-S1 level until bleeding cortical bone was identified. The remaining bone grafting material was placed into the L3-4, L4-5 L5-S1 posterior lateral gutter he order to accomplish posterolateral fusion at the L3-4, L4-5 L5-S1 levels. Using the double C-arm technique, pedicle screws were placed into the L3, L4, L5, S1 pedicles bilaterally. This was done by placing the Jamshidi needle into the pedicles, then placing the guidewires over the Jamshidi needle, and finally placing the cannulated screws over the guidewires bilaterally. After the pedicle screws were placed, 2 titanium rods was locked into the heads of the pedicle screws using locking caps and torque limiting screwdriver. Total 8 pedicles screws were placed. After all the hardware was placed, and confirmed with AP and lateral C-arm imaging, the wound was then irrigated with sterile normal saline and packed with Ray-Claude gauze for 3 min to accomplish hemostasis. After the gauze was removed the deep fascia was closed with #1 Vicryl suture. The subcutaneous layer was closed with 2-0 Vicryl. The skin was closed with skin tejal. Patient tolerated the procedure well. There were no complications. Complications: none Post-operative Condition: stable Disposition: PACU Plan for aftercare: Admit to inpatient hospital
[2020-08-28] MEDS: fentaNYL 100 MCG/2 ML INJ IV (13:43)
[2020-08-28] MEDS: SODIUM CHLORIDE 0.9% 1,000 ML 100 ML IV (14:49)
--- NOTE | 2020-08-28 14:55 | PC.NURSE ---
Recieved from PACU, sleepy, O2 on at 3L NC with sats 94%. PACU nurse reports pt sats dropped after receiving some fentynal and then O2 was applied. Will let pt wake up a little more before trying off O2. Denies any sob, rr 14-16. Reports mild pain, says she doesn't need any medication for pain right now. Instructed on pain med regime, to call staff once she starts to notice the pain increasing. Denies any nausea. Dressing to low back is c/d/i.
--- NOTE | 2020-08-28 15:30 | PT.IIE ---
Current Diagnoses Spondylolisthesis, lumbar region (08/28/20) Spinal stenosis, lumbar region with neurogenic claudication (08/28/20) Other specified postprocedural states (08/28/20) Surgery Performed Operation Date: 08/28/20 07:45 Actual Procedures p L3-4, L4-5, L5-S1 TLIF with posterior instrumentation - Brianna Mills MD Medical History (Last Updated 08/20/20 @ 09:52 by Linda Oglesby RN) Arthritis Chronic pain Diabetes Diarrhea Facet arthropathy, lumbosacral Foraminal stenosis of lumbar region History of meniscal tear (~2008) History of Mohs micrographic surgery for skin cancer (12/2017) Hyperlipidemia Hypertension Joint pain Liver metastasis Melanoma of right upper arm (~1980) Pilonidal cyst Rattlesnake bite (~1983) Spondylolisthesis at L4-L5 level Physical Therapy Inpatient Evaluation/Re-Eval M1 PT/OT-IP Prior Functional Status Start: 08/28/20 16:37 Freq: NEEDED Status: Active Protocol: Document 08/28/20 15:30 AB (Rec: 08/28/20 16:51 AB [id number]) Medical Review Prior Functional Status Medical History Reviewed Yes Communication able to make needs known Mobility and Gait pt stated that she is independent with all mobilities and ambulation without AD Social History Household Members spouse Living Arrangements House Number of Floors (Floors) Two Floors Number of Stairs To Enter/Railing? pt stays on main level of the house has 2 steps without rails to enter Home Environment High Toilet,Tub/Shower Home Equipment Hand Held Shower,Grab Bars Near Toilet,Grab Bars In Shower Additional Social History Comment pt has a standard walker and a tripod cane M2 PT-IP Current Condition Start: 08/28/20 16:37 Freq: NEEDED Status: Active Protocol: Document 08/28/20 15:30 AB (Rec: 08/28/20 16:51 AB [id number]) Physical Therapy Current Condition Current Condition Evaluation Date 08/28/20 Treatment Diagnosis s/p L3-4, L4-5, L5S1 fusion/ lami; difficulty in walking Onset Date 08/28/20 Precautions Lumbar Precautions Log Roll,No Twisting,Limit Bending,Lifting Restriction of 10 lbs,Gait Belt above Incisional Area M3 PT-IP Subjective Start: 08/28/20 16:37 Freq: NEEDED Status: Active Protocol: Document 08/28/20 15:30 AB (Rec: 08/28/20 16:51 AB [id number]) Subjective Physical Therapy Visit Type Type Initial Evaluation Visit Start Time 15:30 Visit Stop Time 16:15 Total Visit Minutes 45 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 Physical Therapy Visit Comments Patient Comments pt is agreeable to do PT; pt is drowsy but able to follow commands but requires increase cues; spouse in room with pt Therapy Pain Assessment Pain When Pain Assessed At Rest Pain Present Pain Present Pain Reported Location Back Intensity 8 Scale Used Numeric (0 - 10) Pain Management Techniques Distraction,Modification of Treatment,Re-positioning, Timing of Activity with Medications M4 PT-IP Mobility and Gait Start: 08/28/20 16:37 Freq: NEEDED Status: Active Protocol: Document 08/28/20 15:30 AB (Rec: 08/28/20 16:51 AB [id number]) PT-Bed Mobility Assessment Rolling Type of Rolling Log Rolling Level of Assist Maximal Assistance Supine to Sit Supine to Sit Maximum Assistance,Bedrails Sit to Supine Sit to Supine Maximum Assistance,Bedrails Scooting Scooting to Edge of Bed Maximum Assistance PT-Transfer Assessment Sit to and From Stand Sit to and from Stand Maximum Assistance,1 Person Assistance,Use of Upper Extremities Equipment Transfer Assistive Device Gait Belt,Front Wheeled Walker Comments Mobility Comments educated pt on back precautions and log roll bed mobility. BP: 133/78. completed log roll supine to sit max A and cues. pt is drowsy and dozing off in between tasks requiring constant cues during PT session. pt is able to to sit on EOB CGA to min A. pt without any c/o dizziness/ nausea. nurse and NAC in room . pt completed sit to stand max A and max cues. increase posterior trunk lean with initial standing and cued for steadiness and balance. able to take side steps towards HOB and also attempted forward stepping ~ 2-3 steps but instructed to step back to the bed again as pt is drowsy. pt required max A with taking steps. completed log roll sit to supine max A and max cues. positioned pt in bed. call light and table placed within reach. Left pt with nurse in room. Gait Assessment Gait Gait Assistance Required: Maximum Assistance Assistive Devices Assistive Device Gait Belt,Front Wheeled Walker Factors Limiting Gait Function Factors Limiting Gait Function Decreased Activity Tolerance, Decreased Sensation,Decreased Strength,Difficulty Following Directions,Limited Range of Motion,Pain,Poor Balance,Poor Safety Awareness Comments Gait Comments able to take steps towards HOB . PT-Balance Assessment Sitting Balance and Reactions Static Sitting Balance Ability Good Dynamic Sitting Balance Ability Fair Standing Balance and Reactions Static Standing Balance Ability Poor Dynamic Standing Balance Ability Poor Device Used FWW M5 PT-IP Objective Assessments Start: 08/28/20 16:37 Freq: NEEDED Status: Active Protocol: Document 08/28/20 15:30 AB (Rec: 08/28/20 16:51 AB [id number]) Orientation Orientation/Cognition Level of Alertness Alert Orientation Name,Place,Situation Language Function Ability No Deficits Noted Safety Awareness Decreased Safety Awareness Memory Description Short Term Impaired Comments alert but drowsy Gross Range of Motion Lower Extremity ROM Assessment Within Functional Limits Strength Lower Extremity Strength Hip 4-/5 Knee 4-/5 Sensation Assessment Sensation Gross Sensation WNL Muscle Tone Muscle Tone WNL Yes M6 PT-IP Treatment Start: 08/28/20 16:37 Freq: NEEDED Status: Active Protocol: Document 08/28/20 15:30 AB (Rec: 08/28/20 16:51 AB [id number]) Physical Therapy Treatment Education Education Provided Precautions,Weight Bearing Status,Post-Op Packet,Safety M7 PT-IP Assessment and Plan Start: 08/28/20 16:37 Freq: NEEDED Status: Active Protocol: Document 08/28/20 15:30 AB (Rec: 08/28/20 16:51 AB [id number]) PT Summary Assessment and Plan Potential Rehabilitation Potential Good Status of Condition at Evaluation Evolving Summary Impairments Pain,ROM,Strength,Balance, Coordination,Sensation,Tone, Cognition,Bed Mobility, Transfers,Gait,Activity Tolerance Assessment Summary pt s/p L3-S1 fusion/lami and just had surgery this morning. Pt want to move and do PT but was drowsy during PT session limiting activity. pt requiring max A at this time but will likely progress during hospital stay. informed pt's spouse regarding caregiver training when appropriate and agreed. will require further assessment for safe d/c plan. pt also has to complete stair climbing prior to d/c. Goals Bed Mobility Goal Standby Assistance Transfer Goal Standby Assistance,Front Wheeled Walker Gait Goal Standby Assistance,Front Wheel Walker Gait Distance 150 Other Goals ambulation using standard walker 150 ft SBA up/down 2 steps CGA using tripod cane/SPC Days to Meet Goals 5 Frequency of Treatment Frequency Of Treatment Twice a Day Treatment Plan Physical Therapy Treatment Plan Bed Mobility Training,Transfer Training,Gait Training, Therapeutic Exercise,Balance Retraining,Post Op Education, Discharge Planning,Hot or Cold Pack,Neuromuscular Re-ed, Coordination Retraining,Manual Therapy Precautions Lumbar Precautions Log Roll,No Twisting,Limit Bending,Lifting Restriction of 10 lbs,Gait Belt above Incisional Area Recommendations To Nursing Amount of Assist Needed 1 Person Assist Discharge Recommendations PT Discharge Recommendations Home with Assistance Transportation Needs at Discharge Private Vehicle
[2020-08-28] MEDS: OXYCODONE IR 5 MG TABLET 10 MG PO (15:53)
[2020-08-28] MEDS: GABAPENTIN 300 MG CAPSULE PO ×2 (15:58→20:14)
[2020-08-28] MEDS: HYDROMORPHONE 0.5 MG INJ IV (19:56)
[2020-08-28] MEDS: DOCUSATE 100 MG CAPSULE PO (20:14)
[2020-08-28] MEDS: METFORMIN HCL 500 MG TABLET 1000 MG PO (20:14)
[2020-08-28] MEDS: SENNOSIDES 8.6 MG TABLET 17.2 MG PO (20:14)
[2020-08-29] VITALS (8 sets, daily range): BP systolic 121–149; BP diastolic 52–79; PULSE 87–103; RESP 14–24; TEMP 36.6–37.6; O2SAT 86–96
[2020-08-29] MEDS: SODIUM CHLORIDE 0.9% 1,000 ML 100 ML IV (01:00)
--- NOTE | 2020-08-29 02:03 | PC.NURSE ---
Patient is alert and oriented. Breath sounds CTA; on oxygen at 3L/min at shift change with sats in upper 90's and now weaned down to 1L/min per NC with sat of 95%. HRR. BP trends high with last reading of 141/59. Denied nausea. BT present and abdomen is soft but denied having passed flatus; does report she typically has chronic diarrhea. Indwelling catheter is patent; urine is pale, yellow. Needs assistance to reposition in bed. Up to BSC as thought she had to have BM and is weak and very slow in movements; requiring walker and 2 assists. Dressing to back is intact with shadow drainage noted over left side of dressing. Chronic bilateral foot neuropathy; otherwise CMS is intact. Wearing bilateral foot SCD's. Fall risk score is high and bed alarm is activated.
[2020-08-29] MEDS: HYDROMORPHONE 0.5 MG INJ IV (04:21)
[2020-08-29] MEDS: CEFAZOLIN 1 GM VIAL 2 GM IV (04:25)
[2020-08-29 05:42] LABS: Hematocrit 30.3 % (36-46); Hemoglobin 10.1 g/dL (12.0-16.0)
[2020-08-29] MEDS: OXYCODONE IR 5 MG TABLET 10 MG PO ×3 (06:40→23:40)
[2020-08-29] MEDS: GABAPENTIN 300 MG CAPSULE PO ×3 (09:13→20:38)
[2020-08-29] MEDS: FLUoxetine 20 MG CAPSULE PO (09:13)
[2020-08-29] MEDS: DOCUSATE 100 MG CAPSULE PO ×2 (09:13→20:38)
[2020-08-29] MEDS: METFORMIN HCL 500 MG TABLET 1000 MG PO ×2 (09:13→20:38)
--- NOTE | 2020-08-29 09:30 | PM.PN.1 ---
Exam Vital Signs (past 8 hours): - 08/29/20 04:30 Temperature 98.1 F Pulse Rate 87 Respiratory Rate 14 Blood Pressure 121/52 L Pulse Oximetry 92 Oxygen Delivery Method Nasal Cannula Oxygen Flow Rate 1.0 Objective Labs Result Diagrams: 08/29/20 05:04 Labs: Laboratory Results - last 24 hr 08/29/20 05:04 Hgb 10.1 L Hct 30.3 L PFSH Medical History (Updated 08/20/20 @ 09:52 by Linda Oglesby RN) Arthritis Chronic pain Diabetes Diarrhea Facet arthropathy, lumbosacral Foraminal stenosis of lumbar region History of meniscal tear (~2008) History of Mohs micrographic surgery for skin cancer (12/2017) Hyperlipidemia Hypertension Joint pain Liver metastasis Melanoma of right upper arm (~1980) Pilonidal cyst Rattlesnake bite (~1983) Spondylolisthesis at L4-L5 level Surgical History (Updated 08/20/20 @ 09:52 by Linda Oglesby RN) H/O hernia repair (01/2017) H/O lateral meniscus repair of left knee H/O right hemicolectomy (~11/2015) History of abdominal surgery (~06/2016) History of appendectomy History of breast biopsy History of cholecystectomy (06/2016) History of colonoscopy History of laminectomy (2012) History of partial knee replacement (2011) History of radial keratotomy (~1988) History of surgery (1980) History of surgery (~06/2016) Hx of ventral hernia repair (12/2017) S/P epidural steroid injection S/P foot surgery, right Social History household members: spouse Smoking Status: Former smoker alcohol intake: never Assessment & Plan Assessment & Plan narrative: POD#1 s/p L3-S1 TLIF. Doing well with pain management. Dressing clean and dry and neuro intact. Will work with PT for mobility training. Possible d/c tomorrow if cleared by PT/OT. Once up with PT with d/c viera catheter. Quality VTE Deep Vein Thrombosis/Pulmonary Embolism Present on Admission: No
--- NOTE | 2020-08-29 10:45 | OT.IP.EVAL ---
Current Diagnoses Spondylolisthesis, lumbar region (08/28/20) Spinal stenosis, lumbar region with neurogenic claudication (08/28/20) Other specified postprocedural states (08/28/20) Surgery Performed Operation Date: 08/28/20 07:45 Actual Procedures p L3-4, L4-5, L5-S1 TLIF with posterior instrumentation - Brianna Mills MD Past Medical History (Last Updated 08/20/20 @ 09:52 by Linda Oglesby, RN) Arthritis Chronic pain Diabetes Diarrhea Facet arthropathy, lumbosacral Foraminal stenosis of lumbar region H/O hernia repair (01/2017) H/O lateral meniscus repair of left knee H/O right hemicolectomy (~11/2015) History of abdominal surgery (~06/2016) History of appendectomy History of breast biopsy History of cholecystectomy (06/2016) History of colonoscopy History of laminectomy (2012) History of meniscal tear (~2008) History of Mohs micrographic surgery for skin cancer (12/2017) History of partial knee replacement (2011) History of radial keratotomy (~1988) History of surgery (1980) History of surgery (~06/2016) Hx of ventral hernia repair (12/2017) Hyperlipidemia Hypertension Joint pain Liver metastasis Melanoma of right upper arm (~1980) Pilonidal cyst Rattlesnake bite (~1983) S/P epidural steroid injection S/P foot surgery, right Spondylolisthesis at L4-L5 level Surgical History (Last Updated 08/20/20 @ 09:52 by Linda Oglesby RN) H/O hernia repair (01/2017) H/O lateral meniscus repair of left knee H/O right hemicolectomy (~11/2015) History of abdominal surgery (~06/2016) History of appendectomy History of breast biopsy History of cholecystectomy (06/2016) History of colonoscopy History of laminectomy (2012) History of partial knee replacement (2011) History of radial keratotomy (~1988) History of surgery (1980) History of surgery (~06/2016) Hx of ventral hernia repair (12/2017) S/P epidural steroid injection S/P foot surgery, right Occupational Therapy Inpatient Evaluation/Re-Eval M1 PT/OT-IP Prior Functional Status Start: 08/28/20 16:37 Freq: NEEDED Status: Active Protocol: Document 08/29/20 10:59 CGR (Rec: 07/10/21 11:10 R [id number]) Medical Review Prior Functional Status Medical History Reviewed Yes Communication able to make needs known Mobility and Gait pt stated that she is independent with all mobilities and ambulation without AD Activities of Daily Living and IADL's Pt states she is IND with all ADLs at home with breaks and some difficulty Social History Household Members spouse Living Arrangements House Number of Floors (Floors) Two Floors Number of Stairs To Enter/Railing? pt stays on main level of the house has 2 steps without rails to enter Home Environment High Toilet,Tub/Shower Home Equipment Hand Held Shower,Grab Bars Near Toilet,Grab Bars In Shower Employment Status Retired Additional Social History Comment pt has a standard walker, flat bed, and a tripod cane M1 PT/OT-IP Prior Functional Status Start: 08/29/20 10:58 Freq: NEEDED Status: Active Protocol: Document 08/29/20 10:59 CGR (Rec: 08/29/20 11:10 R [id number]) Medical Review Prior Functional Status Medical History Reviewed Yes Communication able to make needs known Mobility and Gait pt stated that she is independent with all mobilities and ambulation without AD Activities of Daily Living and IADL's Pt states she is IND with all ADLs at home with breaks and some difficulty Social History Household Members spouse Living Arrangements House Number of Floors (Floors) Two Floors Number of Stairs To Enter/Railing? pt stays on main level of the house has 2 steps without rails to enter Home Environment High Toilet,Tub/Shower Home Equipment Hand Held Shower,Grab Bars Near Toilet,Grab Bars In Shower Employment Status Retired Additional Social History Comment pt has a standard walker, flat bed, and a tripod cane M2 OT-IP Current Condition Start: 08/29/20 10:58 Freq: Status: Active Protocol: Document 08/29/20 10:59 CGR (Rec: 08/29/20 11:10 R [id number]) Occupational Therapy Current Condition Current Condition Evaluation Date 08/29/20 Treatment Diagnosis L3-5 TLIF Diagnosis Onset Date 08/28/20 Post Operative Precautions Lumbar Precautions Log Roll,No Twisting,Limit Bending,Lifting Restriction of 10 lbs,Gait Belt above Incisional Area M3 OT- IP Subjective and Pain Start: 08/29/20 10:58 Freq: Status: Active Protocol: Document 08/29/20 10:59 CGR (Rec: 08/29/20 11:10 CGR [id number]) OT- Subjective Occupational Therapy Visit Type Type Initial Evaluation Visit Start Time 10:16 Visit Stop Time 10:45 Total Visit Minutes 29 OT Pain Assessment Pain When Pain Assessed At Rest Pain Present Pain Present Pain Reported Location Back Intensity 10 Scale Used Numeric (0 - 10) Management Techniques Distraction,Modification of Treatment,Re-positioning, Timing of Activity with Medications M4 OT- IP ADL's Start: 08/29/20 10:58 Freq: Status: Active Protocol: Document 08/29/20 10:59 CGR (Rec: 08/29/20 11:10 CGR [id number]) OT [id number] Comments OT Self-Feeding Comments Not meal time OT ADL-Grooming General Evaluation Grooming Ability Standby Assistance Areas Needing Assistance Retrieving/Set-up of Grooming Items,Face Washing Comments OT Grooming Comments seated in chair OT ADL-Oral Care General Eval Oral Care Ability Standby Assistance Areas of Assistance Brushing Teeth,Retrieving/Set- Up of Items Comments Oral Care Comments seated in chair OT ADL-Dressing General Eval Lower Body Dressing Ability Total Assistance Areas Needing Assistance Socks OT ADL-Toileting General Evaluation Toileting Ability Total Assistance Comments OT Toileting Comments Pt with viera OT ADL-Bathing Comments OT Bathing Comments Not appropriate at this time. M5 OT- IP IADL's Start: 08/29/20 10:58 Freq: Status: Active Protocol: Document 08/29/20 10:59 CGR (Rec: 08/29/20 11:10 CGR [id number]) OT-Instrumental Activities of Daily Living Deficits IADL Deficits Identified No Deficits Home Safety Awareness Awareness of Need for Assistance at Home Good Awareness Ability to Problem Solve Emergency Able to Problem Solve Situations Medication Management Medication Management No Deficits Identified Money Management Money Management No Deficits Identified Meal Preparation Meal Preparation Caregiver Provides Assist Highway Inspector Highway Inspector Caregiver Provides Assist Driving Driving Comments 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 M6 OT- IP Functional Cognition Start: 08/29/20 10:58 Freq: Status: Active Protocol: Document 08/29/20 10:59 CGR (Rec: 07/10/21 11:10 R [id number]) Cognitive Factors Limiting Selfcare Function Cognitive Ability Level of Alertness Alert,Confusional State Patient Orientation Name,Age,Birthday,Month,Date, Year,Day of Week,Place, Situation Attention Span Ability Capable of Focused Attention, Capable of Sustained Attention Ability to Follow Commands Able to Follow One Step Commands with Increased Time, Able to Follow One Step Commands with Repetition Cognitive Comments Cognitive Assessment Comments Pt is minimally confused but appears aware of her confusion and states that it is from her pain medication. OT- Vision and Hearing OT- Hearing Assessment OT- Hearing Assessment WFL OT- Vision Assessment Visual Acuity Glasses All The Time Visual Attentiveness WFL Occular Pursuits WFL Visual Convergence WFL Vision Assessment Comments Pt wears bifocals M7 OT- IP Mobility and Balance Start: 08/29/20 10:58 Freq: Status: Active Protocol: Document 08/29/20 10:59 CGR (Rec: 08/29/20 11:10 R [id number]) OT- Bed Mobility Assessment Rolling Type of Rolling Log Rolling,Roll to Left Level of Assistance Moderate Assistance,1 Person Assistance,Bedrails Supine to Sit Supine to Sit Assist Maximum Assistance,1 Person Assistance,Bedrails Scooting Scooting to Edge of Bed Maximum Assistance,1 Person Assistance,Bedrails OT-Transfer Assessment Sit to and From Stand Sit to and from Stand Maximum Assistance,1 Person Assistance Transfers Transfer Ability Maximum Assistance,1 Person Assistance Technique Transfer Destination Bed,Chair Transfer Technique Stand Step Pivot Devices Transfer Assistive Devices Gait Belt,Front Wheeled Walker Comments Mobility Comments Pt needed significant assist for all mobility and states pain with all movement. OT- Balance Assessment Sitting Balance and Reactions Static Sitting Balance Ability Fair Dynamic Sitting Balance Ability Fair Comments Other Balance Tests/Deviations/Treatment Pt needs hands to support : sitting EOB M8 OT- IP Objective Assessments Start: 08/29/20 10:58 Freq: Status: Active Protocol: Document 08/29/20 10:59 CGR (Rec: 08/29/20 11:10 R [id number]) OT Gross Range of Motion Upper Extremity Range of Motion Assessment Within Functional Limits OT Strength Upper Extremity Strength Assessment Within Functional Limits OT- Coordination Assessment Upper Extremity Finger to Nose Test Within Functional Limits Finger Tapping Test Within Functional Limits OT-Muscle Tone Assessment Muscle Tone WNL Yes OT Sensation Assessment Edema Edema Absent M9 OT- IP Assessment and Plan Start: 08/29/20 10:58 Freq: Status: Active Protocol: Document 08/29/20 10:59 CGR (Rec: 08/29/20 11:10 CGR [id number]) OT Summary Assessment and Plan Potential Rehabilitation Potential Excellent Analytic Complexity at Evaluation Moderate Summary OT Impairments Pain,Balance,Functional Cognition,Functional Mobility, Grooming,Dressing,Toileting, Bathing,Toilet Transfers, Shower Transfers,Activity Tolerance Progress Towards Goals Slow Progress due to Pain Assessment Summary Pt presents as a moderate complexity evaluation s/p admit for L3-S1 TLIF. Pt is requiring max a for all bed mobility and transfers this AM . Pt states 10/10 pain at this time. Pt will benefit from SNF upon discharge as pt's elderly will not be able to support pt at her current level of need. Continued OT services while hospitalized is likely to benefit pt. Goals Grooming Goal Independent Dressing Goal Independent Toileting Goal Independent Bathing Goal Independent Toilet Transfer Goal Independent Days to Meet Goals 15 Frequency of Treatment Frequency Of Treatment Once a Day Treatment Plan OT Treatment Plan ADL Training,Functional Cognition Training,Functional Mobility,Patient/Family Education,Discharge Planning Other Treatment Recommendations and Next ADLs standing if pt is able to Treatment Focus tolerate, BSC transfer Discharge Recommendations OT Discharge Recommendations SNF Rehab Transportation Needs at Discharge Wheelchair/Cabulance
--- NOTE | 2020-08-29 11:19 | PT.IPTN ---
Current Diagnoses Spondylolisthesis, lumbar region (08/28/20) Spinal stenosis, lumbar region with neurogenic claudication (08/28/20) Other specified postprocedural states (08/28/20) Surgery Performed Operation Date: 08/28/20 07:45 Actual Procedures p L3-4, L4-5, L5-S1 TLIF with posterior instrumentation - Brianna Mills MD Physical Therapy Treatment Note M2 PT-IP Current Condition Start: 08/28/20 16:37 Freq: NEEDED Status: Active Protocol: Document 08/28/20 15:30 AB (Rec: 08/28/20 16:51 AB [id number]) Physical Therapy Current Condition Current Condition Evaluation Date 08/28/20 Treatment Diagnosis s/p L3-4, L4-5, L5S1 fusion/ lami; difficulty in walking Onset Date 08/28/20 Precautions Lumbar Precautions Log Roll,No Twisting,Limit Bending,Lifting Restriction of 10 lbs,Gait Belt above Incisional Area M3 PT-IP Subjective Start: 08/28/20 16:37 Freq: NEEDED Status: Active Protocol: Document 08/29/20 10:57 CLB (Rec: 08/29/20 12:51 CLB [id number]) Subjective Physical Therapy Visit Type Type Treatment Note Visit Start Time 10:56 Visit Stop Time 11:19 Total Visit Minutes 23 Notes present Number of LIVING SKILLS ADVISOR Visits 1 Physical Therapy Visit Comments Patient Comments Pt needing to use BSC. Therapy Pain Assessment Pain When Pain Assessed At Rest Pain Present Pain Present Pain Reported Location Back Intensity 8 Scale Used Numeric (0 - 10) Pain Management Techniques Apply Cold,Modification of Treatment,Re-positioning, Timing of Activity with Medications M4 PT-IP Mobility and Gait Start: 08/28/20 16:37 Freq: NEEDED Status: Active Protocol: Document 08/29/20 10:57 CLB (Rec: 08/29/20 12:51 CLB [id number]) PT-Transfer Assessment Sit to and From Stand Sit to and from Stand Maximum Assistance,1 Person Assistance,Use of Upper Extremities Equipment Transfer Assistive Device Gait Belt,Front Wheeled Walker Transfers Transfer Destination Bedside Commode Transfer Technique Stand Step Pivot Transfer Ability Level of Assist Moderate Assistance,1 Person Assistance,Use of Upper Extremities Comments Mobility Comments Pt O2 on 1L 94%.Pt required Min A with use of draw sheet to scoot forward in chair. Pt then required Max A to stand with cues for quad activation. Pt required Mod A for stand step pivot to BSC and Mod A to controll descent while sitting. Pt unable to use BSC due to discomfort of BSC on posterior legs. Pt stood from BSC unable to stand with hands of BSC and used both hands on walker as walker was stablized. Pt transferred back to chair Min A. Pt able to sit in chair Min A and was able to scoot back in chair SBA. Pt O2 on 1L after transfer 95%. Pt performed AP' s. Call light and all needs within reach, present. Gait Assessment Gait Gait Assistance Required: Moderate Assistance,1 Person Assist Distance (Feet) 2 Assistive Devices Assistive Device Gait Belt,Front Wheeled Walker Factors Limiting Gait Function Factors Limiting Gait Function Decreased Activity Tolerance, Decreased Sensation,Decreased Strength,Difficulty Following Directions,Limited Range of Motion,Pain,Poor Balance,Poor Safety Awareness Comments Gait Comments Pt took steps towards BSC then back to chair total of ~4ft. M5 PT-IP Objective Assessments Start: 08/28/20 16:37 Freq: NEEDED Status: Active Protocol: Document 08/28/20 15:30 AB (Rec: 08/28/20 16:51 AB [id number]) Orientation Orientation/Cognition Level of Alertness Alert Orientation Name,Place,Situation Language Function Ability No Deficits Noted Safety Awareness Decreased Safety Awareness Memory Description Short Term Impaired Comments alert but drowsy Gross Range of Motion Lower Extremity ROM Assessment Within Functional Limits Strength Lower Extremity Strength Hip 4-/5 Knee 4-/5 Sensation Assessment Sensation Gross Sensation WNL Muscle Tone Muscle Tone WNL Yes M6 PT-IP Treatment Start: 08/28/20 16:37 Freq: NEEDED Status: Active Protocol: Document 08/29/20 10:57 CLB (Rec: 08/29/20 12:51 CLB [id number]) Physical Therapy Treatment Exercises Exercises Ankle Pumps Education Education Provided Precautions,Weight Bearing Status,Safety M7 PT-IP Assessment and Plan Start: 08/28/20 16:37 Freq: NEEDED Status: Active Protocol: Document 08/29/20 10:57 CLB (Rec: 08/29/20 12:51 CLB [id number]) PT Summary Assessment and Plan Potential Rehabilitation Potential Good Status of Condition at Evaluation Evolving Summary Impairments Pain,ROM,Strength,Balance, Coordination,Sensation,Tone, Cognition,Bed Mobility, Transfers,Gait,Activity Tolerance Progress Towards Goals Slow Progress due to Pain,Slow Progress due to Activity Tolerance Assessment Summary Pt requiring Min A to scoot forward, Max A for sit-stand and Mod [place] [facility] [place] O[place] on 1L 94-95% during mobility. Due to pts level of assist pt would benefit from SNF rehab as is unable to assist pt with high level needs. Goals Bed Mobility Goal Standby Assistance Transfer Goal Standby Assistance,Front Wheeled Walker Gait Goal Standby Assistance,Front Wheel Walker Gait Distance 150 Other Goals ambulation using standard walker 150 ft SBA up/down 2 steps CGA using tripod cane/SPC Days to Meet Goals 5 Frequency of Treatment Frequency Of Treatment Twice a Day Treatment Plan Physical Therapy Treatment Plan Bed Mobility Training,Transfer Training,Gait Training, Therapeutic Exercise,Balance Retraining,Post Op Education, Discharge Planning,Hot or Cold Pack,Neuromuscular Re-ed, Coordination Retraining,Manual Therapy Other Recommendations and Next Treatment gait with chair follow, bed Focus mobility Precautions Lumbar Precautions Log Roll,No Twisting,Limit Bending,Lifting Restriction of 10 lbs,Gait Belt above Incisional Area Recommendations To Nursing Amount of Assist Needed 1 Person Assist Discharge Recommendations PT Discharge Recommendations SNF Rehab Transportation Needs at Discharge Private Vehicle
--- NOTE | 2020-08-29 11:24 | CM.DANOTE ---
Discharge Planning/Care Management CM Discharge Assessment Start: 08/29/20 11:23 Freq: Status: Active Protocol: Document 08/29/20 11:23 ITV (Rec: 08/29/20 11:24 ITV [id number]) Discharge Planning Assessment Advance Directives? Yes Advance Directives on File Yes History Provided By Patient,Family Member Prior Living Arrangements House Household Members spouse Comment Gene Independent with ADL's Yes Is patient alert and oriented? Yes Pre-Anesthesia Assessment Start: 08/20/20 08:54 Freq: Status: Complete Protocol: Document 08/20/20 08:54 CAB (Rec: 08/20/20 09:52 CAB [id number]) Pre-Anesthesia Assessment Preferred Name Shelley Patient Information Reviewed Via Phone Assessment Assessment Completed With Patient Diagnostic Results BMP/CMP,CBC,EKG Comment Labs/EKG @ [facility] 07/29/20 COVID screen @ [facility]-needs to schedule Primary Care Provider Kimberly Cho Seen Specialist in Last 12 Months Yes Specialist Seen Aeronautical Test Engineer,Oncologist, Opthamologist/Proof Load Mechanic, Orthopedist Primary Language Faroese Supervisor Microwave Required No Height 160.02 cm Weight 83.461 kg Body Mass Index (BMI) 32.5 Hearing Ability Normal Visual Assist Glasses Dentition Type Teeth, Natural Present Barriers to Learning None Hx Anesthesia Reactions Yes: PONV-requests antiemetic prior Hx Family Anesthesia Reaction Yes: Sister-PONV Hx Malignant Hyperthermia No Hx Blood Transfusions No Anesthesia Review Requested No alcohol intake never Smoking Status Former smoker how long ago did patient quit smoking Quit approx 30 years ago Substance Use Type does not use Pain Present Pain Reported Musculoskeletal Symptoms Abnormal Gait,Back Pain, Difficulty Walking,Numbness, Radiating Pain into Limb, Tingling History of Falling (Recent or History of Yes ) Patient is completely paralyzed or No completely immobile Mental Status Oriented to own ability Is patient on oxygen? No Does patient have LAM/SOB No Hx Sleep Apnea No Currently Taking a Beta Shy No Can You Climb a Flight of Stairs Without Yes SOB Hx Chest Pain No Hx SOB No Hx Syncope or Dizziness No Anti-Coagulant Therapy No Has a Staple Side Laster No Cardiac Testing No Hx Pacemaker/ICD No Pacemaker Rep Required? No Cardiac Clearance Received Not Applicable Diet Type At Home Regular dysphagia No Gastrointestinal Symptoms Diarrhea Urinary Catheter Present No Hx Urinary Self Catheterization No Diabetes Yes HgbA1C 6.5 Date 07/29/20 Patient No Lactating No Hx Drug Resistant Organism No Presence of External or Internal Medical Yes: right knee Devices Have you had any close contact with No someone diagnosed with COVID-19? Marital Status Lives With spouse Prior Living Arrangements House Number of Floors (Floors) Two Floors Support System Spouse Does the Patient Have Assistance After Yes Surgery Patient Discharge Plan Description Return Home Comment Pt advised 2-3 day length of stay per surgeon Feels Safe in Current Environment Yes Been Physically Hurt or Threatened By a No Person in Current Environment Do you have thoughts of harming yourself None or others? Are you currently considering suicide? No Do you have a plan to hurt yourself or No Plan others? Do You Have Any Spiritual Beliefs That No May Affect Your HC Choices? Do You Have Any Cultural Practices That No May Affect Your HC Choices? Comment Presybeterian Who Can We Speak to About Patient's Care Family, friends Identifying Code for Release of Patient Declines to issue Information Health Care Proxy/Next of Kin Gene () Health Care Proxy Emergency Contact Name Gene () Emergency Contact Advance Directives? Yes Advance Directives on File Yes Power of Manager Psychology Yes Power of Manager Psychology Name Gene () Power of Manager Psychology PAC Instructions Diabetes instructions,Durable medical equipment,Medications to take/avoid,Nasal antibiotic ,No ETOH/petroleum product on skin DOS,NPO,Post-op transportation,Pre-surgical wash,Sturdy shoes/comfortable clothes,Do not bring valuables and remove jewelry
--- NOTE | 2020-08-29 11:28 | CM.DANOTE ---
Addendum entered by Jane Ignacio LPN 08/29/20 11:42: Paul also says that a friend who is an OBGYN will be arriving on Monday to stay with them and he says this adds to his confidence in taking pt home. Original Note: Discharge Planning/Care Management DCPlan: Assessment. Case received, EMR reviewed and discussed in Team Rounds. Met then with pt and her aPul. Introduced self and role. (pt was in process of working with DOCENT COORDINATOR Dania) Pt is a 75 year old female who admitted yesterday for a scheduled spinal surgery/fusion. Surgeon: Dr. Mills Payer: [employer] Medicare Admission status: INPT: confirmed by UR RN Carlos. PT did see pt yesterday for first eval and noted that pt was making good progress for home with . OT today recommends snf. DOCENT COORDINATOR is seeing pt now. Spoke primarily with pt's spouse as pt was focusing on the treatment. Paul says that he and his are very hopeful that she will be able to return home after a few days in the hospital. Paul feels capable of assisting pt and expects that she will improve daily. He says that between the OT tx of about an hour ago and now this PT treatment he can see that his is doing much better. He also says she is still in a bit of a fog from the surgery and the medication. Had brief discussion re snf and the way A[employer] Medicare factors into this. Agreed to resume the d/c dispo conversation tomorrow as do agree that pt will likely continue to show improvement. Dr. Mills says in his note today that d/c MAY be possible tomorrow if pt has been cleared for home by PT/OT. Will check in early tomorrow and be following. CM Discharge Assessment Start: 08/29/20 11:23 Freq: Status: Active Protocol: Document 08/29/20 11:23 ITV (Rec: 08/29/20 11:24 ITV [id number]) Discharge Planning Assessment Advance Directives? Yes Advance Directives on File Yes History Provided By Patient,Family Member Prior Living Arrangements House Household Members spouse Comment Paul Independent with ADL's Yes Is patient alert and oriented? Yes Pre-Anesthesia Assessment Start: 08/20/20 08:54 Freq: Status: Complete Protocol: Document 08/20/20 08:54 CAB (Rec: 07/01/21 09:52 [facility] [id number]) Pre-Anesthesia Assessment Preferred Name Shelley Patient Information Reviewed Via Phone Assessment Assessment Completed With Patient Diagnostic Results BMP/CMP,CBC,EKG Comment Labs/EKG @ [facility] 07/29/20 COVID screen @ [facility]-needs to schedule Primary Care Provider Kimberly Cho Seen Specialist in Last 12 Months Yes Specialist Seen Road Service Locksmith,Oncologist, Opthamologist/Flight Teacher, Orthopedist Primary Language Kazakh Big Data Analytics Lead Required No Height 160.02 cm Weight 83.461 kg Body Mass Index (BMI) 32.5 Hearing Ability Normal Visual Assist Glasses Dentition Type Teeth, Natural Present Barriers to Learning None Hx Anesthesia Reactions Yes: PONV-requests antiemetic prior Hx Family Anesthesia Reaction Yes: Sister-PONV Hx Malignant Hyperthermia No Hx Blood Transfusions No Anesthesia Review Requested No alcohol intake never Smoking Status Former smoker how long ago did patient quit smoking Quit approx 30 years ago Substance Use Type does not use Pain Present Pain Reported Musculoskeletal Symptoms Abnormal Gait,Back Pain, Difficulty Walking,Numbness, Radiating Pain into Limb, Tingling History of Falling (Recent or History of Yes ) Patient is completely paralyzed or No completely immobile Mental Status Oriented to own ability Is patient on oxygen? No Does patient have LAM/SOB No Hx Sleep Apnea No Currently Taking a Beta Shy No Can You Climb a Flight of Stairs Without Yes SOB Hx Chest Pain No Hx SOB No Hx Syncope or Dizziness No Anti-Coagulant Therapy No Has a Coil Strapper No Cardiac Testing No Hx Pacemaker/ICD No Pacemaker Rep Required? No Cardiac Clearance Received Not Applicable Diet Type At Home Regular dysphagia No Gastrointestinal Symptoms Diarrhea Urinary Catheter Present No Hx Urinary Self Catheterization No Diabetes Yes HgbA1C 6.5 Date 07/29/20 Patient No Lactating No Hx Drug Resistant Organism No Presence of External or Internal Medical Yes: right knee Devices Have you had any close contact with No someone diagnosed with COVID-19? Marital Status Lives With spouse Prior Living Arrangements House Number of Floors (Floors) Two Floors Support System Spouse Does the Patient Have Assistance After Yes Surgery Patient Discharge Plan Description Return Home Comment Pt advised 2-3 day length of stay per surgeon Feels Safe in Current Environment Yes Been Physically Hurt or Threatened By a No Person in Current Environment Do you have thoughts of harming yourself None or others? Are you currently considering suicide? No Do you have a plan to hurt yourself or No Plan others? Do You Have Any Spiritual Beliefs That No May Affect Your HC Choices? Do You Have Any Cultural Practices That No May Affect Your HC Choices? Comment Gnosticist Who Can We Speak to About Patient's Care Family, friends Identifying Code for Release of Patient Declines to issue Information Health Care Proxy/Next of Kin Gene () Health Care Proxy Emergency Contact Name Gene () Emergency Contact Advance Directives? Yes Advance Directives on File Yes Power of Operating Room Nurse Yes Power of Operating Room Nurse Name Gene () Power of Operating Room Nurse PAC Instructions Diabetes instructions,Durable medical equipment,Medications to take/avoid,Nasal antibiotic ,No ETOH/petroleum product on skin DOS,NPO,Post-op transportation,Pre-surgical wash,Sturdy shoes/comfortable clothes,Do not bring valuables and remove jewelry
[2020-08-29] MEDS: OXYCODONE IR 5 MG TABLET PO ×2 (12:26→20:46)
--- NOTE | 2020-08-29 13:49 | PT.IPTN ---
Current Diagnoses Spondylolisthesis, lumbar region (08/28/20) Spinal stenosis, lumbar region with neurogenic claudication (08/28/20) Other specified postprocedural states (08/28/20) Surgery Performed Operation Date: 08/28/20 07:45 Actual Procedures p L3-4, L4-5, L5-S1 TLIF with posterior instrumentation - Brianna Mills MD Physical Therapy Treatment Note M2 PT-IP Current Condition Start: 08/28/20 16:37 Freq: NEEDED Status: Active Protocol: Document 08/28/20 15:30 AB (Rec: 08/28/20 16:51 AB [id number]) Physical Therapy Current Condition Current Condition Evaluation Date 08/28/20 Treatment Diagnosis s/p L3-4, L4-5, L5S1 fusion/ lami; difficulty in walking Onset Date 08/28/20 Precautions Lumbar Precautions Log Roll,No Twisting,Limit Bending,Lifting Restriction of 10 lbs,Gait Belt above Incisional Area M3 PT-IP Subjective Start: 08/28/20 16:37 Freq: NEEDED Status: Active Protocol: Document 08/29/20 13:23 CLB (Rec: 08/29/20 14:11 CLB [id number]) Subjective Physical Therapy Visit Type Type Treatment Note Visit Start Time 13:23 Visit Stop Time 13:49 Total Visit Minutes 26 Number of RAW PRODUCTS DIRECTOR Visits 2 Physical Therapy Visit Comments Patient Comments Pt willing to work with therapy. Therapy Pain Assessment Pain When Pain Assessed At Rest Pain Present Pain Present Pain Reported Location Back Scale Used did not quantify Pain Management Techniques Modification of Treatment,Re- positioning,Timing of Activity with Medications M4 PT-IP Mobility and Gait Start: 08/28/20 16:37 Freq: NEEDED Status: Active Protocol: Document 08/29/20 13:23 CLB (Rec: 08/29/20 14:11 CLB [id number]) PT-Bed Mobility Assessment Rolling Type of Rolling Log Rolling Level of Assist Maximal Assistance Supine to Sit Supine to Sit Maximum Assistance,Bedrails Sit to Supine Sit to Supine Maximum Assistance,2 Person Assistance Scooting Scooting to Edge of Bed Maximum Assistance Scooting Up and Down in Bed Maximum Assistance PT-Transfer Assessment Sit to and From Stand Sit to and from Stand Minimal Assistance,1 Person Assistance,Use of Upper Extremities Equipment Transfer Assistive Device Gait Belt,Front Wheeled Walker Transfers Transfer Technique walked with FWW Transfer Ability Level of Assist Minimal Assistance,1 Person Assistance,Use of Upper Extremities Comments Mobility Comments Pt O2 on 1L during tx 94-96%. Pt required Max A for sidelying to sit with use of bed rails and HOB elevated, then Max A to scoot to EOB. Pt stood from bed Min A and ambulated in room ~30ft w/FWW/ Min A with cues for proper positioning in walker. Pt sat on EOB Min A and then required Max Ax2 to get from sit- supine and Max A to position in bed. Pt left in bed with alarm on and all needs within reach. present. RN assist with pt sit-supine. Gait Assessment Gait Gait Assistance Required: Minimum Assistance,1 Person Assist Distance (Feet) 30 Assistive Devices Assistive Device Gait Belt,Front Wheeled Walker Gait Deviations General Gait Pattern Antalgic,Decreased Stride Length,Decreased Feet Clearance Factors Limiting Gait Function Factors Limiting Gait Function Decreased Activity Tolerance, Decreased Sensation,Decreased Strength,Difficulty Following Directions,Limited Range of Motion,Pain,Poor Balance,Poor Safety Awareness Comments Gait Comments Pt requiring increased time for ambulation. M5 PT-IP Objective Assessments Start: 08/28/20 16:37 Freq: NEEDED Status: Active Protocol: Document 08/28/20 15:30 AB (Rec: 08/28/20 16:51 AB [id number]) Orientation Orientation/Cognition Level of Alertness Alert Orientation Name,Place,Situation Language Function Ability No Deficits Noted Safety Awareness Decreased Safety Awareness Memory Description Short Term Impaired Comments alert but drowsy Gross Range of Motion Lower Extremity ROM Assessment Within Functional Limits Strength Lower Extremity Strength Hip 4-/5 Knee 4-/5 Sensation Assessment Sensation Gross Sensation WNL Muscle Tone Muscle Tone WNL Yes M6 PT-IP Treatment Start: 08/28/20 16:37 Freq: NEEDED Status: Active Protocol: Document 08/29/20 10:57 CLB (Rec: 08/29/20 12:51 CLB [id number]) Physical Therapy Treatment Exercises Exercises Ankle Pumps Education Education Provided Precautions,Weight Bearing Status,Safety M7 PT-IP Assessment and Plan Start: 08/28/20 16:37 Freq: NEEDED Status: Active Protocol: Document 08/29/20 13:23 CLB (Rec: 08/29/20 14:11 CLB [id number]) PT Summary Assessment and Plan Potential Rehabilitation Potential Good Status of Condition at Evaluation Evolving Summary Impairments Pain,ROM,Strength,Balance, Coordination,Sensation,Tone, Cognition,Bed Mobility, Transfers,Gait,Activity Tolerance Progress Towards Goals Slow Progress due to Pain,Slow Progress due to Activity Tolerance Assessment Summary Pt requiring Max A x1-2 for bed mobility, Min A for sit<> stand from bed and Min A during ambulation with cues for proper positioning body in walker. Pt SpO2 on 1L 94-96% during tx. Pt will benefit from SNF rehab to improve activity tolerance for functional mobility. Goals Bed Mobility Goal Standby Assistance Transfer Goal Standby Assistance,Front Wheeled Walker Gait Goal Standby Assistance,Front Wheel Walker Gait Distance 150 Other Goals ambulation using standard walker 150 ft SBA up/down 2 steps CGA using tripod cane/SPC Days to Meet Goals 5 Frequency of Treatment Frequency Of Treatment Twice a Day Treatment Plan Physical Therapy Treatment Plan Bed Mobility Training,Transfer Training,Gait Training, Therapeutic Exercise,Balance Retraining,Post Op Education, Discharge Planning,Hot or Cold Pack,Neuromuscular Re-ed, Coordination Retraining,Manual Therapy Other Recommendations and Next Treatment bed mobility, increase gait as Focus able. Precautions Lumbar Precautions Log Roll,No Twisting,Limit Bending,Lifting Restriction of 10 lbs,Gait Belt above Incisional Area Recommendations To Nursing Amount of Assist Needed 1 Person Assist Discharge Recommendations PT Discharge Recommendations SNF Rehab Transportation Needs at Discharge Private Vehicle
[2020-08-29] MEDS: SENNOSIDES 8.6 MG TABLET 17.2 MG PO (20:38)
--- NOTE | 2020-08-29 22:17 | PC.NURSE ---
Shift note: Alert to self but confused about the date and intermittently what is going on. Confusion with situation and place, apparent to staff and spouse, reporting needing to go to [place]. Does not use call light, spouse has been using it to call for staff but will be leaving for the night. Spouse reports that this confusion is a change from baseline and all other surgeries patient has had. Patient had a scopalamine patch behind left ear, removed in case this was contributing to confusion. Spouse in agreement with removal and hopes it improves patient's mentation. Removed viera at 1630 per providers written order. Patient has been up several times in attempts to void but been unsuccessful. All bladder scans have not shown any retained urine. Encouraged patient to drink fluids. Will notify oncoming shift about removal and bladder scans. Given IS with education and encouraged usage. High fall risk d/t confusion and weakness. Bed alarm on and functioning, call light in reach. [ End ]
--- NOTE | 2020-08-29 23:44 | PC.NURSE ---
Patient is alert and oriented except did not know day of week. Breath sounds diminished but CTA; RA sat only 86% so placed back on oxygen per NC at 1L/min with sat improving to 96% so now decreased to 0.5L/min. Denies SOB. HRR with BP of 140/67. Denies nausea. BT present but denies having passed flatus as yet. Catheter removed on previous shift and now able to urinate 250cc clear, ramos urine; denies any dysuria. Unable to move purposefully in bed so will need to be repositioned q2h. Dressing to back is intact with shadow drainage noted/outlined on both sides of dressing; bruises on either side of dressing. CMS intact except to chronic bilateral foot neuropathy. Needing 2 assist + walker to get up to BSC/back to bed. Wearing bilateral foot SCD's. Complained of 9/10 sharp back pain so medicated with Oxycodone.
[2020-08-30] VITALS (8 sets, daily range): BP systolic 123–148; BP diastolic 55–80; PULSE 88–107; RESP 18–22; TEMP 36.2–37.9; O2SAT 88–96
[2020-08-30] MEDS: OXYCODONE IR 5 MG TABLET 10 MG PO ×3 (04:44→20:11)
[2020-08-30] MEDS: VITAMIN E 400 UNIT CAPSULE PO (09:10)
[2020-08-30] MEDS: METFORMIN HCL 500 MG TABLET 1000 MG PO ×2 (09:11→20:12)
[2020-08-30] MEDS: MULTIVITAMIN 1 TABLET 1 TAB PO (09:11)
[2020-08-30] MEDS: FLUoxetine 20 MG CAPSULE PO (09:11)
[2020-08-30] MEDS: GABAPENTIN 300 MG CAPSULE PO ×3 (09:11→20:11)
[2020-08-30] MEDS: SODIUM CHLORIDE 0.9% FLUSH 10 ML IV ×2 (09:12→20:12)
--- NOTE | 2020-08-30 10:03 | P.PN_ITS ---
Subjective Subjective Date Patient Seen: 08/30/20 Time Patient Seen: 10:03 Interval history: Patient is a 75-year-old female now postop day 2. She has been improving with her pain control. She also stopped taking the scopolamine which patient and her thinks has been causing some confusion. Yesterday she was 2 person assist. This morning she is now 1 person assist Exam Vital Signs (past 8 hours): - 08/30/20 04:37 08/30/20 04:45 08/30/20 05:15 Temperature 97.1 F L Pulse Rate 93 H Respiratory Rate 22 Blood Pressure 148/72 H Pulse Oximetry 93 88 L 94 08/30/20 08:00 Temperature 98.7 F Pulse Rate 88 Respiratory Rate 18 Blood Pressure 148/80 H Pulse Oximetry 93 Oxygen Delivery Method Room Air,Nasal Cannula Oxygen Flow Rate 0 Narrative Exam Narrative: Neurovascularly intact in bilateral lower extremities. Dressings clean dry and intact. 5/5 strength in dorsiflexion plantar flexion EHL bilaterally. Objective Labs Result Diagrams: 08/29/20 05:04 [facility] Medical History (Updated 08/20/20 @ 09:52 by Linda Oglesby RN) Arthritis Chronic pain Diabetes Diarrhea Facet arthropathy, lumbosacral Foraminal stenosis of lumbar region History of meniscal tear (~2008) History of Mohs micrographic surgery for skin cancer (12/2017) Hyperlipidemia Hypertension Joint pain Liver metastasis Melanoma of right upper arm (~1980) Pilonidal cyst Rattlesnake bite (~1983) Spondylolisthesis at L4-L5 level Surgical History (Updated 08/20/20 @ 09:52 by Linda Oglesby RN) H/O hernia repair (01/2017) H/O lateral meniscus repair of left knee H/O right hemicolectomy (~11/2015) History of abdominal surgery (~06/2016) History of appendectomy History of breast biopsy History of cholecystectomy (06/2016) History of colonoscopy History of laminectomy (2012) History of partial knee replacement (2011) History of radial keratotomy (~1988) History of surgery (1980) History of surgery (~06/2016) Hx of ventral hernia repair (12/2017) S/P epidural steroid injection S/P foot surgery, right Social History household members: spouse Smoking Status: Former smoker alcohol intake: never Assessment & Plan Assessment & Plan narrative: Patient is a 75-year-old female now postop day 2 from spine surgery with Dr. Mills. Yesterday she was 2 person assist with physical therapy. She also had some confusion postoperatively which may be related to a scopolamine patch use baking taking for nausea. Patches subsequently been removed and confusion has greatly improved. She has alert and oriented this mo rning. She continues to be 1 person assist with physical therapy. Our continue to work with physical therapy with gait training and strengthening and mobilization. If the patient clears physical therapy potential discharge today otherwise plan for discharge tomorrow. Time Spent With Patient Time with patient: 15-24 minutes Quality VTE Deep Vein Thrombosis/Pulmonary Embolism Present on Admission: No
--- NOTE | 2020-08-30 10:20 | PT.IPTN ---
Current Diagnoses Spondylolisthesis, lumbar region (08/28/20) Spinal stenosis, lumbar region with neurogenic claudication (08/28/20) Other specified postprocedural states (08/28/20) Surgery Performed Operation Date: 08/28/20 07:45 Actual Procedures p L3-4, L4-5, L5-S1 TLIF with posterior instrumentation - Brianna Mills MD Physical Therapy Treatment Note M2 PT-IP Current Condition Start: 08/28/20 16:37 Freq: NEEDED Status: Active Protocol: Document 08/28/20 15:30 AB (Rec: 08/28/20 16:51 AB [id number]) Physical Therapy Current Condition Current Condition Evaluation Date 08/28/20 Treatment Diagnosis s/p L3-4, L4-5, L5S1 fusion/ lami; difficulty in walking Onset Date 08/28/20 Precautions Lumbar Precautions Log Roll,No Twisting,Limit Bending,Lifting Restriction of 10 lbs,Gait Belt above Incisional Area M3 PT-IP Subjective Start: 08/28/20 16:37 Freq: NEEDED Status: Active Protocol: Document 08/30/20 10:20 DLM (Rec: 08/30/20 13:06 DL [id number]) Subjective Physical Therapy Visit Type Type Treatment Note Visit Start Time 09:45 Visit Stop Time 10:20 Total Visit Minutes 35 Number of HAND PRINTED CIRCUIT BOARD ASSEMBLER Visits 0 Physical Therapy Visit Comments Patient Comments Pt and her Spouse report she is doing much better today. Patient Goals she wants to discharge home Therapy Pain Assessment Pain When Pain Assessed During Mobility Pain Present Pain Present Pain Reported Location Back Intensity 4 Scale Used Numeric (0 - 10) Description Aching,Radiating Pain Behaviors Wincing Pain Management Techniques Re-positioning,Timing of Activity with Medications M4 PT-IP Mobility and Gait Start: 08/28/20 16:37 Freq: NEEDED Status: Active Protocol: Document 08/30/20 10:20 DLM (Rec: 08/30/20 13:06 DL [id number]) PT-Bed Mobility Assessment Scooting Scooting to Edge of Bed Standby Assistance PT-Transfer Assessment Sit to and From Stand Sit to and from Stand Contact Guard Assistance, Minimal Assistance,Use of Upper Extremities Equipment Transfer Assistive Device Gait Belt,Front Wheeled Walker Transfers Transfer Destination Chair,Bedside Commode Transfer Technique Stand Step Pivot Transfer Ability Level of Assist Contact Guard Assistance, Minimal Assistance Comments Mobility Comments Pt up in recliner at the start of this visit and wants to stay up. She needs a lot of cuing to push up from the chair with her UE's and to reach back to the armrest before sitting. Pt tries to pull herself up with the fWW. She needs help with toileting including her pants and to wipe. Gait Assessment Gait Gait Assistance Required: Contact Guard Assist,Minimum Assistance Distance (Feet) 20 Assistive Devices Assistive Device Gait Belt,Front Wheeled Walker Gait Deviations General Gait Pattern Decreased Stride Length Factors Limiting Gait Function Factors Limiting Gait Function Decreased Activity Tolerance, Decreased Strength,Pain Comments Gait Comments She moves slowly today during all mobility/gait. She describes numbness/tingling down her LE's to the knee level bilaterally when up moving. She fatigues quickly with activity and became very drowsy when back in recliner. Noted her O2 sats drop as low as 85% when she falls asleep. Notified her nurse who placed her back on oxygen. Pt reports no hx of known sleep apnea. PT-Balance Assessment Sitting Balance and Reactions Static Sitting Balance Ability Good Dynamic Sitting Balance Ability Good Standing Balance and Reactions Static Standing Balance Ability Fair Dynamic Standing Balance Ability Fair Device Used FWW Comments Other Balance Tests/Deviations/Treatment her back pain interferes with : her ability to balance M5 PT-IP Objective Assessments Start: 08/28/20 16:37 Freq: NEEDED Status: Active Protocol: Document 08/30/20 10:20 DLM (Rec: 08/30/20 13:06 [facility] [id number]) Orientation Orientation/Cognition Level of Alertness Alert Orientation Name,Birthday,Date,Place, Situation Language Function Ability No Deficits Noted Safety Awareness Decreased Safety Awareness Memory Description Short Term Impaired Comments slow mental processing noted which her Spouse reports was better earlier this morning and getting worse as she fatigues M6 PT-IP Treatment Start: 08/28/20 16:37 Freq: NEEDED Status: Active Protocol: Document 08/30/20 10:20 DLM (Rec: 08/30/20 13:06 DL [id number]) Physical Therapy Treatment Exercises Exercises Ankle Pumps Education Education Provided Precautions,Safety Other Treatments Other Treatment Performed Her Spouse was present and observed during this visit M7 PT-IP Assessment and Plan Start: 08/28/20 16:37 Freq: NEEDED Status: Active Protocol: Document 08/30/20 10:20 DLM (Rec: 08/30/20 13:06 DLM [id number]) PT Summary Assessment and Plan Summary Impairments Pain,ROM,Strength,Balance, Coordination,Sensation,Tone, Cognition,Bed Mobility, Transfers,Gait,Activity Tolerance Progress Towards Goals Slow Progress due to Medical Issues Assessment Summary Sanna reports feeling better today. Nursing reports she got up with less assistance this morning. Her Spouse is present today. Pt was able to get up to use bedside commode to urinate in walk her her room this visit. She verbalized decreased awareness of her current functional limitations . Pt up to recliner today. She got drowsy after activity and was falling asleep in the recliner. Noted drop in O2 sats and nursing placed pt back on oxygen. Pt and her Spouse continue to want to plan for home at discharge. Her Spouse is aware that pt needs to continue to progress to be safe to return home. At this time I feel SNF rehab would be the safest choice but will continue to assess this as she progresses. Goals Bed Mobility Goal Standby Assistance Transfer Goal Standby Assistance,Front Wheeled Walker Gait Goal Standby Assistance,Front Wheel Walker Gait Distance 150 Other Goals ambulation using standard walker 150 ft SBA up/down 2 steps CGA using tripod cane/SPC Days to Meet Goals 5 Frequency of Treatment Frequency Of Treatment Twice a Day Treatment Plan Physical Therapy Treatment Plan Bed Mobility Training,Transfer Training,Gait Training, Therapeutic Exercise,Balance Retraining,Post Op Education, Discharge Planning,Hot or Cold Pack,Neuromuscular Re-ed Other Recommendations and Next Treatment slowly progress gait as Focus tolerated Precautions Lumbar Precautions Log Roll,No Twisting,Limit Bending,Lifting Restriction of 10 lbs,Gait Belt above Incisional Area Recommendations To Nursing Amount of Assist Needed 1 Person Assist Discharge Recommendations PT Discharge Recommendations Home vs SNF Transportation Needs at Discharge Private Vehicle
[2020-08-30 10:38] LABS: Clostridium Difficile Tox PCR Negative for C. diff (Negative)
--- NOTE | 2020-08-30 14:36 | PC.NURSE ---
Pt up to br from bed to void with SBA-right knee a little bit weak but able to stand on second attempt. Walked from bathroom to ICU and back to chair with SBA. Steady on her feet and followed back precautions. States pain is 1/10 after walking.
--- NOTE | 2020-08-30 14:54 | CM.DPC ---
DCP: continued. Met again as planned with pt and her Paul. Spoke later with PT Lilli. Pt and Gene continue to be hopeful that she will improve each day and be able to d/c to home. Gene does say best to start the plan B snf just in case. Vaccine status: pt is not vaccinated against COVID-19. Discussed Medicare snf list and discussed [facility] Medicare process. Agreed [facility] they are contracted with this insurance. Will fax both now. Both are aware this is only a Plan B. Did speak with PT Lilli who stated that pt was progressing. She agreed pt would be best in the home setting but that she might need an extra day in the hospital to accomplish same. Pt and Gene, as noted prior, do have a physician friend coming to stay with them on Monday. DCP team will continue to follow. Will not do [facility] as it is far from certain the pt will end up with a d/c to snf.
[2020-08-30] MEDS: OXYCODONE IR 5 MG TABLET PO ×2 (15:50→16:20)
--- NOTE | 2020-08-30 16:06 | PC.NURSE ---
Addendum entered by Manju Taylor R.N. 08/30/20 21:55: Pt med @ 2010 for discomfort. Resting quietly @ this time Pt prefers to sleep in chair. Satisfactory post op course. Call light w/in reach., chair alarm on for pt safety. Original Note: Pt resting at this time. Med w/oxycodone at 1555for discomfort. Lungs CTA/ SpO2 96% RA. Dsg to mid back w/old shadow drainage noted. HL RFA intact/patent. Call light w/in reach, family in room at this time.
--- NOTE | 2020-08-30 17:09 | PT.IPTN ---
Current Diagnoses Spondylolisthesis, lumbar region (08/28/20) Spinal stenosis, lumbar region with neurogenic claudication (08/28/20) Other specified postprocedural states (08/28/20) Surgery Performed Operation Date: 08/28/20 07:45 Actual Procedures p L3-4, L4-5, L5-S1 TLIF with posterior instrumentation - Brianna Mills MD Physical Therapy Treatment Note M2 PT-IP Current Condition Start: 08/28/20 16:37 Freq: NEEDED Status: Active Protocol: Document 08/28/20 15:30 AB (Rec: 08/28/20 16:51 AB [id number]) Physical Therapy Current Condition Current Condition Evaluation Date 08/28/20 Treatment Diagnosis s/p L3-4, L4-5, L5S1 fusion/ lami; difficulty in walking Onset Date 08/28/20 Precautions Lumbar Precautions Log Roll,No Twisting,Limit Bending,Lifting Restriction of 10 lbs,Gait Belt above Incisional Area M3 PT-IP Subjective Start: 08/28/20 16:37 Freq: NEEDED Status: Active Protocol: Document 08/30/20 17:09 DLM (Rec: 08/30/20 17:27 [facility] [id number]) Subjective Physical Therapy Visit Type Visit Start Time 16:52 Visit Stop Time 17:09 Total Visit Minutes 17 Number of SHARK BIOLOGIST Visits 0 Physical Therapy Visit Comments Patient Comments She describes her legs as feeling weak when walking Patient Goals Discharge home Therapy Pain Assessment Pain When Pain Assessed During Mobility Pain Present Pain Present Pain Reported Location Back Intensity 5 Scale Used Numeric (0 - 10) Description Aching,Radiating Pain Behaviors Guarding,Wincing Pain Management Techniques Re-positioning M4 PT-IP Mobility and Gait Start: 08/28/20 16:37 Freq: NEEDED Status: Active Protocol: Document 08/30/20 17:09 DLM (Rec: 08/30/20 17:27 [facility] [id number]) PT-Transfer Assessment Sit to and From Stand Sit to and from Stand Contact Guard Assistance, Minimal Assistance,Use of Upper Extremities Equipment Transfer Assistive Device Gait Belt,Front Wheeled Walker Transfers Transfer Destination Chair Transfer Technique Stand Step Pivot Transfer Ability Level of Assist Contact Guard Assistance, Minimal Assistance,Use of Upper Extremities Comments Mobility Comments She is up in recliner and wants to stay up for dinner. She has difficulty transitioning her hands from the recliner to the FWW during sit-stand. She moves slowly with all mobility. She needs mod/max assist to scoot back in the recliner for positioning. She has been reluctant to go back to bed today reporting she does not like the bed and is more comfortable in the recliner. Gait Assessment Gait Gait Assistance Required: Contact Guard Assist,Minimum Assistance Distance (Feet) 80 Assistive Devices Assistive Device Gait Belt,Front Wheeled Walker Gait Deviations General Gait Pattern Decreased Stride Length Factors Limiting Gait Function Factors Limiting Gait Function Decreased Activity Tolerance, Decreased Strength,Pain Comments Gait Comments Her pace of gait is slow, intermittently she needs assist to move the fWW around obstacles. She needs cuing to fully back up to the chair and align herself with the chair before sitting down. PT-Balance Assessment Sitting Balance and Reactions Static Sitting Balance Ability Good Dynamic Sitting Balance Ability Fair Standing Balance and Reactions Static Standing Balance Ability Fair Dynamic Standing Balance Ability Fair Device Used FWW M5 PT-IP Objective Assessments Start: 08/28/20 16:37 Freq: NEEDED Status: Active Protocol: Document 08/30/20 10:20 DLM (Rec: 08/30/20 13:06 [facility] [id number]) Orientation Orientation/Cognition Level of Alertness Alert Orientation Name,Birthday,Date,Place, Situation Language Function Ability No Deficits Noted Safety Awareness Decreased Safety Awareness Memory Description Short Term Impaired Comments slow mental processing noted which her Spouse reports was better earlier this morning and getting worse as she fatigues M6 PT-IP Treatment Start: 08/28/20 16:37 Freq: NEEDED Status: Active Protocol: Document 08/30/20 17:09 DLM (Rec: 08/30/20 17:27 [facility] [id number]) Physical Therapy Treatment Exercises Exercises Ankle Pumps Education Education Provided Precautions,Safety Other Treatments Other Treatment Performed Her Spouse is present and observed treatment M7 PT-IP Assessment and Plan Start: 08/28/20 16:37 Freq: NEEDED Status: Active Protocol: Document 08/30/20 17:09 DLM (Rec: 08/30/20 17:27 [facility] [id number]) PT Summary Assessment and Plan Summary Impairments Pain,ROM,Strength,Balance, Coordination,Sensation,Tone, Cognition,Bed Mobility, Transfers,Gait,Activity Tolerance Progress Towards Goals Slow Progress due to Activity Tolerance Assessment Summary Sanna is alert but continues to have slow mental processing today. She was able to increase her distance of gait this visit. She has been up in the recliner a lot today. Her Spouse is very supportive. LE weakness functionally and back pain continue to be limiting factors for her mobility and gait. Goals Bed Mobility Goal Standby Assistance Transfer Goal Standby Assistance,Front Wheeled Walker Gait Goal Standby Assistance,Front Wheel Walker Gait Distance 150 Other Goals ambulation using standard walker 150 ft SBA up/down 2 steps CGA using tripod cane/SPC Days to Meet Goals 5 Frequency of Treatment Frequency Of Treatment Twice a Day Treatment Plan Physical Therapy Treatment Plan Bed Mobility Training,Transfer Training,Gait Training, Therapeutic Exercise,Balance Retraining,Post Op Education, Discharge Planning,Hot or Cold Pack,Neuromuscular Re-ed Other Recommendations and Next Treatment slowly progress gait as Focus tolerated Precautions Lumbar Precautions Log Roll,No Twisting,Limit Bending,Lifting Restriction of 10 lbs,Gait Belt above Incisional Area Recommendations To Nursing Amount of Assist Needed 1 Person Assist Discharge Recommendations PT Discharge Recommendations Home vs SNF Transportation Needs at Discharge Private Vehicle
[2020-08-31 00:05] VITALS: BP 144/70; PULSE 98; RESP 18; TEMP 36.3; O2SAT 94
[2020-08-31] MEDS: OXYCODONE IR 5 MG TABLET 10 MG PO ×3 (01:23→09:27)
[2020-08-31] MEDS: hydrOXYzine pamoate 25 MG CAPSULE PO ×2 (01:28→05:53)
[2020-08-31 05:00] VITALS: BP 122/50; PULSE 90; RESP 18; TEMP 36.2; O2SAT 97
--- NOTE | 2020-08-31 07:30 | PM.PNPO.1 ---
Subjective Subjective Date Patient Seen: 08/31/20 Time Patient Seen: 07:31 Interval history: Patient states she is doing well overall and is in mild discomfort at rest. At this time she denies fever, chills, nausea, chest pain, or shortness of breath. Patient reports good sensation throughout the bilateral lower extremities. Exam Vital Signs (past 8 hours): - 08/31/20 00:05 08/31/20 05:00 Temperature 97.4 F L 97.2 F L Pulse Rate 98 H 90 Respiratory Rate 18 18 Blood Pressure 144/70 H 122/50 L Pulse Oximetry 94 97 Oxygen Delivery Method Room Air,Nasal Cannula Oxygen Flow Rate 0 Narrative Exam Narrative: 75-year-old female postop day 3. Patient is resting comfortably in bed, is in no acute distress, is alert and oriented x3. Skin is warm and dry, and the skin surrounding the incision site is free of erythema, warmth, induration, or discharge. Dressing over the incision site is clean, dry, and intact. Good sensation appreciated throughout the bilateral lower extremities to light touch. Ankle dorsiflexion, plantar flexion, eversion, inversion performed bilaterally without difficulty or discomfort. Calves are soft and nontender, negative Homans sign. No other signs of DVT appreciated. Patient appeared confused when she was asked about her progress with physical therapy. Const General: cooperative, healthy appearing and comfortable Resp Effort & Inspection: normal respiratory effort and able to speak in complete sentences Skin General: no rashes or lesions noted Objective Labs Result Diagrams: 08/29/20 05:04 Labs: Laboratory Results - last 24 hr 08/30/20 09:30 C. difficile Tox (PCR) Negative for c. diff [facility] Medical History Arthritis Chronic pain Diabetes Diarrhea Facet arthropathy, lumbosacral Foraminal stenosis of lumbar region History of meniscal tear (~2008) History of Mohs micrographic surgery for skin cancer (12/2017) Hyperlipidemia Hypertension Joint pain Liver metastasis Melanoma of right upper arm (~1980) Pilonidal cyst Rattlesnake bite (~1983) Spondylolisthesis at L4-L5 level Surgical History H/O hernia repair (01/2017) H/O lateral meniscus repair of left knee H/O right hemicolectomy (~11/2015) History of abdominal surgery (~06/2016) History of appendectomy History of breast biopsy History of cholecystectomy (06/2016) History of colonoscopy History of laminectomy (2012) History of partial knee replacement (2011) History of radial keratotomy (~1988) History of surgery (1980) History of surgery (~06/2016) Hx of ventral hernia repair (12/2017) S/P epidural steroid injection S/P foot surgery, right Social History household members: spouse Smoking Status: Former smoker alcohol intake: never Assessment & Plan Post-op Postoperative Procedures: Procedures Operation Date: 08/28/20 07:45 Actual Procedure Side Surgeon p L3-4, L4-5, L5-S1 TLIF with posterior instrumentation Brianna Mills MD Postoperative day: 3 Postoperative status: doing well Postoperative plan: ambulate Postoperative plan narrative: Patient is to continue working on ambulation and mobility with physical therapy with the assistance of a front wheeled walker. She is to avoid bending, twisting, or lifting. Current pain management regimen is to be continued as it is adequately controlled the patient's pain level. We will continue to monitor patient's progress with physical therapy. Pending successful work with PT discharge home versus longterm facility possibly today or tomorrow. Quality VTE Deep Vein Thrombosis/Pulmonary Embolism Present on Admission: No
[2020-08-31 08:00] VITALS: BP 111/50; PULSE 96; RESP 19; TEMP 37.2; O2SAT 91
[2020-08-31 09:07] VITALS: O2SAT 91
[2020-08-31] MEDS: DOCUSATE 100 MG CAPSULE PO (09:24)
[2020-08-31] MEDS: FLUoxetine 20 MG CAPSULE PO (09:24)
[2020-08-31] MEDS: GABAPENTIN 300 MG CAPSULE PO (09:24)
[2020-08-31] MEDS: SODIUM CHLORIDE 0.9% FLUSH 10 ML IV (09:25)
[2020-08-31] MEDS: VITAMIN E 400 UNIT CAPSULE PO (09:25)
[2020-08-31] MEDS: MULTIVITAMIN 1 TABLET 1 TAB PO (09:25)
[2020-08-31] MEDS: METFORMIN HCL 500 MG TABLET 1000 MG PO (09:25)
--- NOTE | 2020-08-31 09:55 | OT.IP.TRT ---
Current Diagnoses Spondylolisthesis, lumbar region (08/28/20) Spinal stenosis, lumbar region with neurogenic claudication (08/28/20) Other specified postprocedural states (08/28/20) Surgery Performed Operation Date: 08/28/20 07:45 Actual Procedures p L3-4, L4-5, L5-S1 TLIF with posterior instrumentation - Brianna Mills MD Occupational Therapy Treatment Note M2 OT-IP Current Condition Start: 08/29/20 10:58 Freq: Status: Active Protocol: Document 08/29/20 10:59 CGR (Rec: 08/29/20 11:10 CGR [id number]) Occupational Therapy Current Condition Current Condition Evaluation Date 08/29/20 Treatment Diagnosis L3-5 TLIF Diagnosis Onset Date 08/28/20 Post Operative Precautions Lumbar Precautions Log Roll,No Twisting,Limit Bending,Lifting Restriction of 10 lbs,Gait Belt above Incisional Area M3 OT- IP Subjective and Pain Start: 08/29/20 10:58 Freq: Status: Active Protocol: Document 08/31/20 10:53 CGR (Rec: 08/31/20 11:03 CGR [id number]) OT- Subjective Occupational Therapy Visit Type Type Progress Note Visit Start Time 09:00 Visit Stop Time 09:55 Total Visit Minutes 55 Occupational Therapy Visit Comments Patient Comments I think I can go home with my today. Patient/Caregiver Goals I think we can care for her at home. OT Pain Assessment Pain When Pain Assessed During Mobility Pain Present Pain Present Pain Reported Location Back Intensity 6 Scale Used Numeric (0 - 10) Management Techniques Distraction,Modification of Treatment,Re-positioning, Timing of Activity with Medications M4 OT- IP ADL's Start: 08/29/20 10:58 Freq: Status: Active Protocol: Document 08/31/20 10:53 CGR (Rec: 08/31/20 11:03 CGR [id number]) OT [id number] General Evaluation Self-Feeding Ability Independent Comments OT Self-Feeding Comments breakfast OT ADL-Grooming Comments OT Grooming Comments Not performed OT ADL-Oral Care Comments Oral Care Comments Not performed OT ADL-Dressing Comments OT Dressing Comments not performed, family prefered to focus on functional mobility during this session. OT ADL-Toileting General Evaluation Toileting Ability Moderate Assistance Areas Needing Assistance Manage Clothing Comments OT Toileting Comments Pt is able to perform pericare but needs assist getting brief down and up OT ADL-Bathing Comments OT Bathing Comments Not performed but discussed showering at home and educated on how to get in and out of the small shower at home. Pt and agreed that pt can do sink bathing till she is more steady with her mobility. M5 OT- IP IADL's Start: 08/29/20 10:58 Freq: Status: Active Protocol: Document 08/29/20 10:59 CGR (Rec: 08/29/20 11:10 CGR [id number]) OT-Instrumental Activities of Daily Living Deficits IADL Deficits Identified No Deficits Home Safety Awareness Awareness of Need for Assistance at Home Good Awareness Ability to Problem Solve Emergency Able to Problem Solve Situations Medication Management Medication Management No Deficits Identified Money Management Money Management No Deficits Identified Meal Preparation Meal Preparation Caregiver Provides Assist Digestion Operator Digestion Operator Caregiver Provides Assist Driving Driving Comments 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 M6 OT- IP Functional Cognition Start: 08/29/20 10:58 Freq: Status: Active Protocol: Document 08/31/20 10:53 CGR (Rec: 08/31/20 11:03 CGR [id number]) Cognitive Factors Limiting Selfcare Function Cognitive Ability Level of Alertness Alert,Confusional State Patient Orientation Name,Age,Birthday,Month,Date, Year,Day of Week,Place, Situation Attention Span Ability Capable of Focused Attention, Unable to Sustain Attention Ability to Follow Commands Able to Follow One Step Commands with Increased Time, Able to Follow One Step Commands with Repetition Cognitive Comments Cognitive Assessment Comments Pt is able to follow commands but needs extra time for cognitive processing and per pt will sometimes say things that make no sense. Discussed with with pt and and educated them on impact of pain medication and need to make MD aware at their next visit if cognition has not cleared. OT- Vision and Hearing OT- Hearing Assessment OT- Hearing Assessment WFL OT- Vision Assessment Visual Acuity Glasses All The Time Visual Attentiveness WFL Occular Pursuits WFL Visual Convergence WFL Vision Assessment Comments Pt wears bifocals M7 OT- IP Mobility and Balance Start: 08/29/20 10:58 Freq: Status: Active Protocol: Document 08/31/20 10:53 CGR (Rec: 08/31/20 11:03 CGR [id number]) OT- Bed Mobility Assessment Rolling Type of Rolling Log Rolling Level of Assistance Moderate Assistance Supine to Sit Supine to Sit Assist Moderate Assistance Sit to Supine Sit to Supine Assist Moderate Assistance Scooting Scooting to Edge of Bed Maximum Assistance OT-Transfer Assessment Sit to and From Stand Sit to and from Stand Contact Guard Assistance Transfers Transfer Ability Contact Guard Assistance Technique Transfer Destination Bed,Chair,Toilet Transfer Technique Stand Step Pivot Devices Transfer Assistive Devices Gait Belt,Front Wheeled Walker Comments Mobility Comments Practiced bed mobility with pt and . Pt's was able to help pt get in and out of bed on her right side. Requested that P.T. review again with pt and today. OT- Gait Assessment Gait Gait Assistance Required: Contact Guard Assist Assistive Devices Assistive Device Gait Belt,Front Wheeled Walker Comments Gait Ability Comments mobility around the room. OT- Balance Assessment Sitting Balance and Reactions Static Sitting Balance Ability Good M8 OT- IP Objective Assessments Start: 08/29/20 10:58 Freq: Status: Active Protocol: Document 08/29/20 10:59 CGR (Rec: 08/29/20 11:10 CGR [id number]) OT Gross Range of Motion Upper Extremity Range of Motion Assessment Within Functional Limits OT Strength Upper Extremity Strength Assessment Within Functional Limits OT- Coordination Assessment Upper Extremity Finger to Nose Test Within Functional Limits Finger Tapping Test Within Functional Limits OT-Muscle Tone Assessment Muscle Tone WNL Yes OT Sensation Assessment Edema Edema Absent M9 OT- IP Assessment and Plan Start: 08/29/20 10:58 Freq: Status: Active Protocol: Document 08/31/20 10:53 CGR (Rec: 08/31/20 11:03 CGR [id number]) OT Summary Assessment and Plan Potential Rehabilitation Potential Excellent Analytic Complexity at Evaluation Moderate Summary OT Impairments Pain,Balance,Functional Cognition,Functional Mobility, Grooming,Dressing,Toileting, Bathing,Toilet Transfers, Shower Transfers,Activity Tolerance Progress Towards Goals Slow Progress due to Pain Assessment Summary Pt presents as a moderate complexity evaluation s/p admit for L3-S1 TLIF. Pt is progressing with therapy and her mobility has improved. Pt still needs mod to max a for bed mobility but it appears that the pt's is able to assist for a home discharge . Requested that case management provide spouse with private home care agency information incase they need more help. Pt would benefit from SNF but would like to discharge home. Of note, pt's cognition is still poor since sx. Goals Grooming Goal Independent Dressing Goal Independent Toileting Goal Independent Bathing Goal Independent Toilet Transfer Goal Independent Days to Meet Goals 15 Frequency of Treatment Frequency Of Treatment Once a Day Treatment Plan OT Treatment Plan ADL Training,Functional Cognition Training,Functional Mobility,Patient/Family Education,Discharge Planning Other Treatment Recommendations and Next ADLs standing if pt is able to Treatment Focus tolerate, bed mobility Discharge Recommendations OT Discharge Recommendations Home with Assistance,SNF Rehab Transportation Needs at Discharge Private Vehicle,Wheelchair/ Cabulance
--- NOTE | 2020-08-31 10:10 | PM.DS.1 ---
History of Present Illness History of Present Illness Date Patient Seen: 08/31/20 Time Patient Seen: 10:11 Chief complaint: Translaminar Interbody Fusion/Laminotomy Narrative: See progress note Discharge Providers Provider Date of admission: 08/28/20 06:29 Discharge Date: 08/31/20 Primary care physician: Kimberly Cho MD Consults: 08/28/20 14:32 Consult to Occupational Therapy Evaluate & Treat Comment: Physician Instructions: Evaluate and treat Consult to Physical Therapy Evaluate & Treat Comment: Physician Instructions: Evaluate and Treat Discharge provider: Godfrey Eli PA-C Summary Hospital Course Discharge Diagnosis: 1. L3-4, L4-5, L5-S1 spondylolisthesis 2. L3-4, L4-5, L5-S1 spinal stenosis 3. L3-S1 spondylosis with radiculopathy Post-op diagnosis: same Hospital Course: 1. L3-4, L4-5, L5-S1 Postero-lateral and posterior interbody fusion 2. L3-4, L4-5, L5-S1 interbody cage placement. 3. L3-4, L4-5, L5-S1 decompressive laminectomy with bilateral facetecomies 4. L3-4, L4-5, L5-S1 Posterior segmental instrumentation 5. [place] of bone marrow from iliac crest 6. Utilization of microsurgical technique and operating microscope Same procedure as scheduled: Yes Indications: Patient has been having chronic back pain and worsening lumbar radiculopathy. Patient failed multiple conservative management with worsening pain weakness and numbness in her lower extremity. Patient has been having difficulty performing activity of daily living. After discussing risks benefits of treatment options, patient elected proceed with surgery. Surgeon: Brianna Mills Senior [employer] Parachutist: Da [place] Click Yes if Unassisted: No Anesthesia Type: General Operative Notes Closure Type: primary Specimen(s): none sent Prosthetic devices, grafts, tissues, transplants, or devices: Globus revolve screws, Rise cages Applied: catheter Estimated Blood Loss (mL): 100 Blood products transfused: none Status at Discharge Cognitive/behavioral status at discharge: at baseline, oriented Functional status at discharge: uses cane/walker Overall status at discharge: patient is progressing back to baseline Time Spent with Patient Time spent: Less than 30 minutes Exam Vital Signs (past 8 hours): - 08/31/20 05:00 08/31/20 08:00 08/31/20 09:07 Temperature 97.2 F L 99.0 F Pulse Rate 90 96 H Respiratory Rate 18 19 Blood Pressure 122/50 L 111/50 L Pulse Oximetry 97 91 91 Oxygen Delivery Method Room Air Oxygen Flow Rate 0 Narrative Exam Narrative: See progress note Objective Labs Result Diagrams: 08/29/20 05:04 Labs: Laboratory Results - last 24 hr 08/30/20 09:30 C. difficile Tox (PCR) Negative for c. diff PFSH Medical History Arthritis Chronic pain Diabetes Diarrhea Facet arthropathy, lumbosacral Foraminal stenosis of lumbar region History of meniscal tear (~2008) History of Mohs micrographic surgery for skin cancer (12/2017) Hyperlipidemia Hypertension Joint pain Liver metastasis Melanoma of right upper arm (~1980) Pilonidal cyst Rattlesnake bite (~1983) Spondylolisthesis at L4-L5 level Surgical History H/O hernia repair (01/2017) H/O lateral meniscus repair of left knee H/O right hemicolectomy (~11/2015) History of abdominal surgery (~06/2016) History of appendectomy History of breast biopsy History of cholecystectomy (06/2016) History of colonoscopy History of laminectomy (2012) History of partial knee replacement (2011) History of radial keratotomy (~1988) History of surgery (1980) History of surgery (~06/2016) Hx of ventral hernia repair (12/2017) S/P epidural steroid injection S/P foot surgery, right Social History household members: spouse Smoking Status: Former smoker alcohol intake: never Discharge Assessment & Plan Assessment and Plan Assessment: Patient progressing and will be discharged home today with home health services. Plan of Treatment: Limit bending, twisting, lifting. Discharge home today with home health services. Discharge Plan Discharge Plan Patient Disposition: Home Health Service Discharge orders & Medications Prescriptions: New oxycodone 5 mg tablet 5 mg PO Q4H PRN (Reason: pain) Qty: 60 RF: 0 acetaminophen 325 mg Tablet 650 mg PO Q6HR PRN (Reason: Pain, Mild (1-3)) Qty: 60 RF: 0 docusate sodium [DOK] 100 mg Capsule 100 mg PO BID Qty: 30 RF: 0 oxycodone 5 mg Tablet 10 mg PO Q3HR PRN (Reason: Pain, Severe (7-10)) Qty: 60 RF: 0 hydroxyzine pamoate 25 mg Capsule 25 mg PO Q4HR PRN (Reason: Nausea And Vomiting) Qty: 30 RF: 0 Continued [id number] [id number]-ophofwzm [id number] vk-cz-lo-unit Tablet 1 tab PO DAILY Qty: 0 RF: 0 vitamin E 400 unit Capsule 400 unit PO DAILY Qty: 0 RF: 0 cinnamon bark [Cinnamon] 500 mg Capsule 1,000 mg PO DAILY Qty: 0 RF: 0 glucosamine sulfate 1,000 mg Capsule 1,000 mg PO BID Qty: 0 RF: 0 celecoxib 200 mg capsule See Rx Instructions .ROUTE .COMPLEX Qty: 90 RF: 1 methocarbamol 500 mg Tablet 500 mg PO QD-BID PRN (Reason: Back Pain) RF: 0 loperamide 2 mg Capsule 2 mg PO TID-QID RF: 0 metformin 500 mg Tablet 1,000 mg PO BID RF: 0 fluoxetine 20 mg Capsule 20 mg PO DAILY RF: 0 chromium picolinate 1,000 mcg tablet 1,000 mcg PO DAILY RF: 0 gabapentin 300 mg capsule 300 mg PO TID RF: 0 multivitamin Capsule 1 cap PO DAILY RF: 0 Glucose: Test Strips strip 0 applic Not Applicable ACHS RF: 0 zinc 50 mg tablet 50 mg PO DAILY RF: 0 ivermectin 3 mg tablet 18 mg PO DAILY RF: 0 vitamin B complex [B Complex-Vitamin B12] tablet 1 tab PO DAILY RF: 0 alpha lipoic acid 600 mg capsule 600 mg PO ONCE RF: 0 melatonin 10 mg capsule 10 mg PO BEDTIME PRN (Reason: Insomnia) RF: 0 Follow up/Referrals: Brianna Mills MD [Physician] - (2 weeks) Kimberly Cho MD [Primary Care Provider] - Diet/Activity/Treatments Diet: Diet as Tolerated Activity: Limit bending, twisting and lifting Skin/Wound/Dressing Care Report to your healthcare provider any signs of infection, such as:: chills, fever, night sweats, unusual drainage and unusual redness Dressing: Keep dressing clean dry intact. May shower starting tomorrow with dressing covered and kept dry. Visit Report/Discharge Packet Instructions: DI for Prescription Opioid Use, DI for Transforaminal Lumbar Interbody Fusion Stand Alone Forms: Surgery Discharge Discharge Data Primary Care Provider: Kimberly Cho VTE Deep Vein Thrombosis/Pulmonary Embolism Present on Admission: No
--- NOTE | 2020-08-31 10:47 | PC.NURSE ---
Addendum entered by Akilah Aparicio R.N. 08/31/20 13:05: Patient escorted out to private vehicle with at 1150 a.m. Original Note: Pt A&Ox3, pleasant slightly forgetful. Pt ambulating this a.m. with x1 assist using FWW. VSS, afebrile on RA. Pt needs reminding to call for assistance with urgency to bathroom. at bedside this a.m. discussing with therapist safety precautions. Dressing C/D/I with shadow drainage. Pt verbalizes good pain control. Noted good po intake. Voing and +BM this a.m. without difficulty. Pt and with preference to go home with out-patient home therapy. Reviewed discharge instructions with patient and spouse, who acknowledge and agree with POC and discharge with follow up. They verbalize understanding of medications, site care, s/s of worsening symptoms, activity. Pt escorted via w/ch to private car with , all of her belongings and prescriptions.
--- NOTE | 2020-08-31 11:28 | PT.IPTN ---
Current Diagnoses Spondylolisthesis, lumbar region (08/28/20) Spinal stenosis, lumbar region with neurogenic claudication (08/28/20) Other specified postprocedural states (08/28/20) Surgery Performed Operation Date: 08/28/20 07:45 Actual Procedures p L3-4, L4-5, L5-S1 TLIF with posterior instrumentation - Brianna Mills MD Physical Therapy Treatment Note M2 PT-IP Current Condition Start: 08/28/20 16:37 Freq: NEEDED Status: Active Protocol: Document 08/28/20 15:30 AB (Rec: 08/28/20 16:51 AB [id number]) Physical Therapy Current Condition Current Condition Evaluation Date 08/28/20 Treatment Diagnosis s/p L3-4, L4-5, L5S1 fusion/ lami; difficulty in walking Onset Date 08/28/20 Precautions Lumbar Precautions Log Roll,No Twisting,Limit Bending,Lifting Restriction of 10 lbs,Gait Belt above Incisional Area M3 PT-IP Subjective Start: 08/28/20 16:37 Freq: NEEDED Status: Active Protocol: Document 08/31/20 11:28 DLM (Rec: 08/31/20 12:48 DLM [id number]) Subjective Physical Therapy Visit Type Type Treatment Note Visit Start Time 10:34 Visit Stop Time 11:28 Total Visit Minutes 54 Number of FORMULA CHECKER Visits 0 Physical Therapy Visit Comments Patient Comments She describes feeling sleepy today. Her Spouse reports a hx of pain medication making her sleepy after prior surgeries. Her Spouse is able to assist her at home. Patient Goals Return home with her Therapy Pain Assessment Pain When Pain Assessed After Treatment Pain Present Pain Present Pain Reported Location Back Intensity 2 Scale Used Numeric (0 - 10) Description Aching,With Movement Pain Behaviors Guarding,Wincing Pain Management Techniques Re-positioning,Timing of Activity with Medications M4 PT-IP Mobility and Gait Start: 08/28/20 16:37 Freq: NEEDED Status: Active Protocol: Document 08/31/20 11:28 DLM (Rec: 08/31/20 12:48 DLM [id number]) PT-Bed Mobility Assessment Rolling Type of Rolling Log Rolling,Bilateral Level of Assist Minimal Assistance,Moderate Assistance Supine to Sit Supine to Sit Minimal Assistance,Moderate Assistance,Bedrails Sit to Supine Sit to Supine Moderate Assistance,Bedrails Scooting Scooting to Edge of Bed Minimal Assistance,Moderate Assistance Scooting Up and Down in Bed Dependent PT-Transfer Assessment Sit to and From Stand Sit to and from Stand Minimal Assistance,Use of Upper Extremities Equipment Transfer Assistive Device Gait Belt,Front Wheeled Walker Transfers Transfer Destination Bed,Chair Transfer Technique Stand Step Pivot Transfer Ability Level of Assist Contact Guard Assistance, Minimal Assistance,Use of Upper Extremities Comments Mobility Comments She gets drowsy during mobility and needs cuing to stay alert, she needs verbal instructions and physical cuing throughout mobility for safe technique Gait Assessment Gait Gait Assistance Required: Contact Guard Assist Distance (Feet) 85 Assistive Devices Assistive Device Gait Belt,Front Wheeled Walker Gait Deviations General Gait Pattern Decreased Stride Length, Decreased Feet Clearance Factors Limiting Gait Function Factors Limiting Gait Function Decreased Activity Tolerance, Decreased Sensation,Decreased Strength,Limited Range of Motion,Pain Comments Gait Comments Her pace of gait is very slow with short stride lengths, her feet clearance gets worse as she fatigues, she has limited awareness of her current activity limits, intermittently she needs help to move the FWW around obstacles Stair Climbing Assessment Comments Stair Climbing Comments they will be staying in the day basement and will have no steps to enter the house nor steps inside the house PT-Balance Assessment Sitting Balance and Reactions Static Sitting Balance Ability Good Dynamic Sitting Balance Ability Fair Standing Balance and Reactions Static Standing Balance Ability Fair Dynamic Standing Balance Ability Fair Device Used FWW Comments Other Balance Tests/Deviations/Treatment her back pain interferes with : her ability to balance M5 PT-IP Objective Assessments Start: 08/28/20 16:37 Freq: NEEDED Status: Active Protocol: Document 08/30/20 10:20 DL (Rec: 08/30/20 13:06 [facility] [id number]) Orientation Orientation/Cognition Level of Alertness Alert Orientation Name,Birthday,Date,Place, Situation Language Function Ability No Deficits Noted Safety Awareness Decreased Safety Awareness Memory Description Short Term Impaired Comments slow mental processing noted which her Spouse reports was better earlier this morning and getting worse as she fatigues M6 PT-IP Treatment Start: 08/28/20 16:37 Freq: NEEDED Status: Active Protocol: Document 08/31/20 11:28 DLM (Rec: 08/31/20 12:48 [facility] [id number]) Physical Therapy Treatment Exercises Exercises Ankle Pumps Education Education Provided Precautions,Safety Other Treatments Other Treatment Performed Training performed with her Spouse so he can physically assist her at home, he shows good understanding of her back precautions, he is concerned about how drowsy she gets during mobility today M7 PT-IP Assessment and Plan Start: 08/28/20 16:37 Freq: NEEDED Status: Active Protocol: Document 08/31/20 11:28 DLM (Rec: 08/31/20 12:48 DLM [id number]) PT Summary Assessment and Plan Summary Impairments Pain,ROM,Strength,Balance, Coordination,Sensation,Tone, Cognition,Bed Mobility, Transfers,Gait,Activity Tolerance Progress Towards Goals Slow Progress due to Activity Tolerance Assessment Summary Shelley is resting in the chair and wakes up to stimulation. She is drowsy today and needs frequent stimulation throughout this visit to stay alert and complete tasks. She even got drowsy while ambulting in the soto. She continues to need one person assist for all mobility and gait with FWW. Her Spouse is very supportive and demonstrates ability to assist her. Pt continues to have intermittent confusion that her Spouse is aware of. Discharge plan is home today with her Spouse. She could benefit from home therapy to assist in her recovery. Goals Bed Mobility Goal Standby Assistance Transfer Goal Standby Assistance,Front Wheeled Walker Gait Goal Standby Assistance,Front Wheel Walker Gait Distance 150 Other Goals ambulation using standard walker 150 ft SBA up/down 2 steps CGA using tripod cane/SPC Days to Meet Goals 5 Frequency of Treatment Frequency Of Treatment Twice a Day Treatment Plan Physical Therapy Treatment Plan Bed Mobility Training,Transfer Training,Gait Training, Therapeutic Exercise,Balance Retraining,Post Op Education, Discharge Planning,Hot or Cold Pack,Neuromuscular Re-ed Precautions Lumbar Precautions Log Roll,No Twisting,Limit Bending,Lifting Restriction of 10 lbs,Gait Belt above Incisional Area Recommendations To Nursing Amount of Assist Needed 1 Person Assist Discharge Recommendations PT Discharge Recommendations Home Health,Home vs SNF Other Discharge Recommendations Her Spouse has agreed to take her home and assist her Transportation Needs at Discharge Private Vehicle
[2020-08-31 12:00] VITALS: O2SAT 91
--- NOTE | 2020-08-31 16:38 | CM.DPC ---
DCP Continued: Therapies recommendation is home with home health vs SNF. TAJ Eli reported patient was ready for D/C with home health. [employer] Student met with Patient and her declined SNF placement. Provided education for home health agencies, there was no preference utilized [facility] services from the calendar. Spoke with Sonya at [facility] they will be able to initiate services on Monday09/02/20. Faxed clinicals, home health order and F2F to [facility]. Provided patient with the [facility] home health brochure, nursing aware. PLAN: D/C home 08/31/20 with home health. PERLA Wang, [employer] Student
== END 2020-08-31 11:50 | disposition home health service (06) | DRG 455 ==
PROVIDERS: Admitting Provider Orthopaedic Surgery Orthopaedic Surgery of the Spine; PCP Internal Medicine; Referring Provider Orthopaedic Surgery Orthopaedic Surgery of the Spine; Visit Provider Orthopaedic Surgery Orthopaedic Surgery of the Spine
PROC: 0SG10AJ Fusion of 2 or more Lumbar Vertebral Joints with Interbody Fusion Device, Posterior Approach, Anterior Column, Open Approach (ICD-10-PCS; principal; 2020-08-28 07:45)
DX: M48.062 Spinal stenosis, lumbar region with neurogenic claudication (principal); M43.16 Spondylolisthesis, lumbar region; M47.816 Spondylosis without myelopathy or radiculopathy, lumbar region; Z20.822 Contact with and (suspected) exposure to COVID-19; I10 Essential (primary) hypertension; E78.5 Hyperlipidemia, unspecified; E11.9 Type 2 diabetes mellitus without complications; Z79.84 Long term (current) use of oral hypoglycemic drugs; Z87.891 Personal history of nicotine dependence; R41.0 Disorientation, unspecified
CPT/HCPCS: 36415; 72100; 76000; 82962; 85014; 85018; 87493; 87635; 97116; 97162; 97166; 97530; 97535; C1776; C9803; C9290; J0330; J0690; J1100; J1170; J2405; J2704; J3010

== ENCOUNTER → 2021-06-22 09:05 | Outpatient (CLI) | payer OTHER, SELFPAY ==
[2020-08-28 06:40] VITALS: BMI 34.3
[2021-06-22 10:37] LABS: Add Manual Diff / Slide Review NO; Basophils Absolute Auto 0 /uL (0-100); Basophils Percent Auto 0.6 % (0-2); Eosinophils Absolute Auto 200 /uL (0-450); Eosinophils Percent Auto 3.3 % (2-4); Hematocrit 34.6 % (36-46); Hemoglobin 11.5 g/dL (12.0-16.0); Lymphocytes Absolute Auto 2200 /uL (1100-4500); Lymphocytes Percent Auto 34.5 % (25-40); Mean Corpuscular HGB Conc 33.3 % (30-36); Mean Corpuscular Hemoglobin 28.7 PG (26-34); Mean Corpuscular Volume 86.2 fL (80-100); Monocytes Absolute Auto 600 /uL (0-900); Monocytes Percent Auto 9.8 % (3-14); Neutrophils Absolute Auto 3300 /uL (1500-7000); Neutrophils Percent Auto 51.8 % (50-75); Platelet Count 241 X10^3/uL (150-400); Red Blood Cell Count 4.02 X10^6/uL (4.0-5.2); Red Cell Distribution Width 14.6 % (11.6-14.8); White Blood Cell Count 6.4 X10^3/uL (4.5-11.0)
[2021-06-22 10:48] LABS: Hemoglobin A1C% w Est Avg Glu 5.8 % (4.0-6.0)
[2021-06-22 11:12] LABS: Alanine Aminotransferase 17 IU/L (<35); Albumin Globulin Ratio 1.4 (1.0-2.8); Alkaline Phosphatase 66 U/L (38-126); Aspartate Aminotransferase 23 IU/L (14-36); BUN Creatinine Ratio 15.5 (6-22); Bilirubin Total 0.3 mg/dL (0.2-1.3); Blood Urea Nitrogen 13 mg/dL (7-17); Calcium 9.1 mg/dL (8.4-10.2); Carbon Dioxide 27 mmol/L (22-32); Chloride 104 mmol/L (98-107); Estimated Glomerular Filt Rate > 60 mL/min (>60); Globulin 2.8 g/dL (1.7-4.1); Glucose 111 mg/dL (80-110); HEMOLYSIS < 15 (0-50); Potassium 4.4 mmol/L (3.4-5.1); Sodium 140 mmol/L (137-145); Total Protein 6.8 g/dL (6.3-8.2)
== END ==
PROVIDERS: PCP Internal Medicine; Referring Provider Internal Medicine; Visit Provider Internal Medicine
DX: E11.42 Type 2 diabetes mellitus with diabetic polyneuropathy (principal)
CPT/HCPCS: 36415; 80053; 83036; 85025

== ENCOUNTER → 2021-07-28 08:20 | Outpatient (CLI) | payer OTHER, SELFPAY ==
[2020-08-28 06:40] VITALS: BMI 34.3
[2021-07-28 08:34] LABS: Add Manual Diff / Slide Review NO; Basophils Absolute Auto 100 /uL (0-100); Basophils Percent Auto 0.9 % (0-2); Eosinophils Absolute Auto 200 /uL (0-450); Eosinophils Percent Auto 2.1 % (2-4); Hematocrit 35.9 % (36-46); Lymphocytes Absolute Auto 3200 /uL (1100-4500); Lymphocytes Percent Auto 37.1 % (25-40); Mean Corpuscular HGB Conc 33.3 % (30-36); Mean Corpuscular Hemoglobin 29.1 PG (26-34); Mean Corpuscular Volume 87.3 fL (80-100); Monocytes Absolute Auto 600 /uL (0-900); Monocytes Percent Auto 7.4 % (3-14); Neutrophils Absolute Auto 4500 /uL (1500-7000); Neutrophils Percent Auto 52.5 % (50-75); Platelet Count 303 X10^3/uL (150-400); Red Blood Cell Count 4.11 X10^6/uL (4.0-5.2); Red Cell Distribution Width 15.6 % (11.6-14.8); White Blood Cell Count 8.6 X10^3/uL (4.5-11.0)
[2021-07-28 09:11] LABS: Alanine Aminotransferase 17 IU/L (<35); Albumin 4.4 g/dL (3.5-5.0); Albumin Globulin Ratio 1.5 (1.0-2.8); Alkaline Phosphatase 65 U/L (38-126); Aspartate Aminotransferase 24 IU/L (14-36); BUN Creatinine Ratio 21.7 (6-22); Bilirubin Total 0.4 mg/dL (0.2-1.3); Blood Urea Nitrogen 18 mg/dL (7-17); Calcium 9.4 mg/dL (8.4-10.2); Carbon Dioxide 26 mmol/L (22-32); Chloride 102 mmol/L (98-107); Estimated Glomerular Filt Rate > 60 mL/min (>60); Glucose 112 mg/dL (80-110); HEMOLYSIS < 15 (0-50); Potassium 4.6 mmol/L (3.4-5.1); Sodium 139 mmol/L (137-145); Total Protein 7.4 g/dL (6.3-8.2)
[2021-07-30 13:09] LABS: Chromogranin A, Serum 140.6 ng/mL (0.0-101.8)
[2021-08-05 14:35] LABS: 5-HIAA, UR 24HR 18.9 mg/24 hr (0.0-14.9); 5-HIAA, Urine 13.5 mg/L (Undefined)
== END ==
PROVIDERS: PCP Internal Medicine; Referring Provider Internal Medicine; Visit Provider Internal Medicine
DX: C78.7 Secondary malignant neoplasm of liver and intrahepatic bile duct (principal); C7A.012 Malignant carcinoid tumor of the ileum
CPT/HCPCS: 36415; 80053; 83497; 85025; 86316

== ENCOUNTER → 2021-08-03 10:29 | Outpatient (CLI) | payer OTHER, SELFPAY ==
[2020-08-28 06:40] VITALS: BMI 34.3
--- NOTE | 2021-08-03 10:31 | DI.CT.S_ITS ---
PROCEDURE: CT CHEST ABD PEL W CON INDICATIONS: Follow-up resected carcinoid, with resected liver metastases TECHNIQUE: After the administration of oral and intravenous contrast, axial sections acquired from the supraclavicular neck to the pubic symphysis. Coronal and sagittal reformats were performed. For radiation dose reduction, the following was used: automated exposure control, adjustment of mA and/or kV according to patient size. COMPARISON:[facility], CT, CT CHEST ABD PEL W CON, 08/27/2018, 12:02. [facility], CT, CT CHEST ABD PEL W CON, 08/16/2019, 10:12. [facility], CT, CT CHEST ABD PEL W CON, 07/29/2020, 9:44. FINDINGS: Image quality: Excellent. CHEST: Lower Neck: No enlarged lymph nodes. Thyroid: Within normal limits. Axillae: No enlarged lymph nodes. Chest Wall: Unremarkable. Lungs and Airways: No consolidation or suspicious nodules. Pleura: No pneumothorax or pleural effusions. Heart: Heart size is normal. No pericardial effusion. Thoracic Vessels: The aorta and pulmonary arteries demonstrate normal size. Mediastinum and Freda: No enlarged lymph nodes. Esophagus: No wall thickening. No hiatal hernia. ABDOMEN: Liver: Liver is enlarged with steatosis. There is a focus of low attenuation within the superior right hepatic lobe seen on series 2, image 40 measuring approximately 2.8 x 2.7 cm. This is new compared to prior exam. Gallbladder: Removed. Biliary ducts: Unremarkable. Pancreas: Unremarkable. Spleen: Unremarkable. Adrenal Glands: Unremarkable. Kidneys and Ureters: Unremarkable. Stomach and Bowel: Stomach, small bowel loops, and colon are unremarkable. Peritoneum: No abnormal intraperitoneal fluid. No free air. Ventral Wall: Low-density nodules are noted along the anterior rectus muscle of the upper abdomen on series 2, image 59, unchanged. Abdominal Nodes: No retroperitoneal or mesenteric adenopathy by size criteria. Vessels: Aorta and inferior vena cava are normal in size. PELVIS: Pelvic Organs: Unremarkable. Bladder: Unremarkable. Pelvic Nodes: No enlarged lymph nodes. Miscellaneous: No inguinal hernias are seen. Bones: Unremarkable. IMPRESSION: 1. New low-attenuation focus within the left hepatic lobe as above. This is concerning for metastatic disease. 2. Low-density nodules along the anterior rectus muscle of the upper abdomen, unchanged. Dictated by: Deedee Humphrey M.D. on 08/03/2021 at 15:19 Approved by: Deedee Humphrey M.D. on 08/03/2021 at 16:42
== END ==
PROVIDERS: PCP Internal Medicine; Referring Provider Internal Medicine; Visit Provider Internal Medicine
DX: C7A.012 Malignant carcinoid tumor of the ileum (principal); C78.7 Secondary malignant neoplasm of liver and intrahepatic bile duct; K76.0 Fatty (change of) liver, not elsewhere classified
CPT/HCPCS: 71260; 74177; Q9967

== ENCOUNTER → 2021-11-26 10:00 | Outpatient (CLI) | payer OTHER, SELFPAY ==
[2020-08-28 06:40] VITALS: BMI 34.3
--- NOTE | 2021-11-26 10:01 | DI.CT.S_ITS ---
PROCEDURE: CT CHEST ABD PEL W CON INDICATIONS: follow up carcinoid tumor liver lesion TECHNIQUE: After the administration of oral and intravenous contrast, axial sections acquired from the supraclavicular neck to the pubic symphysis. Coronal and sagittal reformats were performed. For radiation dose reduction, the following was used: automated exposure control, adjustment of mA and/or kV according to patient size. COMPARISON: Outside Facility, RG, CT PET SKULL BASE TO MID THIGH, 09/09/2021, 11:22. [facility], CT, CT CHEST ABD PEL W CON, 08/03/2021, 12:11. CT chest abdomen pelvis 07/29/2020. FINDINGS: Image quality: Excellent. CHEST: Lower Neck: No enlarged lymph nodes. Axillae: No enlarged lymph nodes. Chest Wall: Unremarkable. Lungs and Airways: No consolidation or suspicious nodules. Pleura: No pneumothorax or pleural effusions. Heart: Heart size is normal. No pericardial effusion. Thoracic Vessels: The aorta and pulmonary arteries demonstrate normal size. Mediastinum and Freda: No enlarged lymph nodes. Esophagus: No wall thickening. No hiatal hernia. ABDOMEN: Liver: Previously demonstrated hypodense lesion in hepatic segment 2 now measures 3.3 x 2.7 x 3.0 centimeters (series 2, image 45 and series 3, image 32) previously 2.8 x 2.7 x 2.6 centimeters. 9 millimeter hypodensity in segment 4 adjacent to the fissure for the ligamentum teres is not significantly changed, indeterminate. No definite new liver lesions identified. Gallbladder: Surgically absent. Biliary ducts: Unremarkable. Pancreas: Unremarkable. Spleen: Unremarkable. Adrenal Glands: Unremarkable. Kidneys and Ureters: Unremarkable. Stomach and Bowel: No bowel obstruction. Peritoneum: No abnormal intraperitoneal free fluid. No free air. Ventral Wall: Prior ventral hernia repair with mesh. Unchanged lenticular fluid collection at the midline epigastric region abutting the posterior margin of the rectus musculature. Abdominal Nodes: No retroperitoneal or mesenteric adenopathy by size criteria. Vessels: Aorta and inferior vena cava are normal in size. PELVIS: Pelvic Organs: Unremarkable. Bladder: Unremarkable. Pelvic Nodes: No enlarged lymph nodes. Miscellaneous: No inguinal hernias are seen. Bones: Multilevel degenerative change of the visualized spine. Prior L3-S1 fusion. Similar appearance of the previously visualized L1 superior endplate compression deformity. IMPRESSION: 1. Mild increase in size of the previously demonstrated lesion in hepatic segment 2. 2. Otherwise no significant interval change. Dictated by: Andre Zaragoza M.D. on 11/26/2021 at 16:20 Approved by: Andre Zaragoza M.D. on 11/26/2021 at 17:03
== END ==
PROVIDERS: PCP Internal Medicine; Referring Provider Internal Medicine Medical Oncology; Visit Provider Internal Medicine Medical Oncology
DX: C7A.012 Malignant carcinoid tumor of the ileum (principal); K76.9 Liver disease, unspecified
CPT/HCPCS: 71260; 74177; Q9967

== ENCOUNTER → 2022-01-06 14:44 | Outpatient (CLI) | payer OTHER, SELFPAY ==
[2020-08-28 06:40] VITALS: BMI 34.3
--- NOTE | 2022-01-06 | DI.ECHO.S_ITS ---
[facility]+ [facility] +---------+ : : [address] [place] : : : : [id number] : : : : Phone: [phone]+ Echocardiogram Report + + :Name: BRITTANY JEAN BAPTISTE Study Date: 01/06/2022 Height: 63.5 in: :[facility] ReadingLocation: Weight: 178 lb : : Gender: Female BSA: 1.9 m2 : :: 1945 Age: 76 yrs BP: 132/76 mmHg: :Reason For Study: MALIGNANT NEUROENDOCRINE TUMORS : :Ordering Physician: TERRY, : :NICK Salvador MD Performed By: Catalina Bird : :Referring: NICK STEWART MD : + + Interpretation Summary The left ventricle is normal in size. Left ventricular systolic function appears normal without focal wall motion abnormalities. The ejection fraction is estimated to be 60-65%. The right ventricle is normal in size and function. The left atrium is moderately dilated. The right atrium is mildly dilated. There is no significant valvular heart disease. The aortic root is normal size. Procedure: A two-dimensional transthoracic echocardiogram with color flow and Doppler was performed. The study quality was technically adequate. Comparison is made with the echocardiogram of 06/10/2016. The patient was in sinus rhythm with heart rates between 70-85 bpm during the exam. Left Ventricle: The left ventricle is normal in size. There is mild concentric left ventricular hypertrophy. Left ventricular systolic function appears normal without focal wall motion abnormalities. The ejection fraction is estimated to be 60-65%. Diastolic function could not be accurately assessed due to contradictory data. Right Ventricle: The right ventricle is normal in size and function. Atria: The left atrium is moderately dilated. The right atrium is mildly dilated. There is no Doppler evidence for an interatrial shunt. Mitral Valve: There is moderate mitral annular calcification. There is no mitral regurgitation noted. Aortic Valve: The aortic valve is trileaflet. The aortic valve opens well. There is no aortic valve stenosis. No aortic regurgitation is present. Tricuspid Valve: The tricuspid valve is normal in structure and function. There is trace tricuspid regurgitation. Pulmonic Valve: The pulmonic valve leaflets are thin and pliable; valve motion is normal. There is no pulmonic valvular regurgitation. There is no significant valvular heart disease. Great Vessels: The aortic root is normal size. The dimensions of the ascending aorta are normal. The IVC is of normal diameter and collapses greater than 50% with a sniff. This suggests a low right atrial pressure of 3 mm Hg. Pericardium/ Pleura There is no pericardial effusion. There has been no significant change since the previous study. MMode/2D Measurements & Calculations LVIDd: 4.5 cm LVOT diam: 2.0 cm LVIDs: 2.6 cm Ao root diam: 3.4 cm FS: 43.0 % asc Aorta Diam: 2.9 cm IVSd: 1.1 cm Ao Arch Diam (Prox Trans): 3.4 cm LVPWd: 1.0 cm LV watters. diameter/BSA (cm/m^2): 2.4 LV sys. diameter/BSA (cm/m^2): 1.4 LA A2 area: 26.7 cm2 RA long axis: 4.9 cm LA A4 area: 20.4 cm2 RA area: 14.4 cm2 LA length (vol): 5.4 cm RA vol: 35.8 ml LA vol: 85.2 ml RA : 19.3 ml/m2 LA vol index: 46.0 ml/m2 IVC diam: 1.7 cm RVD1 (basal): 2.9 cm RVD2 (mid): 2.6 cm TAPSE: 1.9 cm Doppler Measurements & Calculations Ao V2 max: 128.8 cm/sec LVOT Max Ovidio: 103.5 cm/sec Ao V2 mean: 95.1 cm/sec LV V1 max P.3 mmHg Ao max P.6 mmHg LV V1 VTI: 26.2 cm Ao mean P.9 mmHg ILIANA(I,D): 2.9 cm2 Ao V2 VTI: 29.0 cm ILIANA(V,D): 2.5 cm2 sev ratio: 0.90 ILIANA indexed to BSA (cm^2/m^2): 1.5 MV E max ovidio: 88.6 cm/sec PA V2 max: 119.0 cm/sec MV A max ovidio: 143.2 cm/sec PA V2 mean: 82.1 cm/sec MV E/A: 0.62 PA mean P.1 mmHg Med Peak E' Ovidio: 4.1 cm/sec PA pr(Accel): 25.9 mmHg E/E' med: 21.7 Lat Peak E' Ovidio: 3.6 cm/sec E/E' lat: 24.7 E/e' average: 23.2 MV dec time: 0.35 sec MVA(VTI): 2.4 cm2 MV V2 mean: 75.3 cm/sec SV(LVOT): 83.0 ml MV mean P.6 mmHg MV V2 VTI: 35.3 cm Reading Physician:06:17 PM
== END ==
PROVIDERS: PCP Internal Medicine; Referring Provider Surgery; Visit Provider Surgery
DX: C7A.8 Other malignant neuroendocrine tumors (principal); C7B.8 Other secondary neuroendocrine tumors; I34.81 Nonrheumatic mitral (valve) annulus calcification
CPT/HCPCS: 93306

== ENCOUNTER → 2022-01-11 16:02 | Outpatient (CLI) | payer OTHER, SELFPAY ==
[2020-08-28 06:40] VITALS: BMI 34.3
--- NOTE | 2022-01-11 16:04 | DI.MG.S_ITS ---
BILATERAL DIGITAL SCREENING MAMMOGRAM 3D/2D WITH CAD: 01/11/2022 CLINICAL: Routine screening. Family history of breast cancer. Comparison is made to exams dated: 07/29/2020 mammogram, 07/29/2019 mammogram, and 07/27/2018 mammogram - [facility]. There are scattered areas of fibroglandular density in both breasts (category b / 25%-50% glandular tissue). Current study was also evaluated with a Computer Aided Detection (CAD) system. There is a focal asymmetry in the right breast at 5 o'clock middle depth. No other significant masses, calcifications, or other findings are seen in either breast. IMPRESSION: INCOMPLETE: NEEDS ADDITIONAL IMAGING EVALUATION The focal asymmetry in the right breast is indeterminate. Additional views with possible ultrasound are recommended. Follow-up with ACR/ACS guidelines. Based on the Tyrer Cuzick model (a risk assessment model) the patient's lifetime risk is 5.2% and her 10 year risk is 4.7%. According to the ACR, ACS, and NCCN guidelines, an annual breast MRI exam along with mammogram is recommended if the patient's lifetime risk is 20% or greater. This exam was interpreted at Station ID: [id number]. NOTE: For mammograms, a report in lay terms will be sent to the patient. Approximately 15% of breast malignancies will not be visualized mammographically. In the management of a palpable breast mass, a negative mammogram must not discourage biopsy of a clinically suspicious lesion. Electronically Signed By: Karo roman/nicole:01/12/2022 13:38:43 letter sent: Additional Imaging Needed ACR BI-RADS Category 0: Incomplete 3340F
== END ==
PROVIDERS: PCP Internal Medicine; Referring Provider Internal Medicine; Visit Provider Internal Medicine
DX: Z12.31 Encounter for screening mammogram for malignant neoplasm of breast (principal); Z80.3 Family history of malignant neoplasm of breast
CPT/HCPCS: 77063; 77067

== ENCOUNTER → 2022-01-17 15:39 | Outpatient (CLI) | payer OTHER, SELFPAY ==
[2020-08-28 06:40] VITALS: BMI 34.3
[2022-01-17 17:38] LABS: Add Manual Diff / Slide Review NO; Basophils Absolute Auto 0 /uL (0-100); Basophils Percent Auto 0.6 % (0-2); Eosinophils Absolute Auto 100 /uL (0-450); Eosinophils Percent Auto 2.7 % (2-4); Hematocrit 37.6 % (36-46); Hemoglobin 12.4 g/dL (12.0-16.0); Lymphocytes Absolute Auto 2300 /uL (1100-4500); Lymphocytes Percent Auto 42.7 % (25-40); Mean Corpuscular HGB Conc 32.8 % (30-36); Mean Corpuscular Hemoglobin 28.2 PG (26-34); Mean Corpuscular Volume 85.8 fL (80-100); Monocytes Absolute Auto 800 /uL (0-900); Monocytes Percent Auto 14.3 % (3-14); Neutrophils Absolute Auto 2100 /uL (1500-7000); Neutrophils Percent Auto 39.7 % (50-75); Platelet Count 240 X10^3/uL (150-400); Red Blood Cell Count 4.39 X10^6/uL (4.0-5.2); Red Cell Distribution Width 14.4 % (11.6-14.8); White Blood Cell Count 5.3 X10^3/uL (4.5-11.0)
[2022-01-17 17:55] LABS: Alanine Aminotransferase 25 IU/L (<35); Albumin 4.2 g/dL (3.5-5.0); Albumin Globulin Ratio 1.3 (1.0-2.8); Alkaline Phosphatase 68 U/L (38-126); Aspartate Aminotransferase 32 IU/L (14-36); Bilirubin Total 0.4 mg/dL (0.2-1.3); Blood Urea Nitrogen 23 mg/dL (7-17); Calcium 9.3 mg/dL (8.4-10.2); Carbon Dioxide 26 mmol/L (22-32); Chloride 99 mmol/L (98-107); Estimated Glomerular Filt Rate 59 mL/min (>60); Estimated Glomerular Filt Rate > 60 mL/min (>60); Globulin 3.3 g/dL (1.7-4.1); Glucose 87 mg/dL (80-110); HEMOLYSIS < 15 (0-50); Sodium 137 mmol/L (137-145); Total Protein 7.5 g/dL (6.3-8.2)
== END ==
PROVIDERS: Specialist; PCP Internal Medicine; Referring Provider Surgery; Visit Provider Surgery
DX: C7A.8 Other malignant neuroendocrine tumors (principal); C7B.8 Other secondary neuroendocrine tumors
CPT/HCPCS: 36415; 80053; 82565; 85025

== ENCOUNTER → 2022-01-18 12:33 | Outpatient (CLI) | payer OTHER, SELFPAY ==
[2020-08-28 06:40] VITALS: BMI 34.3
--- NOTE | 2022-01-18 13:09 | DI.CT.S_ITS ---
PROCEDURE: CT ABDOMEN WWO PELVIS W INDICATIONS: EVALUATE FOR LIVER METS TECHNIQUE: After the administration of oral contrast, 5 mm thick sections acquired from the diaphragms to the iliac crests. After the administration of intravenous contrast, 5 mm thick sections acquired from the diaphragms to the symphysis. 5 mm thick coronal and sagittal reformats were acquired. For radiation dose reduction, the following was used: automated exposure control, adjustment of mA and/or kV according to patient size. COMPARISON: [facility], CT, CT ABDOMEN WO/W CON, 07/06/2017, 13:51. [place], [place] OCTREOTIDE TUMOR SPECT, 01/04/2016, 13:33. [facility], CO, CO OCTREOTIDE TUMOR SPECT, 08/02/2017, 9:18. [facility], CT, CT CHEST ABD PEL W ABD WO, 10/30/2017, 10:10. [facility], CT, CT CHEST ABD PEL W CON, 08/27/2018, 12:02. [facility], CT, CT CHEST ABD PEL W CON, 08/16/2019, 10:12. [facility], CT, CT CHEST ABD PEL W CON, 07/29/2020, 9:44. [facility], CT, CT CHEST ABD PEL W CON, 11/26/2021, 11:52. [facility], CT, CT CHEST ABD PEL W CON, 08/03/2021, 12:11. Outside Facility, RG, CT PET SKULL BASE TO MID THIGH, 09/09/2021, 11:22. FINDINGS: Image quality: Excellent. ABDOMEN: Lung bases: There is a 5 mm subpleural nodule in the right lower lobe (series 6, image 8), unchanged. Heart size is normal. Small hiatal hernia. Solid organs: Liver is normal in size. Multiple hepatic lesions are identified, unchanged in size. Lesion 1: 3.3 x 3.3 x 2.8 cm; segment 2; series 5, image 9. Lesion 2: 1.4 x 1.2 x 1.5 cm; segment 4; series 5 image 23. Lesion 3: 0.9 x 0.8 cm; segment 4 adjacent to the falciform ligament; series 5 image 17. Lesion 4: 0.7 x 1.3 cm; segment 7 subscapular; series 5, image 13. Gallbladder is surgically absent. Biliary system is non-dilated. Pancreas enhances normally. Spleen is normal in size and enhancement. No adrenal nodules. Both kidneys are normal in size. No hydronephrosis or nephrolithiasis. Bowel and peritoneum: Stomach, small and large bowel loops are normal in caliber and wall thickness. Postsurgical changes in the right lower abdomen. No free fluid or air. Nodes and vessels: No retroperitoneal or mesenteric adenopathy by size criteria. Aorta and inferior vena are normal in caliber. Miscellaneous: There is an irregular lobulated soft tissue density along the upper anterior abdominal wall measuring 1.9 x 5.5 cm (series 2, image 23). PELVIS: Genitourinary: Bladder wall thickness is normal. Endometrium appears thickened measuring 1.2 cm. There is a small amount of fluid within the uterus. Miscellaneous: No inguinal hernias or adenopathy. Bones: No suspicious bony lesions. Mild wedge deformity of L1. There is also mild compression of superior endplate of L2. Both are unchanged. There are degenerative and postsurgical changes in lumbar spine. IMPRESSION: 1. Stable liver lesions. 2. Irregular soft tissue density in the upper anterior abdominal wall appears unchanged. 3. Thickened endometrium with appearance of endometrial fluid. The finding is abnormal for a postmenopausal woman. Recommend pelvic ultrasound for follow-up. Dictated by: Cordell Chang M.D. on 01/19/2022 at 8:50 Approved by: Cordell Chang M.D. on 01/19/2022 at 9:35
== END ==
PROVIDERS: PCP Internal Medicine; Referring Provider Surgery; Visit Provider Surgery
DX: C7A.8 Other malignant neuroendocrine tumors (principal); C7B.8 Other secondary neuroendocrine tumors; K76.9 Liver disease, unspecified; R93.89 Abnormal findings on diagnostic imaging of other specified body structures; R91.1 Solitary pulmonary nodule; K44.9 Diaphragmatic hernia without obstruction or gangrene; M79.89 Other specified soft tissue disorders; Z90.49 Acquired absence of other specified parts of digestive tract
CPT/HCPCS: 74178; Q9967

== ENCOUNTER → 2022-03-11 12:00 | Outpatient (CLI) | payer OTHER, SELFPAY ==
[2020-08-28 06:40] VITALS: BMI 34.3
--- NOTE | 2022-03-11 | DI.MG.S_ITS ---
UNILATERAL RIGHT DIGITAL DIAGNOSTIC MAMMOGRAM 3D/2D WITH ADDITIONAL VIEWS: 03/11/2022 CLINICAL: Additional evaluation requested from prior study. Comparison is made to exams dated: 01/11/2022 mammogram, 07/29/2020 mammogram, 07/29/2019 mammogram, 07/27/2018 mammogram, and 11/15/2016 mammogram - [facility]. There are scattered areas of fibroglandular density in the right breast (category b / 25%-50% glandular tissue). The previously seen focal asymmetry in the right breast partially disperses on spot compression views, and overall appears stable when compared to multiple prior exams, compatible with normal fibroglandular breast tissue. No significant masses, calcifications, or other findings are seen in the breast. IMPRESSION: NEGATIVE There is no mammographic evidence of malignancy. Return to annual mammogram screening schedule is recommended. Based on the Tyrer Cuzick model (a risk assessment model) the patient's lifetime risk is 4.8% and her 10 year risk is 4.8%. According to the ACR, ACS, and NCCN guidelines, an annual breast MRI exam along with mammogram is recommended if the patient's lifetime risk is 20% or greater. This exam was interpreted at Station ID: [id number]. NOTE: For mammograms, a report in lay terms will be sent to the patient. Approximately 15% of breast malignancies will not be visualized mammographically. In the management of a palpable breast mass, a negative mammogram must not discourage biopsy of a clinically suspicious lesion. Electronically Signed By: Andre parker/nicole:03/11/2022 12:32:09 letter sent: Normal Exam ACR BI-RADS Category 1: Negative 3341F
== END ==
PROVIDERS: PCP Internal Medicine; Referring Provider Internal Medicine; Visit Provider Internal Medicine
DX: R92.8 Other abnormal and inconclusive findings on diagnostic imaging of breast (principal); Z78.0 Asymptomatic menopausal state; Z13.820 Encounter for screening for osteoporosis; M85.851 Other specified disorders of bone density and structure, right thigh; Z90.710 Acquired absence of both cervix and uterus
CPT/HCPCS: 77065; 77080; 77081; G0279

== ENCOUNTER → 2023-01-18 07:53 | Outpatient (CLI) | payer OTHER, SELFPAY ==
[2020-08-28 06:40] VITALS: BMI 34.3
--- NOTE | 2023-01-18 | DI.MG.S_ITS ---
BILATERAL DIGITAL SCREENING MAMMOGRAM 3D/2D WITH CAD: 01/18/2023 CLINICAL: Routine screening. Family history of breast cancer. Comparison is made to exams dated: 03/11/2022 mammogram, 01/11/2022 mammogram, and 07/29/2020 mammogram - [facility]. There are scattered areas of fibroglandular density in both breasts (category b / 25%-50% glandular tissue). Current study was also evaluated with a Computer Aided Detection (CAD) system. There is a biopsy clip in the left breast. No significant masses, calcifications, or other findings are seen in either breast. There has been no significant interval change. IMPRESSION: NEGATIVE There is no mammographic evidence of malignancy. A 1 year screening mammogram is recommended. Based on the Tyrer Cuzick model (a risk assessment model) the patient's lifetime risk is 4.8% and her 10 year risk is 4.8%. According to the ACR, ACS, and NCCN guidelines, an annual breast MRI exam along with mammogram is recommended if the patient's lifetime risk is 20% or greater. This exam was interpreted at Station ID: [id number]. NOTE: For mammograms, a report in lay terms will be sent to the patient. Approximately 15% of breast malignancies will not be visualized mammographically. In the management of a palpable breast mass, a negative mammogram must not discourage biopsy of a clinically suspicious lesion. Electronically Signed By: Derian banks/nicole:01/18/2023 08:46:41 letter sent: Normal Exam ACR BI-RADS Category 1: Negative 3341F
== END ==
PROVIDERS: PCP Internal Medicine; Referring Provider Internal Medicine; Visit Provider Internal Medicine
DX: Z12.31 Encounter for screening mammogram for malignant neoplasm of breast (principal); Z80.3 Family history of malignant neoplasm of breast
CPT/HCPCS: 77063; 77067

== ENCOUNTER → 2024-01-20 10:08 | Outpatient (CLI) | payer MEDICARE, SELFPAY ==
[2020-08-28 06:40] VITALS: BMI 34.3
--- NOTE | 2024-01-20 | DI.MG.S_ITS ---
BILATERAL DIGITAL SCREENING MAMMOGRAM 3D/2D WITH CAD: 01/20/2024 CLINICAL: Routine screening. Family history of breast cancer. Comparison is made to exams dated: 01/18/2023 mammogram, 01/11/2022 mammogram, and 07/29/2020 mammogram - [facility]. There are scattered areas of fibroglandular density (category b / 25%-50% glandular tissue). Current study was also evaluated with a Computer Aided Detection (CAD) system. There are benign calcifications in both breasts. There also is a biopsy clip in both breasts. No significant masses, calcifications, or other findings are seen in either breast. There has been no significant interval change. IMPRESSION: BENIGN There is no mammographic evidence of malignancy. A 1 year screening mammogram is recommended. Based on the Tyrer Cuzick model (a risk assessment model) the patient's lifetime risk is 4.4% and her 10 year risk is 0.0%. According to the ACR, ACS, and NCCN guidelines, an annual breast MRI exam along with mammogram is recommended if the patient's lifetime risk is 20% or greater. This exam was interpreted at Station ID: [id number]. NOTE: For mammograms, a report in lay terms will be sent to the patient. Approximately 15% of breast malignancies will not be visualized mammographically. In the management of a palpable breast mass, a negative mammogram must not discourage biopsy of a clinically suspicious lesion. Electronically Signed By: Bettye bailey/nicole:01/22/2024 10:59:32 letter sent: Normal Exam ACR BI-RADS Category 2: Benign
== END ==
PROVIDERS: PCP Internal Medicine; Referring Provider Internal Medicine; Visit Provider Internal Medicine
DX: Z12.31 Encounter for screening mammogram for malignant neoplasm of breast (principal); Z80.3 Family history of malignant neoplasm of breast
CPT/HCPCS: 77063; 77067

== ENCOUNTER → 2024-09-04 09:25 | Outpatient (CLI) | payer MEDICARE, SELFPAY ==
[2020-08-28 06:40] VITALS: BMI 34.3
--- NOTE | 2024-09-04 09:27 | DI.RAD.S_ITS ---
PROCEDURE: XR LUMBAR SPINE MIN 4V INDICATIONS: BACK PAIN TECHNIQUE: 5 views of the lumbar spine were acquired, including bilateral oblique views. COMPARISON: [facility], CR, XR LUMBAR SPINE MIN 4V, 01/08/2020, 13:21. FINDINGS: Bones: L3-S1 PLIF. Fixation hardware is in expected position and is intact. 5 nonrib-bearing vertebrae are present. There is approximately 5 millimeters of L 2-L3 retrolisthesis. There is approximately 3 millimeters of L3-L4 anterolisthesis. There is approximately 5 millimeters of L4-L5 anterolisthesis.. Loss of height noted in the L1 vertebral body compatible with compression fracture of indeterminate age. L1 compression fracture results in approximately 20% loss of normal vertebral body height. No kyphosis or retropulsed fragments associated with the L1 compression fracture. No suspicious bony lesions. Spine degenerative disc disease and facet arthropathy. Soft tissues: Overlying bowel gas pattern is normal. No suspicious soft tissue calcifications. Oblique images: No pars defects. IMPRESSION: L3-S1 PLIF. L1 compression fracture of indeterminate age. Multilevel degenerative disc disease and facet arthropathy. Dictated by: Pam Weathers MD, PhD on 09/04/2024 at 10:06 Approved by: Pam Weathers MD, PhD on 09/04/2024 at 10:09
== END ==
PROVIDERS: PCP Internal Medicine; Referring Provider Physical Medicine & Rehabilitation; Visit Provider Physical Medicine & Rehabilitation
DX: M47.27 Other spondylosis with radiculopathy, lumbosacral region (principal); M47.26 Other spondylosis with radiculopathy, lumbar region; M51.16 Intervertebral disc disorders with radiculopathy, lumbar region; M43.16 Spondylolisthesis, lumbar region; M48.56XA Collapsed vertebra, not elsewhere classified, lumbar region, initial encounter for fracture; Z98.1 Arthrodesis status
CPT/HCPCS: 72110